=== PATIENT | female | born 1950 | race Caucasian/White ===

== ENCOUNTER 2019-01-03 14:15 | Emergency (ER) | payer MEDICARE ==
[~2019-01-03] VITALS: Ht 149.9 cm; Wt 112.5 kg
[~2019-01-03 14:15] MED LIST: ALBU2.5V8 IH; AZEL137S3 NS; CELE200C PO; CYCL10TA2 PO; DIME50TA10 PO; DOCU50CA11 PO; FLUO40CA9 PO; FLUT1DIS5 IH; FLUT9.9S NS; FOLI1TAB16 PO; GABA300C18 PO; LISI-130 PO; MONT10TA9 PO; ONDA8TAB9 PO; OXYC10TA46 PO; PANT40TA5 PO; POTA20TA84 PO; PRAV80TA2 PO; atarax
[2019-01-03] MEDS ORDERED: IPRATRPIUM/ALBUTEROL 0.5/2.5MG 3 ML NEBU. NEB ONE (15:00)
[2019-01-03 15:51] LABS: BASO # 0.1 x10^3/uL (0.0-0.2); BASO % 1 % (0-3); EOS # 0.2 x10^3/uL (0.0-0.7); EOS % 3 % (0-3); HEMATOCRIT 42.1 % (36.0-47.0); HEMOGLOBIN 14.1 g/dL (12.0-15.5); LYMPH # 2.7 x10^3/uL (1.0-4.8); LYMPH % 30 % (24-48); MEAN CORPUSCULAR HEMOGLOBIN 30 pg (25-35); MEAN CORPUSCULAR HGB CONC 33 g/dL (31-37); MEAN CORPUSCULAR VOLUME 90 fL (79-100); MONO # 0.6 x10^3/uL (0.0-1.1); MONO % 7 % (0-9); NEUT # 5.1 x10^3uL (1.8-7.7); NEUT % 59 % (31-73); PLATELET COUNT 236 x10^3/uL (140-400); RED CELL DISTRIBUTION WIDTH 13.6 % (11.5-14.5); WHITE BLOOD COUNT 8.8 x10^3/uL (4.0-11.0)
[2019-01-03 16:11] LABS: CALCIUM 9.2 mg/dL (8.5-10.1); CREATININE 1.4 mg/dL (0.6-1.0); GFR 37.4
[2019-01-03 16:16] LABS: ALBUMIN 2.9 g/dL (3.4-5.0); ALBUMIN/GLOBULIN RATIO 0.8 (1.0-1.7); TOTAL BILIRUBIN 0.5 mg/dL (0.2-1.0); TOTAL PROTEIN 6.6 g/dL (6.4-8.2)
[2019-01-03 17:00] VITALS: BP 160/68
[2019-01-03] MEDS ORDERED: oxyCODONE IR 5 MG TABLET PO ONE (17:15)
--- NOTE | 2019-01-03 17:29 | PHYS DOC ---
Past Medical History Past Medical History: Asthma, Depression, Hypertension, Other Additional Past Medical Histor: chronic back pain, chronic knee pain Past Surgical History: Other Additional Past Surgical Histo: back, knee Alcohol Use: None Drug Use: None Adult General Chief Complaint Chief Complaint: SHORTNESS OF BREATH HPI HPI 60-year-old female who is presenting with a chief complaint of rib pain she apparently was in a reclining chair in the ICU visiting her and it sort of moved too quickly and she got rocked off of it landing on her right chest also bumped her schuster and bumped cut on the side of her head no loss of consciousness this occurred 3 days ago the main problem right now is the pain in the right rib area is sharp worse with coughing worse with deep breathing in addition she has suffered from a recent upper respiratory infection she is getting over that no fever Review of Systems Review of Systems Constitutional: Denies fever or chills [] Eyes: Denies change in visual acuity, redness, or eye pain [] HENT: Denies nasal congestion or sore throat [] Respiratory: a [] : Denies dysuria or hematuria [] Musculoskeletal: Chronic pain Integument: Denies rash or skin lesions [] Neurologic: Denies headache, focal weakness or sensory changes [] Endocrine: Denies polyuria or polydipsia [] All other systems were reviewed and found to be within normal limits, except as documented in this note. Current Medications Current Medications Current Medications Medications (Trade) Dose Ordered Sig/Misty Start Time Stop Time Status Last Admin Dose Admin Albuterol/ Ipratropium (Duoneb) 3 ml 1X ONCE 01/03/19 15:00 01/03/19 15:01 DC 01/03/19 15:23 3 ML Oxycodone HCl (Roxicodone) 10 mg 1X ONCE 01/03/19 17:15 01/03/19 17:16 DC Allergies Allergies Allergies Coded Allergies Type Severity Reaction Last Updated Verified ibuprofen Allergy Severe Anaphylaxis -cuts off air supply per patient, TAKES ALLEVE 12/01/14 Yes Garlic. Allergy Intermediate 12/02/14 Yes Milk Containing Products Allergy Intermediate 12/02/14 Yes Penicillins Allergy Intermediate 11/29/14 No Pork/Porcine Containing Products Allergy Intermediate 12/01/14 No acetaminophen Allergy Intermediate 11/30/14 No aspirin Allergy Intermediate 11/29/14 No atorvastatin Allergy Intermediate 11/30/14 No cephalexin Allergy Intermediate 11/30/14 No chlorzoxazone Allergy Intermediate 11/30/14 No codeine Allergy Intermediate 11/29/14 No diclofenac Allergy Intermediate 11/30/14 No diphenhydramine Allergy Intermediate 11/30/14 No doxycycline Allergy Intermediate 11/30/14 No egg Allergy Intermediate 12/01/14 No erythromycin base Allergy Intermediate 11/30/14 No etodolac Allergy Intermediate 11/30/14 No ezetimibe Allergy Intermediate 11/30/14 No glucosamine Allergy Intermediate 11/30/14 No guaifenesin Allergy Intermediate 11/30/14 No hydrocodone Allergy Intermediate 11/30/14 No iodine Allergy Intermediate 11/30/14 No kiwi Allergy Intermediate 12/01/14 No methylprednisolone Allergy Intermediate 11/30/14 No orphenadrine Allergy Intermediate 11/30/14 No peanut Allergy Intermediate 12/01/14 No phenazopyridine Allergy Intermediate 11/30/14 No phenytoin Allergy Intermediate 11/30/14 No ranitidine Allergy Intermediate 11/30/14 No rosuvastatin Allergy Intermediate 11/30/14 No salicylic acid Allergy Intermediate 11/30/14 No shellfish derived Allergy Intermediate 12/01/14 No simvastatin Allergy Intermediate 11/30/14 No sulfite Allergy Intermediate 11/30/14 No tramadol Allergy Intermediate 11/30/14 No tree nut Allergy Intermediate 12/02/14 Yes aspartame Allergy Unknown 01/03/19 Yes cheese Allergy Unknown 01/03/19 Yes pork derived (porcine) Allergy Unknown 01/03/19 Yes walnut Allergy Unknown 01/03/19 Yes yellow dye Allergy Unknown 01/03/19 Yes morphine Adverse Reaction Intermediate vomiting 11/30/14 No Uncoded Allergies Type Severity Reaction Last Updated Verified LODINE Allergy Unknown HIVES 01/03/19 MSG Allergy Unknown 01/03/19 NORGETIC FORTE Allergy Unknown 01/03/19 TURTRAZINE Allergy Unknown 01/03/19 Physical Exam Physical Exam Constitutional: Well developed, well nourished, no acute distress, non-toxic appearance. [] HENT: Normocephalic, atraumatic, bilateral external ears normal, oropharynx moist, no oral exudates, nose normal. [] Eyes: PERRLA, EOMI, conjunctiva normal, no discharge. [] Neck: Normal range of motion, mild just behind the ear but no focal midline tenderness, supple, no stridor. [] Cardiovascular:Heart rate regular rhythm, no murmur [] Lungs & Thorax: Patient is tenderness to palpation of the right rib area there is witnessed ecchymosis approximately 2 cm posterior mid scapular line no crepitus respiratory sounds are normal Abdomen: Bowel sounds normal, soft, no tenderness, no masses, no pulsatile masses. [] Skin: Warm, dry, no erythema, no rash. [] Back: No tenderness, no CVA tenderness. [] Extremities: Mild at the anterior schuster tenderness, no cyanosis, no clubbing, ROM intact, 1+ edema Neurologic: Alert and oriented X 3, normal motor function, normal sensory function, no focal deficits noted. [] Psychologic: Affect normal, judgement normal, mood normal. [] Current Patient Data Vital Signs Vital Signs Date Time Temp Pulse Resp B/P (MAP) Pulse Ox O2 Delivery O2 Flow Rate FiO2 01/03/19 15:23 96 Room Air 01/03/19 14:40 98.3 68 20 197/78 (117) 98.3 Lab Values Laboratory Tests Test 01/03/19 15:40 White Blood Count 8.8 x10^3/uL (4.0-11.0) Red Blood Count 4.70 x10^6/uL (3.50-5.40) Hemoglobin 14.1 g/dL (12.0-15.5) Hematocrit 42.1 % (36.0-47.0) Mean Corpuscular Volume 90 fL (79-100) Mean Corpuscular Hemoglobin 30 pg (25-35) Mean Corpuscular Hemoglobin Concent 33 g/dL (31-37) Red Cell Distribution Width 13.6 % (11.5-14.5) Platelet Count 236 x10^3/uL (140-400) Neutrophils (%) (Auto) 59 % (31-73) Lymphocytes (%) (Auto) 30 % (24-48) Monocytes (%) (Auto) 7 % (0-9) Eosinophils (%) (Auto) 3 % (0-3) Basophils (%) (Auto) 1 % (0-3) Neutrophils # (Auto) 5.1 x10^3uL (1.8-7.7) Lymphocytes # (Auto) 2.7 x10^3/uL (1.0-4.8) Monocytes # (Auto) 0.6 x10^3/uL (0.0-1.1) Eosinophils # (Auto) 0.2 x10^3/uL (0.0-0.7) Basophils # (Auto) 0.1 x10^3/uL (0.0-0.2) Sodium Level 142 mmol/L (136-145) Potassium Level 4.0 mmol/L (3.5-5.1) Chloride Level 106 mmol/L (98-107) Carbon Dioxide Level 26 mmol/L (21-32) Anion Gap 10 (6-14) Blood Urea Nitrogen 25 mg/dL (7-20) H Creatinine 1.4 mg/dL (0.6-1.0) H Estimated GFR (Cockcroft-Gault) 37.4 BUN/Creatinine Ratio 18 (6-20) Glucose Level 105 mg/dL (70-99) H Calcium Level 9.2 mg/dL (8.5-10.1) Total Bilirubin 0.5 mg/dL (0.2-1.0) Aspartate Amino Transferase (AST) 37 U/L (15-37) Alanine Aminotransferase (ALT) 53 U/L (14-59) Alkaline Phosphatase 103 U/L (46-116) Troponin I Quantitative < 0.017 ng/mL (0.000-0.055) AY-Tfj-[id number]-Type Natriuretic Peptide 224 pg/mL (0-124) H Total Protein 6.6 g/dL (6.4-8.2) Albumin 2.9 g/dL (3.4-5.0) L Albumin/Globulin Ratio 0.8 (1.0-1.7) L Laboratory Tests 01/03/19 15:40 Laboratory Tests 01/03/19 15:40 EKG EKG []EKG shows a normal sinus rhythm rate of 56 no acute ischemic changes noted interpreted by me the time of encounter Radiology/Procedures Radiology/Procedures [] Impressions: I reviewed her chest x-ray shows no obvious fracture or pneumothorax Course & Med Decision Making Course & Med Decision Making Pertinent Labs and Imaging studies reviewed. (See chart for details) []History of hypertension as well as depression who is presenting after mechanical fall out of a reclining chair of some kind of the chest reproducible pain x-ray negative I suspect this is repeated contusion patient has pain medication to take at home was counseled on deep breathing exercises and return precautions discussed for any fever or persistent infectious symptoms she has come down with a cold but her lungs really sound pretty good overall no obvious signs of pneumonia on current chest x-ray final read is pending. Dragon Disclaimer Dragon Disclaimer This electronic medical record was generated, in whole or in part, using a voice recognition dictation system. Departure Departure Impression: Primary Impression: Rib contusion Disposition: HOME, SELF-CARE Condition: STABLE Patient Instructions: Rib Contusion HAWA ASHBY MD January 03, 2019 17:29
--- NOTE | 2019-01-04 09:46 | EKG ---
[facility] [address] [place] [address] Test Date: 2019-01-03 Test Time: 14:46:55 Pat Name: CHERY MITCHELL Department: Room: Gender: F Automotive Sales Manager: : 1950 Requested By: HAWA ASHBY Order Number: [id number] Reading MD: Measurements Intervals [place] Rate: 56 P: 50 PA: 172 QRS: -26 QRSD: 92 T: 17 QT: 454 QTc: 441 Interpretive Statements SINUS RHYTHM LEFTWARD AXIS CONSIDER LEFT VENTRICULAR HYPERTROPHY POSSIBLY ABNORMAL ECG RI6.01 Unconfirmed report Compared to ECG 11/29/2014 21:19:22 Myocardial infarct finding no longer present T-wave abnormality no longer present Possible ischemia no longer present
--- NOTE | 2019-01-04 09:48 | RAD ---
PORTABLE CHEST 1V Clinical indications: Shortness of breath. Right-sided rib pain from a fall. Comparison: November 29, 2014. Findings: No acute lung infiltrate or pleural effusion or pulmonary edema or lung mass or pneumothorax is seen. The heart size, pulmonary vasculature, mediastinum and both lew are unremarkable. No obvious rib deformity is seen. Impression: No acute radiographic abnormality is seen. Electronically signed by: Dominic Haskins MD (01/03/2019 3:20 PM) [id number]
== END 2019-01-03 17:49 | disposition home or self-care (01) ==
LOC: ER 14:15
DX: S20.211A Contusion of right front wall of thorax, initial encounter (principal); J06.9 Acute upper respiratory infection, unspecified; G89.29 Other chronic pain; I10 Essential (primary) hypertension; F32.9 Major depressive disorder, single episode, unspecified; J45.909 Unspecified asthma, uncomplicated; Z88.6 Allergy status to analgesic agent; Z91.041 Radiographic dye allergy status; Z91.012 Allergy to eggs; Z91.011 Allergy to milk products; Z91.018 Allergy to other foods; Z88.8 Allergy status to other drugs, medicaments and biological substances; W07.XXXA Fall from chair, initial encounter; Y93.89 Activity, other specified; Y92.89 Other specified places as the place of occurrence of the external cause; Y99.8 Other external cause status
CPT/HCPCS: 36415; 71045; 80053; 83880; 84484; 85025; 93005; 94640; 99285; J7620

== ENCOUNTER 2019-03-07 13:23 | Inpatient (IN) | payer MEDICARE ==
[~2019-03-07] VITALS: Ht 149.9 cm; Wt 112.0 kg
[~2019-03-07 13:23] MED LIST changes: +MONT10TA49 PO; -MONT10TA9 PO; -PANT40TA5 PO; +PANT40TA77 PO
--- NOTE | 2019-03-07 13:53 | PHYS DOC ---
Past Medical History Past Medical History: Asthma, COPD, Depression, Diabetes-Type II, Hypertension, Other Additional Past Medical Histor: chronic back pain, chronic knee pain Past Surgical History: Other Additional Past Surgical Histo: back, knee Smoking: Quit Greater Than 1 Year Alcohol Use: None Drug Use: None Adult General HPI HPI Patient is a 68 year-old female who presents to the emergency department via EMS for increasing shortness of breath, over the past few days. She states she was diagnosed with bronchitis several months ago, but began having increasing shortness of breath over the past week or so. She has had some generalized chest discomfort as well. She has had a cough productive of some brownish sputum. She is on oxygen chronically, 4 L via nasal cannula. She has not had any fevers or chills, nausea, vomiting, or abdominal pain. There are no alleviating, or exac erbating factors to her symptoms otherwise. Review of Systems Review of Systems Constitutional: Denies fever or chills [] Eyes: Denies change in visual acuity, redness, or eye pain [] HENT: Denies nasal congestion or sore throat [] Respiratory: Reports cough & shortness of breath [] Cardiovascular: No additional information not addressed in HPI [] GI: Denies abdominal pain, nausea, vomiting, bloody stools or diarrhea [] : Denies dysuria or hematuria [] Musculoskeletal: Denies back pain or joint pain [] Integument: Denies rash or skin lesions [] Neurologic: Denies headache, focal weakness or sensory changes [] Endocrine: Denies polyuria or polydipsia [] All other systems were reviewed and found to be within normal limits, except as documented in this note. Current Medications Current Medications Current Medications Medications (Trade) Dose Ordered Sig/Misty Start Time Stop Time Status Last Admin Dose Admin Albuterol/ Ipratropium (Duoneb) 3 ml 1X ONCE 03/07/19 14:00 03/07/19 14:01 DC 03/07/19 14:06 3 ML Allergies Allergies Allergies Coded Allergies Type Severity Reaction Last Updated Verified ibuprofen Allergy Severe Anaphylaxis -cuts off air supply per patient, TAKES ALLEVE 12/01/14 Yes Garlic. Allergy Intermediate 12/02/14 Yes Milk Containing Products Allergy Intermediate 12/02/14 Yes Penicillins Allergy Intermediate 11/29/14 No Pork/Porcine Containing Products Allergy Intermediate 12/01/14 No acetaminophen Allergy Intermediate 11/30/14 No aspirin Allergy Intermediate 11/29/14 No atorvastatin Allergy Intermediate 11/30/14 No cephalexin Allergy Intermediate 11/30/14 No chlorzoxazone Allergy Intermediate 11/30/14 No codeine Allergy Intermediate 11/29/14 No diclofenac Allergy Intermediate 11/30/14 No diphenhydramine Allergy Intermediate 11/30/14 No doxycycline Allergy Intermediate 11/30/14 No egg Allergy Intermediate 12/01/14 No erythromycin base Allergy Intermediate 11/30/14 No etodolac Allergy Intermediate 11/30/14 No ezetimibe Allergy Intermediate 11/30/14 No glucosamine Allergy Intermediate 11/30/14 No guaifenesin Allergy Intermediate 11/30/14 No hydrocodone Allergy Intermediate 11/30/14 No iodine Allergy Intermediate 11/30/14 No kiwi Allergy Intermediate 12/01/14 No methylprednisolone Allergy Intermediate 11/30/14 No orphenadrine Allergy Intermediate 11/30/14 No peanut Allergy Intermediate 12/01/14 No phenazopyridine Allergy Intermediate 11/30/14 No phenytoin Allergy Intermediate 11/30/14 No ranitidine Allergy Intermediate 11/30/14 No rosuvastatin Allergy Intermediate 11/30/14 No salicylic acid Allergy Intermediate 11/30/14 No shellfish derived Allergy Intermediate 12/01/14 No simvastatin Allergy Intermediate 11/30/14 No sulfite Allergy Intermediate 11/30/14 No tramadol Allergy Intermediate 11/30/14 No tree nut Allergy Intermediate 12/02/14 Yes aspartame Allergy Unknown 01/03/19 Yes cheese Allergy Unknown 01/03/19 Yes pork derived (porcine) Allergy Unknown 01/03/19 Yes walnut Allergy Unknown 01/03/19 Yes yellow dye Allergy Unknown 01/03/19 Yes morphine Adverse Reaction Intermediate vomiting 11/30/14 No Uncoded Allergies Type Severity Reaction Last Updated Verified LODINE Allergy Unknown HIVES 01/03/19 MSG Allergy Unknown 01/03/19 NORGETIC FORTE Allergy Unknown 01/03/19 TURTRAZINE Allergy Unknown 01/03/19 Physical Exam Physical Exam PHYSICAL EXAM: CONSTITUTIONAL: Well developed, well nourished HEAD: normocephalic, atraumatic EENT: PERRL, EOMI. Conjunctivae normal color, sclerae non-icteric; moist mucous membranes. NECK: Supple, non-tender; no meningismus. LUNGS: Patient exhibits tachypnea and moderate respiratory difficulty. Her oxygen saturation, however, on 4 L nasal cannula, is normal. There are diffuse s cattered wheezes in all lung conley, with some diminished breath sounds and crackles in the left lung base greater than right. HEART: Regular rate and rhythm, no murmur CHEST: No deformity; non-tender ABDOMEN: The abdomen is soft, and non-tender, no masses or bruits. EXTREM: Normal ROM; no deformity, no calf tenderness. Normal pulses palpable in all extremities. There is mild bilateral pedal edema. SKIN: No rash; no diaphoresis NEURO: Alert; normal speech and cognition; CN's grossly intact; strength grossly intact without focal deficit. BACK: No CVA TTP. Current Patient Data Vital Signs Vital Signs Date Time Temp Pulse Resp B/P (MAP) Pulse Ox O2 Delivery O2 Flow Rate FiO2 03/07/19 14:08 93 Nasal Cannula 4.0 03/07/19 13:30 98.9 62 26 204/94 (130) 98.9 Lab Values Laboratory Tests Test 03/07/19 14:05 03/07/19 14:30 O2 Saturation 93 % (92-99) Arterial Blood pH 7.48 (7.35-7.45) H Arterial Blood pCO2 at Patient Temp 34 mmHg (35-46) L Arterial Blood pO2 at Patient Temp 62 mmHg (65-108) L Arterial Blood HCO3 24 mmol/L (21-28) Arterial Blood Base Excess 1 mmol/L (-3-3) Oxyhemoglobin 92.0 % Methemoglobin 0.4 % (0.0-1.9) Carbon Monoxide, Quantitative 0.1 % (0.0-1.9) FiO2 4 lpm nc White Blood Count 12.8 x10^3/uL (4.0-11.0) H Red Blood Count 4.67 x10^6/uL (3.50-5.40) Hemoglobin 14.2 g/dL (12.0-15.5) Hematocrit 42.6 % (36.0-47.0) Mean Corpuscular Volume 91 fL (79-100) Mean Corpuscular Hemoglobin 30 pg (25-35) Mean Corpuscular Hemoglobin Concent 33 g/dL (31-37) Red Cell Distribution Width 14.0 % (11.5-14.5) Platelet Count 206 x10^3/uL (140-400) Neutrophils (%) (Auto) 81 % (31-73) H Lymphocytes (%) (Auto) 11 % (24-48) L Monocytes (%) (Auto) 6 % (0-9) Eosinophils (%) (Auto) 1 % (0-3) Basophils (%) (Auto) 0 % (0-3) Neutrophils # (Auto) 10.4 x10^3/uL (1.8-7.7) H Lymphocytes # (Auto) 1.4 x10^3/uL (1.0-4.8) Monocytes # (Auto) 0.7 x10^3/uL (0.0-1.1) Eosinophils # (Auto) 0.1 x10^3/uL (0.0-0.7) Basophils # (Auto) 0.0 x10^3/uL (0.0-0.2) Sodium Level 140 mmol/L (136-145) Potassium Level 4.0 mmol/L (3.5-5.1) Chloride Level 101 mmol/L (98-107) Carbon Dioxide Level 28 mmol/L (21-32) Anion Gap 11 (6-14) Blood Urea Nitrogen 12 mg/dL (7-20) Creatinine 1.0 mg/dL (0.6-1.0) Estimated GFR (Cockcroft-Gault) 55.1 BUN/Creatinine Ratio 12 (6-20) Glucose Level 130 mg/dL (70-99) H Lactic Acid Level 3.1 mmol/L (0.4-2.0) H Calcium Level 9.3 mg/dL (8.5-10.1) Magnesium Level 1.6 mg/dL (1.8-2.4) L Total Bilirubin 0.9 mg/dL (0.2-1.0) Aspartate Amino Transferase (AST) 28 U/L (15-37) Alanine Aminotransferase (ALT) 29 U/L (14-59) Alkaline Phosphatase 101 U/L (46-116) Troponin I Quantitative 0.017 ng/mL (0.000-0.055) ZK-[id number]-Type Natriuretic Peptide 895 pg/mL (0-124) H Total Protein 7.1 g/dL (6.4-8.2) Albumin 3.2 g/dL (3.4-5.0) L Albumin/Globulin Ratio 0.8 (1.0-1.7) L Lipase 35 U/L (73-393) L Laboratory Tests 03/07/19 14:30 Laboratory Tests 03/07/19 14:30 EKG EKG Normal sinus rhythm at a rate of 60 beats for minute, left axis deviation, normal intervals, nonspecific ST/T changes, there is significant motion artifact which does limit the quality of the EKG.[] Radiology/Procedures Radiology/Procedures [PROCEDURE: PORTABLE CHEST 1V EXAM: CHEST 1 VIEW History: Shortness of breath COMPARISON: 01/03/2019 TECHNIQUE: Single portable radiograph of the chest FINDINGS: Low lung volumes and technique accentuates heart size and pulmonary vascularity. Moderate cardiomegaly. Moderate prominent appearing bilateral interstitial lung markings. Mild bibasilar lung airspace opacities likely atelectasis or infiltrates. IMPRESSION: Moderate prominent appearing bilateral interstitial lung markings likely congestive changes. ] Course & Med Decision Making Course & Med Decision Making Pertinent Labs and Imaging studies reviewed. (See chart for details) []3:15 PM:The patient's condition remains stable. I spoke with the hospitalist, who accepted the patient to the hospital for further evaluation and treatment. Dragon Disclaimer Dragon Disclaimer This electronic medical record was generated, in whole or in part, using a voice recognition dictation system. Departure Departure Impression: Primary Impression: Dyspnea Additional Impression: COPD (chronic obstructive pulmonary disease) Disposition: ADMITTED INPATIENT Admitting Physician: WENDI Condition: STABLE Referrals: CHRISSIE BREWSTER DO (PCP) Problem Qualifiers MICHELLE REYES MD Mar 07, 2019 13:53
[2019-03-07] MEDS ORDERED: IPRATRPIUM/ALBUTEROL 0.5/2.5MG 3 ML NEBU. NEB ONE (14:00)
[2019-03-07 14:15] LABS: BASE EXCESS COOX 1 mmol/L (-3-3); HCO3 COOX 24 mmol/L (21-28); METHEMOGLOBIN 0.4 % (0.0-1.9); PCO2 COOX 34 mmHg (35-46); PO2 COOX 62 mmHg (65-108); SAT O2 COOX 93 % (92-99)
--- NOTE | 2019-03-07 14:33 | RAD ---
EXAM: CHEST 1 VIEW History: Shortness of breath COMPARISON: 01/03/2019 TECHNIQUE: Single portable radiograph of the chest FINDINGS: Low lung volumes and technique accentuates heart size and pulmonary vascularity. Moderate cardiomegaly. Moderate prominent appearing bilateral interstitial lung markings. Mild bibasilar lung airspace opacities likely atelectasis or infiltrates. IMPRESSION: Moderate prominent appearing bilateral interstitial lung markings likely congestive changes. Electronically signed by: Tiburcio Evangelista MD (03/07/2019 2:31 PM) [place] [id number]
--- NOTE | 2019-03-07 14:45 | NUR ---
Report was taken by Román ZENG from ER nurse on [facility]. Pt's daughter Roselia will be in later today of her list of medications and adverse effects on her 27ish allergies to medications. Pt received a breathing treatment in ER and once she came up on this floor.
[2019-03-07 14:50] LABS: BASO % 0 % (0-3); EOS # 0.1 x10^3/uL (0.0-0.7); EOS % 1 % (0-3); HEMATOCRIT 42.6 % (36.0-47.0); HEMOGLOBIN 14.2 g/dL (12.0-15.5); LYMPH # 1.4 x10^3/uL (1.0-4.8); LYMPH % 11 % (24-48); MEAN CORPUSCULAR HEMOGLOBIN 30 pg (25-35); MEAN CORPUSCULAR HGB CONC 33 g/dL (31-37); MEAN CORPUSCULAR VOLUME 91 fL (79-100); MONO # 0.7 x10^3/uL (0.0-1.1); MONO % 6 % (0-9); NEUT # 10.4 x10^3/uL (1.8-7.7); NEUT % 81 % (31-73); PLATELET COUNT 206 x10^3/uL (140-400); RED BLOOD COUNT 4.67 x10^6/uL (3.50-5.40); WHITE BLOOD COUNT 12.8 x10^3/uL (4.0-11.0)
--- NOTE | 2019-03-07 14:52 | EKG ---
[facility] [address] [place] [address] Test Date: 2019-03-07 Test Time: 13:40:22 Pat Name: CHERY MITCHELL Department: Room: Gender: F Clinical Lab Technologist: : 1950 Requested By: MICHELLE REYES Order Number: [id number] Reading MD: Measurements Intervals [place] Rate: 60 P: MN: QRS: -23 QRSD: 90 T: 52 QT: 434 QTc: 438 Interpretive Statements ATRIAL FIBRILLATION LEFTWARD AXIS QRS(T) CONTOUR ABNORMALITY CONSISTENT WITH ANTERIOR INFARCT PROBABLY OLD T ABNORMALITY IN HIGH LATERAL LEADS ABNORMAL ECG No previous ECG available for comparison
[2019-03-07 15:00] LABS: CALCIUM 9.3 mg/dL (8.5-10.1); GFR 55.1
[2019-03-07 15:06] LABS: ALBUMIN 3.2 g/dL (3.4-5.0); ALBUMIN/GLOBULIN RATIO 0.8 (1.0-1.7); MAGNESIUM 1.6 mg/dL (1.8-2.4); TOTAL BILIRUBIN 0.9 mg/dL (0.2-1.0); TOTAL PROTEIN 7.1 g/dL (6.4-8.2)
--- NOTE | 2019-03-07 15:38 | PDOC1 ---
History and Physical Date of Admission Date of Admission DATE: 03/07/19 TIME: 15:37 Identification/Chief Complaint Chief Complaint Shortness of breath Source Source: Patient History of Present Illness History of Present Illness Ms Reid is a 68yo F w/ PMHx Asthma, COPD, Depression, Diabetes-Type II, Hypertension, chronic back pain, chronic knee pain, ex-smoker who presents to the emergency department via EMS for increasing shortness of breath, over the past few days. She states she was diagnosed with bronchitis several months ago, but began having increasing shortness of breath over the past week or so. She has had some generalized chest discomfort as well She has had a cough productive of some brownish sputum. She is on oxygen chronically, 4 L via nasal cannula. She has also had fevers and chills which began this morning. She also notes some left arm pain, left neck pain and the worst headache of her life during my examination. She denies nausea, vomiting, or abdominal pain. There are no alleviating, or exacerbating factors to her symptoms otherwise. She has been bad about taking her medications over the last couple of weeks due to stress. She just recently lost her a couple of weeks ago, remembers me from taking care of him. Blood pressure was 212/113, lactate 3.1, Mg 1.6, and BNP greater than 8000 with congestion bilaterally on her CXR. Admitted for further care. Past Medical History Cardiovascular: HTN, Hyperlipidemia Pulmonary: Asthma, Other CENTRAL NERVOUS SYSTEM: Other GI: Diverticulosis, GERD, Other Heme/Onc: No pertinent hx Hepatobiliary: No pertinent hx Psych: Anxiety, Depression Musculoskeletal: Osteoarthritis Rheumatologic: No pertinent hx Infectious disease: No pertinent hx Renal/: Urinary Incontinence Endocrine: No pertinent hx Past Surgical History Past Surgical History: Cholecystectomy, Total knee replacement, Other Family History Family History: Coronary Artery Disease Social History Smoke: Quit ALCOHOL: none Drugs: None Current Problem List Problem List Problems Medical Problems: (1) COPD (chronic obstructive pulmonary disease) Status: Acute (2) Dyspnea Status: Acute Current Medications Current Medications Current Medications Albuterol/ Ipratropium (Duoneb) 3 ml 1X ONCE NEB Last administered on 03/07/19at 14:06; Start 03/07/19 at 14:00; Stop 03/07/19 at 14:01; Status DC Active Scripts Active Reported Celebrex (Celecoxib) 200 Mg Capsule 200 Mg PO BID PRN 30 Days Pantoprazole Sodium 40 Mg Tablet.dr 1 Tab PO DAILY Advair 500-50 Diskus (Fluticasone/Salmeterol) 1 Each Disk.w.dev 1 Puff IH BID Dimenhydrinate 50 Mg Tablet 50 Mg PO Colace Clear (Docusate Sodium) 50 Mg Capsule 50 Mg PO Zofran (Ondansetron Hcl) 8 Mg Tablet 1 Tab PO Q8HRS Gabapentin 300 Mg Capsule 1 Cap PO TID Prozac (Fluoxetine Hcl) 40 Mg Capsule 1 Cap PO DAILY Oxycontin (Oxycodone Hcl) 10 Mg Tab.er.12h 1 Tab PO BID Lisinopril 40 Mg Tablet 1 Tab PO DAILY Pravastatin Sodium 80 Mg Tablet 1 Tab PO DAILY Folic Acid 1 Mg Tablet 1 Tab PO DAILY Proair Hfa Inhaler (Albuterol Sulfate) 8.5 Gm Hfa.aer.ad 2 Puff IH PRN Q4-6HRS Cyclobenzaprine Hcl 10 Mg Tablet 1 Tab PO TID Montelukast Sodium Tablet (Montelukast Sodium) 10 Mg Tablet 1 Tab PO DAILY K-Tab ER (Potassium Chloride) 20 Meq Tablet.er 20 Meq PO DAILY Azelastine Hcl 137 Mcg/0.137 Ml [place].pump 2 [place] NS BID [atarax] Flonase Allergy Relief (Fluticasone Propionate) 9.9 Ml [place].susp 9.9 Ml NS Allergies Allergies: Coded Allergies: ibuprofen (Verified Allergy, Severe, Anaphylaxis -cuts off air supply per patient, TAKES ALLEVE, 12/01/14) Garlic. (Verified Allergy, Intermediate, 12/02/14) Milk Containing Products (Verified Allergy, Intermediate, 12/02/14) CHEESE Penicillins (Unverified Allergy, Intermediate, 11/29/14) Pork/Porcine Containing Products (Unverified Allergy, Intermediate, 12/01/14) acetaminophen (Unverified Allergy, Intermediate, 11/30/14) aspirin (Unverified Allergy, Intermediate, 11/29/14) atorvastatin (Unverified Allergy, Intermediate, 11/30/14) cephalexin (Unverified Allergy, Intermediate, 11/30/14) chlorzoxazone (Unverified Allergy, Intermediate, 11/30/14) codeine (Unverified Allergy, Intermediate, 4/15/15) diclofenac (Unverified Allergy, Intermediate, 11/30/14) diphenhydramine (Unverified Allergy, Intermediate, 11/30/14) doxycycline (Unverified Allergy, Intermediate, 11/30/14) egg (Unverified Allergy, Intermediate, 12/01/14) erythromycin base (Unverified Allergy, Intermediate, 11/30/14) etodolac (Unverified Allergy, Intermediate, 11/30/14) ezetimibe (Unverified Allergy, Intermediate, 11/30/14) glucosamine (Unverified Allergy, Intermediate, 11/30/14) guaifenesin (Unverified Allergy, Intermediate, 11/30/14) hydrocodone (Unverified Allergy, Intermediate, 11/30/14) iodine (Unverified Allergy, Intermediate, 11/30/14) kiwi (Unverified Allergy, Intermediate, 12/01/14) methylprednisolone (Unverified Allergy, Intermediate, 11/30/14) orphenadrine (Unverified Allergy, Intermediate, 11/30/14) peanut (Unverified Allergy, Intermediate, 12/01/14) phenazopyridine (Unverified Allergy, Intermediate, 11/30/14) phenytoin (Unverified Allergy, Intermediate, 11/30/14) ranitidine (Unverified Allergy, Intermediate, 11/30/14) rosuvastatin (Unverified Allergy, Intermediate, 11/30/14) salicylic acid (Unverified Allergy, Intermediate, 11/30/14) shellfish derived (Unverified Allergy, Intermediate, 12/01/14) simvastatin (Unverified Allergy, Intermediate, 11/30/14) sulfite (Unverified Allergy, Intermediate, 11/30/14) tramadol (Unverified Allergy, Intermediate, 11/30/14) tree nut (Verified Allergy, Intermediate, 12/02/14) [employer] aspartame (Verified Allergy, Unknown, 01/03/19) cheese (Verified Allergy, Unknown, 01/03/19) pork derived (porcine) (Verified Allergy, Unknown, 01/03/19) walnut (Verified Allergy, Unknown, 01/03/19) yellow dye (Verified Allergy, Unknown, 01/03/19) morphine (Unverified Adverse Reaction, Intermediate, vomiting , 11/30/14) Uncoded Allergies: LODINE (Allergy, Unknown, HIVES, 01/03/19) MSG (Allergy, Unknown, 01/03/19) NORGETIC FORTE (Allergy, Unknown, 01/03/19) TURTRAZINE (Allergy, Unknown, 01/03/19) ROS General: YES: Chills, Fatigue, Malaise; No: Night Sweats, Appetite, Other PSYCHOLOGICAL ROS: YES: Anxiety; No: Behavioral Disorder, Concentration difficultie, Decreased libido, Depression, Disorientation, Hallucinations, Hostility, Irritablity, Memory difficulties, Mood Swings, Obsessive thoughts, Physical abuse, Sexual abuse, Sleep disturbances, Suicidal ideation, Other Eyes: Yes Uses glasses; No Blurry vision, No Decreased vision, No Double vision, No Dry eyes, No Excessive tearing, No Eye Pain, No Itchy Eyes, No Loss of vision, No Photophobia, No [place]om[place], No Uses contacts, No Other HEENT: YES: Heacaches; No: Visual Changes, Hearing change, Nasal congestion, Nasal discharge, Oral lesions, Sinus pain, Sore Throat, Epistaxis, Sneezing, Snoring, Tinnitus, Vertigo, Vocal changes, Other ALLERGY AND IMMUNOLOGY: No: Hives, Insect Bite Sensitivity, Itchy/Watery Eyes, Nasal Congestion, Post Nasal Drip, Seasonal Allergies, Other Hematological and Lymphatic: No: Bleeding Problems, Blood Clots, Blood Transfusions, Brusing, Night Sweats, Pallor, Swollen Lymph Nodes, Other ENDOCRINE: No: Breast Changes, Galactorrhea, Hair Pattern Changes, Hot Flashes, Malaise/lethargy, Mood Swings, Palpitations, Polydipsia/polyuria, Skin Changes, Temperature Intolerance, Unexpected Weight Changes, Other Breast: No New/Changing Breast Lumps, No Nipple changes, No Nipple discharge, No Other Respiratory: YES: Cough, Shortness of breath, SOB with excertion, Sputum Changes, Tachypnea, Wheezing; No: Hemoptysis, Orthopnea, Pleuritic Pain, Stridor, Other Cardiovascular: yes Orthopnea, yes Paroxysmal Noc. Dyspnea, yes Edema; No Chest Pain, No Palpitations, No Lt Headedness, No Other Gastrointestinal: No Nausea, No Vomiting, No Abdominal Pain, No Diarrhea, No Constipation, No Melena, No Hematochezia, No Other Genitourinary: No Dysuria, No Frequency, No Incontinence, No Hematuria, No Retention, No Discharge, No Urgency, No Pain, No Flank Pain, No Other, No , No , No , No , No , No , No Musculoskeletal: No Gait Disturbance, No Joint Pain, No Joint Stiffness, No Joint Swelling, No Muscle Pain, No Muscular Weakness, No Pain In:, No Swelling In:, No Other Neurological: Yes Headaches; No Behavorial Changes, No Bowel/Bladder ControlChng, No Confusion, No Dizziness, No Gait Disturbance, No Impaired Coord/balance, No Memory Loss, No Numbness/Tingling, No Seizures, No Speech Problems, No Tremors, No Visual Changes, No Weakness, No Other Skin: No Dry Skin, No Eczema, No Hair Changes, No Lumps, No Mole Changes, No Mottling, No Nail Changes, No Pruritus, No Rash, No Skin Lesion Changes, No Other, No Acne Physical Exam General: Alert, Oriented X3, Cooperative, No acute distress HEENT: Atraumatic, PERRLA, EOMI, Mucous membr. moist/pink Lungs: Other (Bilateral crackles and wheezing) Heart: S1S2, RRR, no gallops, no murmurs Abdomen: Normal bowel sounds, Soft, No tenderness, No hepatosplenomegaly, No masses Extremities: No clubbing, No cyanosis, No edema, Normal pulses, No tenderness/swelling Skin: No rashes, No breakdown, No significant lesion Neuro: Normal speech, Strength at 5/5 X4 ext, Normal tone, Sensation intact, Cranial nerves 3-12 NL, Reflexes 2+ Psych/Mental Status: Mental status NL, Mood NL Vitals Vitals Vital Signs Date Time Temp Pulse Resp B/P (MAP) Pulse Ox O2 Delivery O2 Flow Rate FiO2 03/07/19 14:08 93 Nasal Cannula 4.0 03/07/19 13:30 98.9 62 26 204/94 (130) 98.9 Labs Labs Laboratory Tests Test 03/07/19 14:05 03/07/19 14:30 O2 Saturation 93 % (92-99) Arterial Blood pH 7.48 (7.35-7.45) Arterial Blood pCO2 at Patient Temp 34 mmHg (35-46) Arterial Blood pO2 at Patient Temp 62 mmHg (65-108) Arterial Blood HCO3 24 mmol/L (21-28) Arterial Blood Base Excess 1 mmol/L (-3-3) Oxyhemoglobin 92.0 % Methemoglobin 0.4 % (0.0-1.9) Carbon Monoxide, Quantitative 0.1 % (0.0-1.9) FiO2 4 lpm nc White Blood Count 12.8 x10^3/uL (4.0-11.0) Red Blood Count 4.67 x10^6/uL (3.50-5.40) Hemoglobin 14.2 g/dL (12.0-15.5) Hematocrit 42.6 % (36.0-47.0) Mean Corpuscular Volume 91 fL (79-100) Mean Corpuscular Hemoglobin 30 pg (25-35) Mean Corpuscular Hemoglobin Concent 33 g/dL (31-37) Red Cell Distribution Width 14.0 % (11.5-14.5) Platelet Count 206 x10^3/uL (140-400) Neutrophils (%) (Auto) 81 % (31-73) Lymphocytes (%) (Auto) 11 % (24-48) Monocytes (%) (Auto) 6 % (0-9) Eosinophils (%) (Auto) 1 % (0-3) Basophils (%) (Auto) 0 % (0-3) Neutrophils # (Auto) 10.4 x10^3/uL (1.8-7.7) Lymphocytes # (Auto) 1.4 x10^3/uL (1.0-4.8) Monocytes # (Auto) 0.7 x10^3/uL (0.0-1.1) Eosinophils # (Auto) 0.1 x10^3/uL (0.0-0.7) Basophils # (Auto) 0.0 x10^3/uL (0.0-0.2) Sodium Level 140 mmol/L (136-145) Potassium Level 4.0 mmol/L (3.5-5.1) Chloride Level 101 mmol/L (98-107) Carbon Dioxide Level 28 mmol/L (21-32) Anion Gap 11 (6-14) Blood Urea Nitrogen 12 mg/dL (7-20) Creatinine 1.0 mg/dL (0.6-1.0) Estimated GFR (Cockcroft-Gault) 55.1 BUN/Creatinine Ratio 12 (6-20) Glucose Level 130 mg/dL (70-99) Lactic Acid Level 3.1 mmol/L (0.4-2.0) Calcium Level 9.3 mg/dL (8.5-10.1) Magnesium Level 1.6 mg/dL (1.8-2.4) Total Bilirubin 0.9 mg/dL (0.2-1.0) Aspartate Amino Transf (AST/SGOT) 28 U/L (15-37) Alanine Aminotransferase (ALT/SGPT) 29 U/L (14-59) Alkaline Phosphatase 101 U/L (46-116) Troponin I Quantitative 0.017 ng/mL (0.000-0.055) ZQ-Zcs-I-Type Natriuretic Peptide 895 pg/mL (0-124) Total Protein 7.1 g/dL (6.4-8.2) Albumin 3.2 g/dL (3.4-5.0) Albumin/Globulin Ratio 0.8 (1.0-1.7) Lipase 35 U/L (73-393) Laboratory Tests Test 03/07/19 14:05 03/07/19 14:30 O2 Saturation 93 % (92-99) Arterial Blood pH 7.48 (7.35-7.45) Arterial Blood pCO2 at Patient Temp 34 mmHg (35-46) Arterial Blood pO2 at Patient Temp 62 mmHg (65-108) Arterial Blood HCO3 24 mmol/L (21-28) Arterial Blood Base Excess 1 mmol/L (-3-3) Oxyhemoglobin 92.0 % Methemoglobin 0.4 % (0.0-1.9) Carbon Monoxide, Quantitative 0.1 % (0.0-1.9) FiO2 4 lpm nc White Blood Count 12.8 x10^3/uL (4.0-11.0) Red Blood Count 4.67 x10^6/uL (3.50-5.40) Hemoglobin 14.2 g/dL (12.0-15.5) Hematocrit 42.6 % (36.0-47.0) Mean Corpuscular Volume 91 fL (79-100) Mean Corpuscular Hemoglobin 30 pg (25-35) Mean Corpuscular Hemoglobin Concent 33 g/dL (31-37) Red Cell Distribution Width 14.0 % (11.5-14.5) Platelet Count 206 x10^3/uL (140-400) Neutrophils (%) (Auto) 81 % (31-73) Lymphocytes (%) (Auto) 11 % (24-48) Monocytes (%) (Auto) 6 % (0-9) Eosinophils (%) (Auto) 1 % (0-3) Basophils (%) (Auto) 0 % (0-3) Neutrophils # (Auto) 10.4 x10^3/uL (1.8-7.7) Lymphocytes # (Auto) 1.4 x10^3/uL (1.0-4.8) Monocytes # (Auto) 0.7 x10^3/uL (0.0-1.1) Eosinophils # (Auto) 0.1 x10^3/uL (0.0-0.7) Basophils # (Auto) 0.0 x10^3/uL (0.0-0.2) Sodium Level 140 mmol/L (136-145) Potassium Level 4.0 mmol/L (3.5-5.1) Chloride Level 101 mmol/L (98-107) Carbon Dioxide Level 28 mmol/L (21-32) Anion Gap 11 (6-14) Blood Urea Nitrogen 12 mg/dL (7-20) Creatinine 1.0 mg/dL (0.6-1.0) Estimated GFR (Cockcroft-Gault) 55.1 BUN/Creatinine Ratio 12 (6-20) Glucose Level 130 mg/dL (70-99) Lactic Acid Level 3.1 mmol/L (0.4-2.0) Calcium Level 9.3 mg/dL (8.5-10.1) Magnesium Level 1.6 mg/dL (1.8-2.4) Total Bilirubin 0.9 mg/dL (0.2-1.0) Aspartate Amino Transf (AST/SGOT) 28 U/L (15-37) Alanine Aminotransferase (ALT/SGPT) 29 U/L (14-59) Alkaline Phosphatase 101 U/L (46-116) Troponin I Quantitative 0.017 ng/mL (0.000-0.055) RQ-Gzr-R-Type Natriuretic Peptide 895 pg/mL (0-124) Total Protein 7.1 g/dL (6.4-8.2) Albumin 3.2 g/dL (3.4-5.0) Albumin/Globulin Ratio 0.8 (1.0-1.7) Lipase 35 U/L (73-393) Images Images CXR - Moderate prominent appearing bilateral interstitial lung markings likely congestive changes. VTE Prophylaxis Ordered VTE Prophylaxis Devices: Yes VTE Pharmacological Prophylaxi: Yes Assessment/Plan Assessment/Plan A/P: Acute hypoxia - COPD exacerbation plus apparent CHF exacerbation, will diurese and start on steroids, antibiotics COPD - O2 dependent at baseline, in current exacerbation with fever/chills/eliseo rs at home and sputum changes will cont antibiotics, nebs Depression - worsening with the recent of her . Will cont her home prozac Diabetes-Type II - basal bolus plus regimen in house Hypertensive urgency - will get CT head for her headache. Will place on prns, restart home meds Chronic back pain and chronic knee pain - will cont home meds Pulmonary congestion - this looks like an acute CHF exacerbation and COPD exacerbation, will treat both Worst headache of life - CT head now. Compazine prn for headache Ex-smoker - counseled FEN - ADA diet PPX - lovenox FULL CODE Inpatient for hypoxic respiratory failure, likely 2 midnights. LEMUEL MURPHY MD Mar 07, 2019 15:38
[2019-03-07] MEDS ORDERED: ALBUTEROL SULFATE 2.5 MG/3 ML NEBU. INH PRN (17:00)
[2019-03-07 17:33] VITALS: BP 167/82
[2019-03-07] MEDS ORDERED: MAGNESIUM SULFATE 4GM 100 ML IV ONE (18:00)
[2019-03-07] MEDS ORDERED: EPINEPHrine 1 MG/ML VIAL SQ PRN (18:15)
[2019-03-07] MEDS ORDERED: diphenhydrAMINE 50 MG/ML VIAL IV PRN (18:15)
[2019-03-07 19:20] VITALS: BP 194/86
[2019-03-07] MEDS: IPRATRPIUM/ALBUTEROL 0.5/2.5MG 3 ML NEBU. NEB SCH (19:56)
[2019-03-07] MEDS: BUDESONIDE 0.5 MG/2 ML NEBU. NEB SCH (19:56)
--- NOTE | 2019-03-07 19:58 | NUR ---
Talked with Sintia about medications. He said we need to verify with her normal pharmacy as to her adverse effects vs. allergies to medications[facility]
[2019-03-07] MEDS: GABAPENTIN 300 MG CAPSULE. PO SCH (21:26)
[2019-03-07] MEDS: oxyCODONE/APAP 5/325 1 TAB TABLET PO PRN (21:27)
[2019-03-07] MEDS: ENOXAPARIN 40 MG/0.4 ML SYRINGE. SQ SCH (21:27)
[2019-03-07] MEDS: CYCLOBENZAPRINE 10 MG TABLET. PO SCH (21:27)
[2019-03-07] MEDS: DOXYCYCLINE HYCLATE 100 MG in IV DEXTROSE 5% 100ML 100 ML IV SCH (21:28)
[2019-03-07] MEDS: methylPREDNISolone SOD SUCC PF 40 MG/ML VIAL. IV SCH (21:28)
[2019-03-07] MEDS: AZELASTINE NASAL SPRAY 30ML BOTTLE. NS SCH (21:31)
[2019-03-07 21:45] VITALS: BP 154/74
[2019-03-08 03:25] VITALS: BP 152/71
[2019-03-08] MEDS: oxyCODONE/APAP 5/325 1 TAB TABLET PO PRN ×2 (04:19→11:11)
[2019-03-08] MEDS: methylPREDNISolone SOD SUCC PF 40 MG/ML VIAL. IV SCH ×3 (06:54→22:27)
[2019-03-08 07:00] VITALS: BP 150/72
[2019-03-08] MEDS: IPRATRPIUM/ALBUTEROL 0.5/2.5MG 3 ML NEBU. NEB SCH ×4 (07:14→19:17)
[2019-03-08] MEDS: BUDESONIDE 0.5 MG/2 ML NEBU. NEB SCH ×2 (07:14→19:17)
--- NOTE | 2019-03-08 08:28 | RAD ---
EXAM: CT Head without IV contrast CLINICAL HISTORY: COMPARISON: None. TECHNIQUE: Routine CT of the head without contrast. Soft tissues and bone windows were reviewed. PQRS compliance statement - One or more of the following individualized dose reduction techniques were utilized for this study: 1. Automated exposure control 2. Adjustment of the mA and/or kV according to patient size 3. Use of iterative reconstruction technique FINDINGS: There is no evidence of hemorrhage, mass or extra-axial fluid collection. Miller-white differentiation is maintained with no evidence of edema. There is no mass effect or shift of the intracranial structures. The ventricles, basilar cisterns and cortical sulci are normal in size and configuration for the patients stated age. The cerebellum and brainstem are unremarkable. The calvarium demonstrates no evidence of fracture or focal lesion. There is normal aeration of the visualized paranasal sinuses and mastoid air cells. The visualized portions of the orbits are normal. IMPRESSION: No evidence for acute intracranial process. Electronically signed by: Real Mitchell MD (03/08/2019 8:25 AM) [facility]
[2019-03-08] MEDS ORDERED: ONDANSETRON PF 4 MG/2 ML VIAL. IV PRN (08:30)
[2019-03-08] MEDS ORDERED: NICOTINE 21MG PATCH. TD PRN (08:30)
[2019-03-08 08:32] LABS: BASO % 0 % (0-3); EOS % 0 % (0-3); HEMATOCRIT 37.5 % (36.0-47.0); HEMOGLOBIN 12.9 g/dL (12.0-15.5); LYMPH % 11 % (24-48); MEAN CORPUSCULAR HEMOGLOBIN 31 pg (25-35); MEAN CORPUSCULAR HGB CONC 35 g/dL (31-37); MEAN CORPUSCULAR VOLUME 90 fL (79-100); MONO # 0.2 x10^3/uL (0.0-1.1); MONO % 2 % (0-9); NEUT # 7.8 x10^3/uL (1.8-7.7); NEUT % 87 % (31-73); PLATELET COUNT 179 x10^3/uL (140-400); RED BLOOD COUNT 4.15 x10^6/uL (3.50-5.40); RED CELL DISTRIBUTION WIDTH 14.3 % (11.5-14.5); WHITE BLOOD COUNT 9.1 x10^3/uL (4.0-11.0)
[2019-03-08 08:40] LABS: CALCIUM 8.4 mg/dL (8.5-10.1); CREATININE 0.9 mg/dL (0.6-1.0); GFR 62.3; POTASSIUM 3.8 mmol/L (3.5-5.1)
[2019-03-08] MEDS: AZELASTINE NASAL SPRAY 30ML BOTTLE. NS SCH ×2 (08:51→21:12)
[2019-03-08] MEDS: CYCLOBENZAPRINE 10 MG TABLET. PO SCH ×3 (08:52→21:12)
[2019-03-08] MEDS: PANTOPRAZOLE 40 MG TABLET.DR. PO SCH (08:52)
[2019-03-08] MEDS: POTASSIUM CHLORIDE 20 MEQ TABLET.ER. PO SCH (08:52)
[2019-03-08] MEDS: GABAPENTIN 300 MG CAPSULE. PO SCH ×3 (08:53→21:12)
[2019-03-08] MEDS: LISINOPRIL 20 MG TABLET PO SCH (08:53)
[2019-03-08] MEDS: MONTELUKAST SODIUM 10 MG TABLET. PO SCH (08:53)
[2019-03-08] MEDS: FOLIC ACID 1 MG TABLET. PO SCH (08:53)
[2019-03-08] MEDS: FLUoxetine HCL 20 MG CAPSULE PO SCH (08:53)
[2019-03-08] MEDS: DOXYCYCLINE HYCLATE 100 MG in IV DEXTROSE 5% 100ML 100 ML IV SCH ×2 (08:54→21:11)
[2019-03-08] MEDS: FUROSEMIDE 40 MG/4 ML VIAL. IVP SCH (08:54)
[2019-03-08] MEDS: BENZONATATE 100 MG CAPSULE. PO SCH ×3 (08:57→21:12)
[2019-03-08 09:32] LABS: % LYMPHS 9 % (24-48); % MONOS 2 % (0-10); % SEGS 89 % (35-66); PLT ESTIMATE ADEQUATE (ADEQUATE)
[2019-03-08 11:00] VITALS: BP 153/62
--- NOTE | 2019-03-08 11:10 | CONS ---
DATE OF CONSULTATION: 03/08/2019 PULMONARY CONSULTATION ATTENDING PHYSICIAN: Eric Patricio MD REASON FOR CONSULTATION: Dyspnea, cough. HISTORY OF PRESENT ILLNESS: The patient is a 68-year-old obese patient who has a BMI of 50.5. She has no significant history of tobacco use. She has history of asthma per history. The patient presented to the hospital with complaint of shortness of breath for the last several days. In addition, she has some ankle swelling as well. She says she has a cough which has been present for the last 5-6 months. She says she is also on lisinopril for a long time and the cough has been accentuated since she is on lisinopril. She denies any postnasal drainage. No fever, no chills, no chest pains. She has history of obstructive sleep apnea for which she is on CPAP at nighttime. She also uses oxygen at night, but she says that she does not use it during the day. Her chest x-ray was reviewed by me and it was consistent with bilateral interstitial markings favoring congestive heart failure. No nausea, no vomiting, no diarrhea, no headaches. No focal weakness. Her BNP was greater than 8000. I have been asked to see her for further evaluation. PAST MEDICAL HISTORY: Significant for history of hypertension, hyperlipidemia, morbid obesity, history of obstructive sleep apnea, history of chronic respiratory failure, history of asthma, osteoarthritis. PAST SURGICAL HISTORY: Cholecystectomy, total knee replacement. FAMILY HISTORY: Coronary artery disease. SOCIAL HISTORY: He does not smoke cigarettes. ALLERGIES: EXTENSIVE, THEY WERE ALL REVIEWED LISTED IN HER MRAD. MEDICATIONS: All reviewed as listed in her MRAD as well including IV Lasix. She is still on 40 mg of lisinopril. On DVT prophylaxis with Lovenox and doxycycline and IV steroids. REVIEW OF SYSTEMS: A 12-point system obtained. Pertinent positives discussed in history of present illness, otherwise noncontributory. All systems that were negative were reviewed as well. PHYSICAL EXAMINATION: VITAL SIGNS: Reviewed, pulse ox 96% on 4 liters. NECK: Supple. LUNGS: With diminished breath sounds with no significant rales or wheezing. CARDIOVASCULAR: Regular rate. ABDOMEN: Soft, obese. EXTREMITIES: With some ankle edema. LABORATORY DATA: Reviewed. White cell count is 12.8, now down to 9.1, hemoglobin 12.9 and platelets are 179. ABGs with a pH of 7.48, pCO2 of 34 and a pO2 of 62 on 4 liters. BUN 12, creatinine 0.9. IMPRESSION: 1. Dyspnea with acute hypoxic respiratory failure along with ankle edema, likely related to congestive heart failure. Could be acute diastolic or systolic. 2. Abnormal chest x-ray with bilateral interstitial infiltrates, likely congestive heart failure. We will need to see the response to diuretics. 3. Chronic cough, which has been present for the last 6 months and most likely lisinopril-induced cough. 4. Morbid obesity. 5. Underlying obstructive sleep apnea with good compliance to CPAP. 6. Chronic respiratory failure with home oxygen at nighttime and p.r.n. during the day. RECOMMENDATIONS: 1. Continue with present oxygen, keep saturation 92% and above. 2. Continue diuresis and see the response to treatment. 3. If she makes no clinical improvement, then I would do a noncontrast CT chest to assess for any interstitial lung disease. 4. Continue diuresis and monitor renal function. 5. Continue bronchodilators. 6. Continue steroids. 7. Continue oral antibiotics at present. 8. Consider discontinuing lisinopril and changing to a different antihypertensive medication. 9. Obtain echocardiogram. 10. Discussed with RN and we will follow along with you. THOMAS CORTES MD DR: YAMILET/nts JOB#: [id number] / [id number]
--- NOTE | 2019-03-08 11:42 | PDOC ---
PROGRESS NOTES Chief Complaint Chief Complaint Acute hypoxia - COPD exacerbation plus apparent CHF exacerbation, COPD - O2 dependent, 4 LNC Depression - Diabetes-Type II - Hypertensive urgency - Chronic back pain and chronic knee pain - Pulmonary congestion - Worst headache of life - History of Present Illness History of Present Illness SOA, headache Chest x-ray chronic lung changes I provide copy Blood pressure on the high side, heart rate is borderline bradycardia ABG pH 7.48, PCO2 34, O2 62 Plan: counseled on smoking, she claims she does not smoke anymore WBC 12.8 Continue breathing treatments, pulmo consulted HYdralazine prn PT/OT Needs to lose weight echo might need to change lisinopril to ARB sec to cough See orders Vitals Vitals Vital Signs Date Time Temp Pulse Resp B/P (MAP) Pulse Ox O2 Delivery O2 Flow Rate FiO2 03/08/19 11:26 96 Nasal Cannula 4.0 03/08/19 08:53 75 150/72 03/08/19 07:00 98.1 20 98.1 Physical Exam General: Alert, Oriented X3, Cooperative, No acute distress Abdomen: Normal bowel sounds, Soft, No tenderness, No hepatosplenomegaly, No masses Extremities: No clubbing, No cyanosis, No edema, Normal pulses, No tenderness/swelling Skin: No rashes, No breakdown, No significant lesion Labs LABS Laboratory Tests Test 03/07/19 14:05 03/07/19 14:30 03/07/19 18:40 03/07/19 20:27 O2 Saturation 93 % (92-99) Arterial Blood pH 7.48 (7.35-7.45) Arterial Blood pCO2 at Patient Temp 34 mmHg (35-46) Arterial Blood pO2 at Patient Temp 62 mmHg (65-108) Arterial Blood HCO3 24 mmol/L (21-28) Arterial Blood Base Excess 1 mmol/L (-3-3) Oxyhemoglobin 92.0 % Methemoglobin 0.4 % (0.0-1.9) Carbon Monoxide, Quantitative 0.1 % (0.0-1.9) FiO2 4 lpm nc White Blood Count 12.8 x10^3/uL (4.0-11.0) Red Blood Count 4.67 x10^6/uL (3.50-5.40) Hemoglobin 14.2 g/dL (12.0-15.5) Hematocrit 42.6 % (36.0-47.0) Mean Corpuscular Volume 91 fL (79-100) Mean Corpuscular Hemoglobin 30 pg (25-35) Mean Corpuscular Hemoglobin Concent 33 g/dL (31-37) Red Cell Distribution Width 14.0 % (11.5-14.5) Platelet Count 206 x10^3/uL (140-400) Neutrophils (%) (Auto) 81 % (31-73) Lymphocytes (%) (Auto) 11 % (24-48) Monocytes (%) (Auto) 6 % (0-9) Eosinophils (%) (Auto) 1 % (0-3) Basophils (%) (Auto) 0 % (0-3) Neutrophils # (Auto) 10.4 x10^3/uL (1.8-7.7) Lymphocytes # (Auto) 1.4 x10^3/uL (1.0-4.8) Monocytes # (Auto) 0.7 x10^3/uL (0.0-1.1) Eosinophils # (Auto) 0.1 x10^3/uL (0.0-0.7) Basophils # (Auto) 0.0 x10^3/uL (0.0-0.2) Sodium Level 140 mmol/L (136-145) Potassium Level 4.0 mmol/L (3.5-5.1) Chloride Level 101 mmol/L (98-107) Carbon Dioxide Level 28 mmol/L (21-32) Anion Gap 11 (6-14) Blood Urea Nitrogen 12 mg/dL (7-20) Creatinine 1.0 mg/dL (0.6-1.0) Estimated GFR (Cockcroft-Gault) 55.1 BUN/Creatinine Ratio 12 (6-20) Glucose Level 130 mg/dL (70-99) Lactic Acid Level 3.1 mmol/L (0.4-2.0) Calcium Level 9.3 mg/dL (8.5-10.1) Magnesium Level 1.6 mg/dL (1.8-2.4) Total Bilirubin 0.9 mg/dL (0.2-1.0) Aspartate Amino Transf (AST/SGOT) 28 U/L (15-37) Alanine Aminotransferase (ALT/SGPT) 29 U/L (14-59) Alkaline Phosphatase 101 U/L (46-116) Troponin I Quantitative 0.017 ng/mL (0.000-0.055) OA-Oud-U-Type Natriuretic Peptide 895 pg/mL (0-124) Total Protein 7.1 g/dL (6.4-8.2) Albumin 3.2 g/dL (3.4-5.0) Albumin/Globulin Ratio 0.8 (1.0-1.7) Lipase 35 U/L (73-393) Glucose (Fingerstick) 134 mg/dL (70-99) 142 mg/dL (70-99) Test 03/08/19 07:36 03/08/19 08:05 Glucose (Fingerstick) 146 mg/dL (70-99) White Blood Count 9.1 x10^3/uL (4.0-11.0) Red Blood Count 4.15 x10^6/uL (3.50-5.40) Hemoglobin 12.9 g/dL (12.0-15.5) Hematocrit 37.5 % (36.0-47.0) Mean Corpuscular Volume 90 fL (79-100) Mean Corpuscular Hemoglobin 31 pg (25-35) Mean Corpuscular Hemoglobin Concent 35 g/dL (31-37) Red Cell Distribution Width 14.3 % (11.5-14.5) Platelet Count 179 x10^3/uL (140-400) Neutrophils (%) (Auto) 87 % (31-73) Lymphocytes (%) (Auto) 11 % (24-48) Monocytes (%) (Auto) 2 % (0-9) Eosinophils (%) (Auto) 0 % (0-3) Basophils (%) (Auto) 0 % (0-3) Neutrophils # (Auto) 7.8 x10^3/uL (1.8-7.7) Lymphocytes # (Auto) 1.0 x10^3/uL (1.0-4.8) Monocytes # (Auto) 0.2 x10^3/uL (0.0-1.1) Eosinophils # (Auto) 0.0 x10^3/uL (0.0-0.7) Basophils # (Auto) 0.0 x10^3/uL (0.0-0.2) Segmented Neutrophils % 89 % (35-66) Lymphocytes % 9 % (24-48) Monocytes % 2 % (0-10) Platelet Estimate Adequate (ADEQUATE) Sodium Level 137 mmol/L (136-145) Potassium Level 3.8 mmol/L (3.5-5.1) Chloride Level 103 mmol/L (98-107) Carbon Dioxide Level 27 mmol/L (21-32) Anion Gap 7 (6-14) Blood Urea Nitrogen 12 mg/dL (7-20) Creatinine 0.9 mg/dL (0.6-1.0) Estimated GFR (Cockcroft-Gault) 62.3 Glucose Level 165 mg/dL (70-99) Lactic Acid Level 1.4 mmol/L (0.4-2.0) Calcium Level 8.4 mg/dL (8.5-10.1) Review of Systems Review of Systems SOA, weak, fatigued, tired, the rest of ROS 14 point she denies Assessment and Plan Assessmemt and Plan Problems Medical Problems: (1) CHF exacerbation Status: Acute (2) Chronic back pain Status: Chronic (3) Chronic knee pain Status: Chronic (4) COPD (chronic obstructive pulmonary disease) Status: Acute (5) COPD exacerbation Status: Acute (6) Depression Status: Chronic (7) Dyspnea Status: Acute (8) Headache Status: Acute (9) Hypertensive urgency Status: Acute (10) Pulmonary congestion Status: Acute Comment Review of Relevant I have reviewed the following items sarath (where applicable) has been applied. Labs Laboratory Tests Test 03/07/19 14:05 03/07/19 14:30 03/07/19 18:40 03/07/19 20:27 O2 Saturation 93 % (92-99) Arterial Blood pH 7.48 (7.35-7.45) Arterial Blood pCO2 at Patient Temp 34 mmHg (35-46) Arterial Blood pO2 at Patient Temp 62 mmHg (65-108) Arterial Blood HCO3 24 mmol/L (21-28) Arterial Blood Base Excess 1 mmol/L (-3-3) Oxyhemoglobin 92.0 % Methemoglobin 0.4 % (0.0-1.9) Carbon Monoxide, Quantitative 0.1 % (0.0-1.9) FiO2 4 lpm nc White Blood Count 12.8 x10^3/uL (4.0-11.0) Red Blood Count 4.67 x10^6/uL (3.50-5.40) Hemoglobin 14.2 g/dL (12.0-15.5) Hematocrit 42.6 % (36.0-47.0) Mean Corpuscular Volume 91 fL (79-100) Mean Corpuscular Hemoglobin 30 pg (25-35) Mean Corpuscular Hemoglobin Concent 33 g/dL (31-37) Red Cell Distribution Width 14.0 % (11.5-14.5) Platelet Count 206 x10^3/uL (140-400) Neutrophils (%) (Auto) 81 % (31-73) Lymphocytes (%) (Auto) 11 % (24-48) Monocytes (%) (Auto) 6 % (0-9) Eosinophils (%) (Auto) 1 % (0-3) Basophils (%) (Auto) 0 % (0-3) Neutrophils # (Auto) 10.4 x10^3/uL (1.8-7.7) Lymphocytes # (Auto) 1.4 x10^3/uL (1.0-4.8) Monocytes # (Auto) 0.7 x10^3/uL (0.0-1.1) Eosinophils # (Auto) 0.1 x10^3/uL (0.0-0.7) Basophils # (Auto) 0.0 x10^3/uL (0.0-0.2) Sodium Level 140 mmol/L (136-145) Potassium Level 4.0 mmol/L (3.5-5.1) Chloride Level 101 mmol/L (98-107) Carbon Dioxide Level 28 mmol/L (21-32) Anion Gap 11 (6-14) Blood Urea Nitrogen 12 mg/dL (7-20) Creatinine 1.0 mg/dL (0.6-1.0) Estimated GFR (Cockcroft-Gault) 55.1 BUN/Creatinine Ratio 12 (6-20) Glucose Level 130 mg/dL (70-99) Lactic Acid Level 3.1 mmol/L (0.4-2.0) Calcium Level 9.3 mg/dL (8.5-10.1) Magnesium Level 1.6 mg/dL (1.8-2.4) Total Bilirubin 0.9 mg/dL (0.2-1.0) Aspartate Amino Transf (AST/SGOT) 28 U/L (15-37) Alanine Aminotransferase (ALT/SGPT) 29 U/L (14-59) Alkaline Phosphatase 101 U/L (46-116) Troponin I Quantitative 0.017 ng/mL (0.000-0.055) WY-Cjv-Q-Type Natriuretic Peptide 895 pg/mL (0-124) Total Protein 7.1 g/dL (6.4-8.2) Albumin 3.2 g/dL (3.4-5.0) Albumin/Globulin Ratio 0.8 (1.0-1.7) Lipase 35 U/L (73-393) Glucose (Fingerstick) 134 mg/dL (70-99) 142 mg/dL (70-99) Test 03/08/19 07:36 03/08/19 08:05 Glucose (Fingerstick) 146 mg/dL (70-99) White Blood Count 9.1 x10^3/uL (4.0-11.0) Red Blood Count 4.15 x10^6/uL (3.50-5.40) Hemoglobin 12.9 g/dL (12.0-15.5) Hematocrit 37.5 % (36.0-47.0) Mean Corpuscular Volume 90 fL (79-100) Mean Corpuscular Hemoglobin 31 pg (25-35) Mean Corpuscular Hemoglobin Concent 35 g/dL (31-37) Red Cell Distribution Width 14.3 % (11.5-14.5) Platelet Count 179 x10^3/uL (140-400) Neutrophils (%) (Auto) 87 % (31-73) Lymphocytes (%) (Auto) 11 % (24-48) Monocytes (%) (Auto) 2 % (0-9) Eosinophils (%) (Auto) 0 % (0-3) Basophils (%) (Auto) 0 % (0-3) Neutrophils # (Auto) 7.8 x10^3/uL (1.8-7.7) Lymphocytes # (Auto) 1.0 x10^3/uL (1.0-4.8) Monocytes # (Auto) 0.2 x10^3/uL (0.0-1.1) Eosinophils # (Auto) 0.0 x10^3/uL (0.0-0.7) Basophils # (Auto) 0.0 x10^3/uL (0.0-0.2) Segmented Neutrophils % 89 % (35-66) Lymphocytes % 9 % (24-48) Monocytes % 2 % (0-10) Platelet Estimate Adequate (ADEQUATE) Sodium Level 137 mmol/L (136-145) Potassium Level 3.8 mmol/L (3.5-5.1) Chloride Level 103 mmol/L (98-107) Carbon Dioxide Level 27 mmol/L (21-32) Anion Gap 7 (6-14) Blood Urea Nitrogen 12 mg/dL (7-20) Creatinine 0.9 mg/dL (0.6-1.0) Estimated GFR (Cockcroft-Gault) 62.3 Glucose Level 165 mg/dL (70-99) Lactic Acid Level 1.4 mmol/L (0.4-2.0) Calcium Level 8.4 mg/dL (8.5-10.1) Laboratory Tests Test 03/07/19 14:05 03/07/19 14:30 03/07/19 18:40 03/07/19 20:27 O2 Saturation 93 % (92-99) Arterial Blood pH 7.48 (7.35-7.45) Arterial Blood pCO2 at Patient Temp 34 mmHg (35-46) Arterial Blood pO2 at Patient Temp 62 mmHg (65-108) Arterial Blood HCO3 24 mmol/L (21-28) Arterial Blood Base Excess 1 mmol/L (-3-3) Oxyhemoglobin 92.0 % Methemoglobin 0.4 % (0.0-1.9) Carbon Monoxide, Quantitative 0.1 % (0.0-1.9) FiO2 4 lpm nc White Blood Count 12.8 x10^3/uL (4.0-11.0) Red Blood Count 4.67 x10^6/uL (3.50-5.40) Hemoglobin 14.2 g/dL (12.0-15.5) Hematocrit 42.6 % (36.0-47.0) Mean Corpuscular Volume 91 fL (79-100) Mean Corpuscular Hemoglobin 30 pg (25-35) Mean Corpuscular Hemoglobin Concent 33 g/dL (31-37) Red Cell Distribution Width 14.0 % (11.5-14.5) Platelet Count 206 x10^3/uL (140-400) Neutrophils (%) (Auto) 81 % (31-73) Lymphocytes (%) (Auto) 11 % (24-48) Monocytes (%) (Auto) 6 % (0-9) Eosinophils (%) (Auto) 1 % (0-3) Basophils (%) (Auto) 0 % (0-3) Neutrophils # (Auto) 10.4 x10^3/uL (1.8-7.7) Lymphocytes # (Auto) 1.4 x10^3/uL (1.0-4.8) Monocytes # (Auto) 0.7 x10^3/uL (0.0-1.1) Eosinophils # (Auto) 0.1 x10^3/uL (0.0-0.7) Basophils # (Auto) 0.0 x10^3/uL (0.0-0.2) Sodium Level 140 mmol/L (136-145) Potassium Level 4.0 mmol/L (3.5-5.1) Chloride Level 101 mmol/L (98-107) Carbon Dioxide Level 28 mmol/L (21-32) Anion Gap 11 (6-14) Blood Urea Nitrogen 12 mg/dL (7-20) Creatinine 1.0 mg/dL (0.6-1.0) Estimated GFR (Cockcroft-Gault) 55.1 BUN/Creatinine Ratio 12 (6-20) Glucose Level 130 mg/dL (70-99) Lactic Acid Level 3.1 mmol/L (0.4-2.0) Calcium Level 9.3 mg/dL (8.5-10.1) Magnesium Level 1.6 mg/dL (1.8-2.4) Total Bilirubin 0.9 mg/dL (0.2-1.0) Aspartate Amino Transf (AST/SGOT) 28 U/L (15-37) Alanine Aminotransferase (ALT/SGPT) 29 U/L (14-59) Alkaline Phosphatase 101 U/L (46-116) Troponin I Quantitative 0.017 ng/mL (0.000-0.055) NZ-Pko-U-Type Natriuretic Peptide 895 pg/mL (0-124) Total Protein 7.1 g/dL (6.4-8.2) Albumin 3.2 g/dL (3.4-5.0) Albumin/Globulin Ratio 0.8 (1.0-1.7) Lipase 35 U/L (73-393) Glucose (Fingerstick) 134 mg/dL (70-99) 142 mg/dL (70-99) Test 03/08/19 07:36 03/08/19 08:05 Glucose (Fingerstick) 146 mg/dL (70-99) White Blood Count 9.1 x10^3/uL (4.0-11.0) Red Blood Count 4.15 x10^6/uL (3.50-5.40) Hemoglobin 12.9 g/dL (12.0-15.5) Hematocrit 37.5 % (36.0-47.0) Mean Corpuscular Volume 90 fL (79-100) Mean Corpuscular Hemoglobin 31 pg (25-35) Mean Corpuscular Hemoglobin Concent 35 g/dL (31-37) Red Cell Distribution Width 14.3 % (11.5-14.5) Platelet Count 179 x10^3/uL (140-400) Neutrophils (%) (Auto) 87 % (31-73) Lymphocytes (%) (Auto) 11 % (24-48) Monocytes (%) (Auto) 2 % (0-9) Eosinophils (%) (Auto) 0 % (0-3) Basophils (%) (Auto) 0 % (0-3) Neutrophils # (Auto) 7.8 x10^3/uL (1.8-7.7) Lymphocytes # (Auto) 1.0 x10^3/uL (1.0-4.8) Monocytes # (Auto) 0.2 x10^3/uL (0.0-1.1) Eosinophils # (Auto) 0.0 x10^3/uL (0.0-0.7) Basophils # (Auto) 0.0 x10^3/uL (0.0-0.2) Segmented Neutrophils % 89 % (35-66) Lymphocytes % 9 % (24-48) Monocytes % 2 % (0-10) Platelet Estimate Adequate (ADEQUATE) Sodium Level 137 mmol/L (136-145) Potassium Level 3.8 mmol/L (3.5-5.1) Chloride Level 103 mmol/L (98-107) Carbon Dioxide Level 27 mmol/L (21-32) Anion Gap 7 (6-14) Blood Urea Nitrogen 12 mg/dL (7-20) Creatinine 0.9 mg/dL (0.6-1.0) Estimated GFR (Cockcroft-Gault) 62.3 Glucose Level 165 mg/dL (70-99) Lactic Acid Level 1.4 mmol/L (0.4-2.0) Calcium Level 8.4 mg/dL (8.5-10.1) Medications Current Medications Albuterol/ Ipratropium (Duoneb) 3 ml 1X ONCE NEB Last administered on 03/07/19 14:06; Start 03/07/19 at 14:00; Stop 03/07/19 at 14:01; Status DC Albuterol Sulfate (Ventolin Neb Soln) 2.5 mg PRN Q2HRS PRN INH shortness of breath Last administered on 03/07/19 17:17; Start 03/07/19 at 17:00 Azelastine HCl (Astelin) 2 spray BID NS Last administered on 03/08/19 08:51; Start 03/07/19 at 21:00 Cyclobenzaprine HCl (Flexeril) 10 mg TID PO Last administered on 03/08/19 08:52; Start 03/07/19 at 21:00 Folic Acid (Folic Acid) 1 mg DAILY PO Last administered on 03/08/19 08:53; Start 03/08/19 at 09:00 Gabapentin (Neurontin) 300 mg TID PO Last administered on 03/08/19 08:53; Start 03/07/19 at 21:00 Lisinopril (Prinivil) 40 mg DAILY PO Last administered on 03/08/19 08:53; Start 03/08/19 at 09:00 Montelukast Sodium (Singulair) 10 mg DAILY PO Last administered on 03/08/19 08:53; Start 03/08/19 at 09:00 Pantoprazole Sodium (Protonix) 40 mg DAILYAC PO Last administered on 03/08/19 08:52; Start 03/08/19 at 07:30 Potassium Chloride (Klor-Con) 20 meq [id number] PO Last administered on 03/08/19 08:52; Start 03/08/19 at 08:00 Albuterol/ Ipratropium (Duoneb) 3 ml RTQID NEB Last administered on 03/08/19 11:26; Start 03/07/19 at 20:00 Doxycycline Hyclate 100 mg/ Dextrose 100 ml @ 50 mls/hr Q12HR IV Last administered on 03/08/19 08:54; Start 03/07/19 at 21:00 Budesonide (Pulmicort) 0.5 mg RTBID NEB Last administered on 03/08/19 07:14; Start 03/07/19 at 20:00 Labetalol HCl (Normodyne Iv Push) 10 mg PRN Q2HR PRN IVP HYPERTENSION; Start 03/07/19 at 17:00 Methylprednisolone Sodium Succinate (SOLU-Medrol 40MG VIAL) 40 mg Q8HRS IV Last administered on 03/08/19 06:54; Start 03/07/19 at 20:00 Enoxaparin Sodium (Lovenox 40mg Syringe) 40 mg Q24H SQ Last administered on 21:27; Start 03/07/19 at 21:00 Magnesium Sulfate/ Dextrose 100 ml @ 25 mls/hr 1X ONCE IV Last administered on 03/07/19 17:59; Start 03/07/19 at 18:00; Stop 03/07/19 at 21:59; Status DC Epinephrine HCl (Adrenalin) 0.3 mg PRN Q5MIN PRN SQ ALLERGIC REACTION; Start 03/07/19 at 18:15 Diphenhydramine HCl (Benadryl) 25 mg PRN Q6HRS PRN IV ITCHING, ALLERGIC REACTION; Start 03/07/19 at 18:15 Oxycodone/ Acetaminophen (Percocet 5/325) 1 tab PRN Q6HRS PRN PO PAIN Last administered on 03/08/19 11:11; Start 03/07/19 at 20:00 Fluoxetine HCl (PROzac) 40 mg DAILY PO Last administered on 03/08/19 08:53; Start 03/08/19 at 09:00 Furosemide (Lasix) 40 mg DAILY IVP Last administered on 03/08/19 08:54; Start 03/08/19 at 09:00 Nicotine (Nicoderm Cq 21mg) 1 patch PRN DAILY PRN TD SMOKING CESSATION; Start 03/08/19 at 08:30 Ondansetron HCl (Zofran) 4 mg PRN Q6HRS PRN IV NAUSEA/VOMITING; Start 03/08/19 at 08:30 Benzonatate (Tessalon Perle) 100 mg [id number] PO Last administered on 03/08/19at 08:57; Start 03/08/19 at 09:00 Active Scripts Active Reported Celebrex (Celecoxib) 200 Mg Capsule 200 Mg PO BID PRN 30 Days Pantoprazole Sodium 40 Mg Tablet.dr 1 Tab PO DAILY Advair 500-50 Diskus (Fluticasone/Salmeterol) 1 Each Disk.w.dev 1 Puff IH BID Dimenhydrinate 50 Mg Tablet 50 Mg PO Colace Clear (Docusate Sodium) 50 Mg Capsule 50 Mg PO Zofran (Ondansetron Hcl) 8 Mg Tablet 1 Tab PO Q8HRS Gabapentin 300 Mg Capsule 1 Cap PO TID Prozac (Fluoxetine Hcl) 40 Mg Capsule 1 Cap PO DAILY Oxycontin (Oxycodone Hcl) 10 Mg Tab.er.12h 1 Tab PO BID Lisinopril 40 Mg Tablet 1 Tab PO DAILY Pravastatin Sodium 80 Mg Tablet 1 Tab PO DAILY Folic Acid 1 Mg Tablet 1 Tab PO DAILY Proair Hfa Inhaler (Albuterol Sulfate) 8.5 Gm Hfa.aer.ad 2 Puff IH PRN Q4-6HRS Cyclobenzaprine Hcl 10 Mg Tablet 1 Tab PO TID Montelukast Sodium Tablet (Montelukast Sodium) 10 Mg Tablet 1 Tab PO DAILY K-Tab ER (Potassium Chloride) 20 Meq Tablet.er 20 Meq PO DAILY Azelastine Hcl 137 Mcg/0.137 Ml [place].pump 2 [place] NS BID [atarax] Flonase Allergy Relief (Fluticasone Propionate) 9.9 Ml [place].susp 9.9 Ml NS Vitals/I & O Vital Sign - Last 24 Hours 03/07/19 03/07/19 03/07/19 03/07/19 13:30 14:08 14:38 15:13 Temp 98.9 98.9 Pulse 62 60 66 Resp 26 B/P (MAP) 204/94 (130) 228/92 (137) 212/113 (146) Pulse Ox 94 93 96 96 O2 Delivery Nasal Cannula Nasal Cannula Nasal Cannula Nasal Cannula O2 Flow Rate 4.0 4.0 4.0 4.0 03/07/19 03/07/19 03/07/19 03/07/19 16:05 16:50 17:18 17:33 Temp 98.6 98.6 Pulse 59 74 Resp 18 B/P (MAP) 201/88 (125) 167/82 (110) Pulse Ox 95 96 O2 Delivery Nasal Cannula Nasal Cannula Nasal Cannula Nasal Cannula O2 Flow Rate 4.0 4.0 4.0 90.0 03/07/19 03/07/19 03/07/19 03/07/19 19:20 19:56 20:00 21:27 Temp 98.8 98.8 Pulse 58 Resp 22 B/P (MAP) 194/86 (122) Pulse Ox 95 95 O2 Delivery Nasal Cannula Nasal Cannula Nasal Cannula Nasal Cannula O2 Flow Rate 4.0 4.0 4.0 4.0 03/07/19 03/08/19 03/08/19 03/08/19 21:45 03:25 04:19 05:19 Temp 98.1 98.7 98.1 98.7 Pulse 57 Resp 24 22 B/P (MAP) 154/74 (100) 152/71 (98) Pulse Ox 96 94 O2 Delivery Nasal Cannula Nasal Cannula Nasal Cannula Nasal Cannula O2 Flow Rate 4.0 4.0 4.0 4.0 03/08/19 03/08/19 03/08/19 03/08/19 07:00 07:14 08:00 08:53 Temp 98.1 98.1 Pulse 75 75 Resp 20 B/P (MAP) 150/72 (98) 150/72 Pulse Ox 94 96 O2 Delivery Nasal Cannula Nasal Cannula Nasal Cannula O2 Flow Rate 4.0 4.0 03/08/19 03/08/19 11:11 11:26 Pulse Ox 96 O2 Delivery Nasal Cannula Nasal Cannula O2 Flow Rate 4.0 4.0 Intake and Output 03/07/19 03/07/19 03/08/19 14:59 22:59 06:59 Intake Total 100 ml 300 ml Output Total 150 ml 1150 ml Balance -50 ml -850 ml CHIP DELUCA MD Mar 08, 2019 11:42
[2019-03-08] MEDS ORDERED: EMPA10TA PO (12:05)
[2019-03-08 15:00] VITALS: BP 148/61
--- NOTE | 2019-03-08 17:56 | EKG ---
[facility] [address] [place] [address] Test Date: 2019-03-08 Test Time: 17:46:58 Pat Name: CHERY MITCHELL Department: Room: 656 1 Gender: F [employer] Down Hel[employer]: PHIL : 1950 Requested By: CHIP DELUCA Order Number: [id number] Reading MD: Measurements Intervals [place] Rate: 61 P: 42 AK: 178 QRS: -23 QRSD: 94 T: 26 QT: 444 QTc: 448 Interpretive Statements SINUS RHYTHM LEFTWARD AXIS QRS(T) CONTOUR ABNORMALITY CONSISTENT WITH SEPTAL INFARCT AGE UNDETERMINED ABNORMAL ECG RI6.01 Compared to ECG 01/03/2019 14:46:55 Left-axis deviation now present Myocardial infarct finding now present Left ventricular hypertrophy no longer present
[2019-03-08 19:10] VITALS: BP 144/58
[2019-03-08] MEDS: LACTOBACILLUS RHAMNOSUS GG 1 CAPSULE. PO SCH (21:12)
[2019-03-08] MEDS: ENOXAPARIN 40 MG/0.4 ML SYRINGE. SQ SCH (21:13)
[2019-03-08 23:10] VITALS: BP 135/65
[2019-03-09 03:10] VITALS: BP 161/71
[2019-03-09] MEDS: methylPREDNISolone SOD SUCC PF 40 MG/ML VIAL. IV SCH ×3 (06:33→21:32)
[2019-03-09] MEDS: oxyCODONE/APAP 5/325 1 TAB TABLET PO PRN ×2 (06:39→12:39)
[2019-03-09] MEDS: IPRATRPIUM/ALBUTEROL 0.5/2.5MG 3 ML NEBU. NEB SCH ×4 (07:02→19:24)
[2019-03-09] MEDS: BUDESONIDE 0.5 MG/2 ML NEBU. NEB SCH ×2 (07:02→19:24)
[2019-03-09 07:25] VITALS: BP 147/56
--- NOTE | 2019-03-09 08:42 | NUR ---
Patient left the floor at approx 0830 for Echo.
[2019-03-09] MEDS: LISINOPRIL 20 MG TABLET PO SCH (09:00)
--- NOTE | 2019-03-09 10:20 | PDOC ---
PROGRESS NOTES Chief Complaint Chief Complaint impression Acute hypoxia with resp failure- COPD exacerbation plus apparent CHF exacerbation, COPD - O2 dependent, 4 LNC The left ventricular systolic function is normal and the ejection fraction is within normal range. The Ejection Fraction is 50-55%. Wall motion not well visualized. Doppler and Color Flow revealed trace tricuspid regurgitation with an estimated PAP of 54 mmHg. c/w pulm hypertension Depression - Diabetes-Type II - Hypertensive urgency - Chronic back pain and chronic knee pain - Pulmonary congestion - improving pulmonary edema. Stable cardiomegaly. 03/09 Worst headache of life -No evidence for acute intracranial process.BY CT HEAD likely lisinopril-induced cough. d/c lisinopril, begin cozaar 26 min pt exam, chart review, > 50% of time spent with exam, chart review, pt care coordination History of Present Illness History of Present Illness SOA, headache Chest x-ray chronic lung changes I provide copy Blood pressure on the high side, heart rate is borderline bradycardia ABG pH 7.48, PCO2 34, O2 62 Plan: counseled on smoking, she claims she does not smoke anymore WBC 12.8 Continue breathing treatments, pulmo consulted HYdralazine prn PT/OT Needs to lose weight echo might need to change lisinopril to ARB sec to cough See orders Vitals Vitals Vital Signs Date Time Temp Pulse Resp B/P (MAP) Pulse Ox O2 Delivery O2 Flow Rate FiO2 03/09/19 07:25 98.2 67 22 147/56 (86) 94 Nasal Cannula 4.0 98.2 Physical Exam General: Alert, Oriented X3, Cooperative, No acute distress Heart: Regular rate Lungs: Other (dimished BS) Abdomen: Normal bowel sounds, Soft, No tenderness, No hepatosplenomegaly, No masses Extremities: No clubbing, No cyanosis, No edema, Normal pulses, No tenderness/swelling Skin: No rashes, No breakdown, No significant lesion Labs LABS FINDINGS: There is no evidence of hemorrhage, mass or extra-axial fluid collection. Miller-white differentiation is maintained with no evidence of edema. There is no mass effect or shift of the intracranial structures. The ventricles, basilar cisterns and cortical sulci are normal in size and configuration for the patients stated age. The cerebellum and brainstem are unremarkable. The calvarium demonstrates no evidence of fracture or focal lesion. There is normal aeration of the visualized paranasal sinuses and mastoid air cells. The visualized portions of the orbits are normal. IMPRESSION: No evidence for acute intracranial process. Electronically signed by: Real Mitchell MD (03/08/2019 8:25 AM) [facility] Pulmonary Valve PV Peak Velocity 112.4cm/s PV Peak Grad. 5mmHg Tricuspid Valve TR P. Velocity 267cm/s RAP ESTIMATE 15mmHg TR Peak Gr. 39mmHg RVSP 54mmHg Pulmonary Vein S1 Velocity 81.4cm/s D2 Velocity 74.7cm/s PVa duration 111msec LEFT VENTRICLE The left ventricle is normal size. There is moderate concentric left ventricular hypertrophy. The left ventricular systolic function is normal and the ejection fraction is within normal range. The Ejection Fraction is 50-55%. Wall motion not well visualized. Transmitral Doppler flow pattern is Grade II-pseudonormal filling dynamics. RIGHT VENTRICLE The right ventricle is normal size. There is normal right ventricular wall thickness. The right ventricular systolic function is normal. ATRIA The left atrium is mildly dilated. The right atrium size is normal. The interatrial septum is intact with no evidence for an atrial septal defect or patent foramen ovale as noted on 2-D or Doppler imaging. AORTIC VALVE The aortic valve is not well visualized. Doppler and Color Flow revealed trace to mild aortic regurgitation. There is no significant aortic valvular stenosis. MITRAL VALVE The mitral valve is normal in structure and function. There is no evidence of mitral valve prolapse. There is no mitral valve stenosis. Doppler and Color-flow revealed mild mitral regurgitation. TRICUSPID VALVE The tricuspid valve is not well visualized. Doppler and Color Flow revealed trace tricuspid regurgitation with an estimated PAP of 54 mmHg. There is no tricuspid valve stenosis. PULMONIC VALVE The pulmonic valve is not well visualized. Doppler and Color Flow revealed no pulmonic valvular regurgitation. There is no pulmonic valvular stenosis. GREAT VESSELS The aortic root is normal in size. The IVC is dilated and collapses <50% with inspiration. PERICARDIAL EFFUSION There is no evidence of significant pericardial effusion. Critical Notification Critical Value: No <Conclusion> The left ventricular systolic function is normal and the ejection fraction is within normal range. The Ejection Fraction is 50-55%. Wall motion not well visualized. Doppler and Color Flow revealed trace tricuspid regurgitation with an estimated PAP of 54 mmHg. The IVC is dilated and collapses <50% with inspiration. Signed by : Roma Tiwari, Electronically Approved : 03/09/2019 11:23:26 DICTATED and SIGNED BY: ROMA TIWARI MD DATE: 03/09/19 1123 PATIENT: CHERY MITCHELL ACCOUNT: [id number] : 1950 LOCATION: [facility] AGE: 68 SEX: F EXAM STATUS: ADM IN ORD. PHYSICIAN: THOMAS CORTES MD REASON: CHF PROCEDURE: PORTABLE CHEST 1V EXAM: AP View of the chest DATE: 03/09/2019 8:00 AM INDICATION: CHF, dyspnea COMPARISON: 03/05/2019, 01/03/2019 FINDINGS: Mild cardiomegaly. Aorta is mildly tortuous Mediastinal and hilar contours are stable. Improved aeration of the lungs bilaterally. No pleural effusion or pneumothorax. IMPRESSION: Improved aeration with less conspicuous interstitial opacities suggesting improving pulmonary edema. Stable cardiomegaly. Laboratory Tests Test 03/08/19 11:57 03/08/19 17:50 03/08/19 20:35 03/09/19 00:30 Glucose (Fingerstick) 225 mg/dL (70-99) 209 mg/dL (70-99) Troponin I Quantitative < 0.017 ng/mL (0.000-0.055) < 0.017 ng/mL (0.000-0.055) Test 03/09/19 06:08 03/09/19 07:36 Troponin I Quantitative < 0.017 ng/mL (0.000-0.055) Glucose (Fingerstick) 145 mg/dL (70-99) Assessment and Plan Assessmemt and Plan Problems Medical Problems: (1) CHF exacerbation Status: Acute (2) Chronic back pain Status: Chronic (3) Chronic knee pain Status: Chronic (4) COPD (chronic obstructive pulmonary disease) Status: Acute (5) COPD exacerbation Status: Acute (6) Depression Status: Chronic (7) Dyspnea Status: Acute (8) Headache Status: Acute (9) Hypertensive urgency Status: Acute (10) Pulmonary congestion Status: Acute Comment Review of Relevant I have reviewed the following items sarath (where applicable) has been applied. Labs Laboratory Tests Test 03/07/19 14:05 03/07/19 14:30 03/07/19 18:40 03/07/19 20:27 O2 Saturation 93 % (92-99) Arterial Blood pH 7.48 (7.35-7.45) Arterial Blood pCO2 at Patient Temp 34 mmHg (35-46) Arterial Blood pO2 at Patient Temp 62 mmHg (65-108) Arterial Blood HCO3 24 mmol/L (21-28) Arterial Blood Base Excess 1 mmol/L (-3-3) Oxyhemoglobin 92.0 % Methemoglobin 0.4 % (0.0-1.9) Carbon Monoxide, Quantitative 0.1 % (0.0-1.9) FiO2 4 lpm nc White Blood Count 12.8 x10^3/uL (4.0-11.0) Red Blood Count 4.67 x10^6/uL (3.50-5.40) Hemoglobin 14.2 g/dL (12.0-15.5) Hematocrit 42.6 % (36.0-47.0) Mean Corpuscular Volume 91 fL (79-100) Mean Corpuscular Hemoglobin 30 pg (25-35) Mean Corpuscular Hemoglobin Concent 33 g/dL (31-37) Red Cell Distribution Width 14.0 % (11.5-14.5) Platelet Count 206 x10^3/uL (140-400) Neutrophils (%) (Auto) 81 % (31-73) Lymphocytes (%) (Auto) 11 % (24-48) Monocytes (%) (Auto) 6 % (0-9) Eosinophils (%) (Auto) 1 % (0-3) Basophils (%) (Auto) 0 % (0-3) Neutrophils # (Auto) 10.4 x10^3/uL (1.8-7.7) Lymphocytes # (Auto) 1.4 x10^3/uL (1.0-4.8) Monocytes # (Auto) 0.7 x10^3/uL (0.0-1.1) Eosinophils # (Auto) 0.1 x10^3/uL (0.0-0.7) Basophils # (Auto) 0.0 x10^3/uL (0.0-0.2) Sodium Level 140 mmol/L (136-145) Potassium Level 4.0 mmol/L (3.5-5.1) Chloride Level 101 mmol/L (98-107) Carbon Dioxide Level 28 mmol/L (21-32) Anion Gap 11 (6-14) Blood Urea Nitrogen 12 mg/dL (7-20) Creatinine 1.0 mg/dL (0.6-1.0) Estimated GFR (Cockcroft-Gault) 55.1 BUN/Creatinine Ratio 12 (6-20) Glucose Level 130 mg/dL (70-99) Lactic Acid Level 3.1 mmol/L (0.4-2.0) Calcium Level 9.3 mg/dL (8.5-10.1) Magnesium Level 1.6 mg/dL (1.8-2.4) Total Bilirubin 0.9 mg/dL (0.2-1.0) Aspartate Amino Transf (AST/SGOT) 28 U/L (15-37) Alanine Aminotransferase (ALT/SGPT) 29 U/L (14-59) Alkaline Phosphatase 101 U/L (46-116) Troponin I Quantitative 0.017 ng/mL (0.000-0.055) BF-Dri-S-Type Natriuretic Peptide 895 pg/mL (0-124) Total Protein 7.1 g/dL (6.4-8.2) Albumin 3.2 g/dL (3.4-5.0) Albumin/Globulin Ratio 0.8 (1.0-1.7) Lipase 35 U/L (73-393) Glucose (Fingerstick) 134 mg/dL (70-99) 142 mg/dL (70-99) Test 03/08/19 07:36 03/08/19 08:05 03/08/19 11:57 03/08/19 17:50 Glucose (Fingerstick) 146 mg/dL (70-99) 225 mg/dL (70-99) White Blood Count 9.1 x10^3/uL (4.0-11.0) Red Blood Count 4.15 x10^6/uL (3.50-5.40) Hemoglobin 12.9 g/dL (12.0-15.5) Hematocrit 37.5 % (36.0-47.0) Mean Corpuscular Volume 90 fL (79-100) Mean Corpuscular Hemoglobin 31 pg (25-35) Mean Corpuscular Hemoglobin Concent 35 g/dL (31-37) Red Cell Distribution Width 14.3 % (11.5-14.5) Platelet Count 179 x10^3/uL (140-400) Neutrophils (%) (Auto) 87 % (31-73) Lymphocytes (%) (Auto) 11 % (24-48) Monocytes (%) (Auto) 2 % (0-9) Eosinophils (%) (Auto) 0 % (0-3) Basophils (%) (Auto) 0 % (0-3) Neutrophils # (Auto) 7.8 x10^3/uL (1.8-7.7) Lymphocytes # (Auto) 1.0 x10^3/uL (1.0-4.8) Monocytes # (Auto) 0.2 x10^3/uL (0.0-1.1) Eosinophils # (Auto) 0.0 x10^3/uL (0.0-0.7) Basophils # (Auto) 0.0 x10^3/uL (0.0-0.2) Segmented Neutrophils % 89 % (35-66) Lymphocytes % 9 % (24-48) Monocytes % 2 % (0-10) Platelet Estimate Adequate (ADEQUATE) Sodium Level 137 mmol/L (136-145) Potassium Level 3.8 mmol/L (3.5-5.1) Chloride Level 103 mmol/L (98-107) Carbon Dioxide Level 27 mmol/L (21-32) Anion Gap 7 (6-14) Blood Urea Nitrogen 12 mg/dL (7-20) Creatinine 0.9 mg/dL (0.6-1.0) Estimated GFR (Cockcroft-Gault) 62.3 Glucose Level 165 mg/dL (70-99) Lactic Acid Level 1.4 mmol/L (0.4-2.0) Calcium Level 8.4 mg/dL (8.5-10.1) Troponin I Quantitative < 0.017 ng/mL (0.000-0.055) Test 03/08/19 20:35 03/09/19 00:30 03/09/19 06:08 03/09/19 07:36 Glucose (Fingerstick) 209 mg/dL (70-99) 145 mg/dL (70-99) Troponin I Quantitative < 0.017 ng/mL (0.000-0.055) < 0.017 ng/mL (0.000-0.055) Laboratory Tests Test 03/08/19 11:57 03/08/19 17:50 03/08/19 20:35 03/09/19 00:30 Glucose (Fingerstick) 225 mg/dL (70-99) 209 mg/dL (70-99) Troponin I Quantitative < 0.017 ng/mL (0.000-0.055) < 0.017 ng/mL (0.000-0.055) Test 03/09/19 06:08 03/09/19 07:36 Troponin I Quantitative < 0.017 ng/mL (0.000-0.055) Glucose (Fingerstick) 145 mg/dL (70-99) Microbiology 03/07/19 Blood Culture - Preliminary, Resulted NO GROWTH AFTER 1 DAY Medications Current Medications Albuterol/ Ipratropium (Duoneb) 3 ml 1X ONCE NEB Last administered on 03/07/19 14:06; Start 03/07/19 at 14:00; Stop 03/07/19 at 14:01; Status DC Albuterol Sulfate (Ventolin Neb Soln) 2.5 mg PRN Q2HRS PRN INH shortness of breath Last administered on 03/07/19at 17:17; Start 03/07/19 at 17:00 Azelastine HCl (Astelin) 2 spray BID NS Last administered on 03/08/19 21:12; Start 03/07/19 at 21:00 Cyclobenzaprine HCl (Flexeril) 10 mg TID PO Last administered on 03/08/19 21:12; Start 03/07/19 at 21:00 Folic Acid (Folic Acid) 1 mg DAILY PO Last administered on 03/08/19 08:53; Start 03/08/19 at 09:00 Gabapentin (Neurontin) 300 mg TID PO Last administered on 03/08/19 21:12; Start 03/07/19 at 21:00 Lisinopril (Prinivil) 40 mg DAILY PO Last administered on 03/08/19 08:53; Start 03/08/19 at 09:00 Montelukast Sodium (Singulair) 10 mg DAILY PO Last administered on 03/08/19at 08:53; Start 03/08/19 at 09:00 Pantoprazole Sodium (Protonix) 40 mg DAILYAC PO Last administered on 03/08/19 08:52; Start 03/08/19 at 07:30 Potassium Chloride (Klor-Con) 20 meq [id number] PO Last administered on 03/08/19 08:52; Start 03/08/19 at 08:00 Albuterol/ Ipratropium (Duoneb) 3 ml RTQID NEB Last administered on 03/09/19 07:02; Start 03/07/19 at 20:00 Doxycycline Hyclate 100 mg/ Dextrose 100 ml @ 50 mls/hr Q12HR IV Last administered on 03/08/19 21:11; Start 03/07/19 at 21:00 Budesonide (Pulmicort) 0.5 mg RTBID NEB Last administered on 03/09/19 07:02; Start 03/07/19 at 20:00 Labetalol HCl (Normodyne Iv Push) 10 mg PRN Q2HR PRN IVP HYPERTENSION; Start 03/07/19 at 17:00 Methylprednisolone Sodium Succinate (SOLU-Medrol 40MG VIAL) 40 mg Q8HRS IV Last administered on 03/09/19 06:33; Start 03/07/19 at 20:00 Enoxaparin Sodium (Lovenox 40mg Syringe) 40 mg Q24H SQ Last administered on 03/08/19 21:13; Start 03/07/19 at 21:00 Magnesium Sulfate/ Dextrose 100 ml @ 25 mls/hr 1X ONCE IV Last administered on 03/07/19 17:59; Start 03/07/19 at 18:00; Stop 03/07/19 at 21:59; Status DC Epinephrine HCl (Adrenalin) 0.3 mg PRN Q5MIN PRN SQ ALLERGIC REACTION, SEVERE; Start 03/07/19 at 18:15 Diphenhydramine HCl (Benadryl) 25 mg PRN Q6HRS PRN IV ITCHING, ALLERGIC REACTION; Start 03/07/19 at 18:15 Oxycodone/ Acetaminophen (Percocet 5/325) 1 tab PRN Q6HRS PRN PO PAIN Last administered on 03/09/19 06:39; Start 03/07/19 at 20:00 Fluoxetine HCl (PROzac) 40 mg DAILY PO Last administered on 03/08/19 08:53; Start 03/08/19 at 09:00 Furosemide (Lasix) 40 mg DAILY IVP Last administered on 03/08/19at 08:54; Start 03/08/19 at 09:00 Nicotine (Nicoderm Cq 21mg) 1 patch PRN DAILY PRN TD SMOKING CESSATION; Start 03/08/19 at 08:30 Ondansetron HCl (Zofran) 4 mg PRN Q6HRS PRN IV NAUSEA/VOMITING; Start 03/08/19 at 08:30 Benzonatate (Tessalon Perle) 100 mg [id number] PO Last administered on 03/08/19 21:12; Start 03/08/19 at 09:00 Non-Formulary Medication (Empagliflozin (Jardiance)) 10 mg DAILY PO Last administered on 03/08/19at 14:06; Start 03/08/19 at 14:00 Lactobacillus Rhamnosus (Culturelle) 1 cap BID PO Last administered on 03/08/19at 21:12; Start 03/08/19 at 21:00 Active Scripts Active Reported Jardiance (Empagliflozin) 10 Mg Tablet 10 Mg PO DAILY Celebrex (Celecoxib) 200 Mg Capsule 200 Mg PO BID PRN 30 Days Pantoprazole Sodium (Pantoprazole Sodium) 40 Mg Tablet.dr 1 Tab PO DAILY Advair 500-50 Diskus (Fluticasone/Salmeterol) 1 Each Disk.w.dev 1 Puff IH BID Dimenhydrinate 50 Mg Tablet 50 Mg PO Colace Clear (Docusate Sodium) 50 Mg Capsule 50 Mg PO Zofran (Ondansetron Hcl) 8 Mg Tablet 1 Tab PO Q8HRS Gabapentin (Gabapentin) 300 Mg Capsule 1 Cap PO TID Prozac (Fluoxetine Hcl) 40 Mg Capsule 1 Cap PO DAILY Oxycontin (Oxycodone HCl) 10 Mg Tab.er.12h 1 Tab PO BID Lisinopril 40 Mg Tablet 1 Tab PO DAILY Pravastatin Sodium 80 Mg Tablet 1 Tab PO DAILY Folic Acid 1 Mg Tablet 1 Tab PO DAILY Proair Hfa Inhaler (Albuterol Sulfate) 8.5 Gm Hfa.aer.ad 2 Puff IH PRN Q4-6HRS Cyclobenzaprine Hcl 10 Mg Tablet 1 Tab PO TID Montelukast Sodium Tablet (Montelukast Sodium) 10 Mg Tablet 1 Tab PO DAILY K-Tab ER (Potassium Chloride) 20 Meq Tablet.er 20 Meq PO DAILY Azelastine Hcl 137 Mcg/0.137 Ml Charlotte.pump 2 Charlotte NS BID [atarax] Flonase Allergy Relief (Fluticasone Propionate) 9.9 Ml Charlotte.susp 9.9 Ml NS Vitals/I & O Vital Sign - Last 24 Hours 03/08/19 03/08/19 03/08/19 03/08/19 11:00 11:11 11:26 15:00 Temp 97.8 98.2 97.8 98.2 Pulse 58 51 Resp 20 20 B/P (MAP) 153/62 (92) 148/61 (90) Pulse Ox 96 96 96 O2 Delivery Nasal Cannula Nasal Cannula Nasal Cannula Nasal Cannula O2 Flow Rate 4.0 4.0 03/08/19 03/08/19 03/08/19 03/08/19 15:44 19:10 19:20 19:21 Temp 98.7 98.7 Pulse 61 Resp 22 B/P (MAP) 144/58 (86) Pulse Ox 96 97 95 95 O2 Delivery Nasal Cannula Nasal Cannula Nasal Cannula Nasal Cannula O2 Flow Rate 4.0 4.0 4.0 4.0 03/08/19 03/08/19 03/09/19 03/09/19 20:00 23:10 03:10 06:39 Temp 98.6 98.8 98.6 98.8 Pulse 58 66 Resp 20 20 B/P (MAP) 135/65 (88) 161/71 (101) Pulse Ox 98 96 O2 Delivery Nasal Cannula Nasal Cannula Nasal Cannula Nasal Cannula O2 Flow Rate 4.0 4.0 4.0 4.0 03/09/19 03/09/19 07:06 07:25 Temp 98.2 98.2 Pulse 67 Resp 22 B/P (MAP) 147/56 (86) Pulse Ox 95 94 O2 Delivery Nasal Cannula Nasal Cannula O2 Flow Rate 4.0 4.0 Intake and Output 03/08/19 03/08/19 03/09/19 14:59 22:59 06:59 Intake Total 100 ml Output Total 600 ml 300 ml Balance -600 ml -300 ml 100 ml BRENDA MILLER MD Mar 09, 2019 10:19
--- NOTE | 2019-03-09 10:28 | PDOC2 ---
CARDIAC CONSULT DATE OF CONSULT Date of Consult DATE: 03/09/19 TIME: 10:10 REASON FOR CONSULT Reason for Consult: Chest pain REFERRING PHYSICIAN Referring Physician: Dr. Stuart SOURCE Source: Chart review, Patient HISTORY OF PRESENT ILLNESS HISTORY OF PRESENT ILLNESS This is a 68 yo female who presented secondary to shortness of breath. Patient reports she has been more short of breath for the last 2 weeks. Worse over the weekend. Has had bilateral LE edema for the last month or so. Over the last week, has had some pain in her left chest. Report that pain actually begins behind her left ear and into her neck. Radiated down to her left shoulder and left chest, around her breast, and then down her left side and into her inner thigh. Describes as tightness. Worsened with certain movements such as raising her left shoulder. No associated dizziness, diaphoresis, palpitations, or nausea/vomiting. No h/o CAD or CHF. PAST MEDICAL HISTORY Cardiovascular: HTN, Hyperlipidemia Pulmonary: Asthma, Other (JAUN) GI: Diverticulosis, GERD Psych: Anxiety, Depression Musculoskeletal: Osteoarthritis Endocrine: Diabetes, Osteoporosis PAST SURGICAL HISTORY Past Surgical History: Cholecystectomy, Total knee replacement (bilateral ), Hysterectomy, Other (left ankle) FAMILY HISTORY Family History: Heart Disease (father) SOCIAL HISTORY Smoke: No ALCOHOL: none Drugs: None Lives: with Family CURRENT MEDICATIONS CURRENT MEDICATIONS Current Medications Medications (Trade) Dose Ordered Sig/Misty Route PRN Reason Start Time Stop Time Status Last Admin Dose Admin Non-Formulary Medication (Empagliflozin (Jardiance)) 10 mg DAILY PO 03/08/19 14:00 03/08/19 14:06 Lactobacillus Rhamnosus (Culturelle) 1 cap BID PO 03/08/19 21:00 03/08/19 21:12 ALLERGIES ALLERGIES: Coded Allergies: aspartame (Verified Allergy, Severe, THROAT SWELLS, 03/07/19) atorvastatin (Unverified Allergy, Severe, ANAPHYLAXIS, 03/07/19) diclofenac (Unverified Allergy, Severe, HIVES, THROAT SWELLS, 03/07/19) ibuprofen (Verified Allergy, Severe, Anaphylaxis -cuts off air supply per patient, TAKES ALLEVE, 12/01/14) phenytoin (Unverified Allergy, Severe, HIVES, THROAT SWELLS, 03/07/19) Garlic. (Verified Allergy, Intermediate, 12/02/14) Milk Containing Products (Verified Allergy, Intermediate, 12/02/14) CHEESE Penicillins (Unverified Allergy, Intermediate, 11/29/14) acetaminophen (Unverified Allergy, Intermediate, Hives, 03/07/19) aspirin (Unverified Allergy, Intermediate, 11/29/14) cephalexin (Unverified Allergy, Intermediate, HIVES, SWELLING, 03/07/19) cheese (Verified Allergy, Intermediate, 03/08/19) chlorzoxazone (Unverified Allergy, Intermediate, 11/30/14) codeine (Unverified Allergy, Intermediate, 11/29/14) diphenhydramine (Unverified Allergy, Intermediate, Hives, 03/07/19) doxycycline (Unverified Allergy, Intermediate, Hives, 03/07/19) egg (Unverified Allergy, Intermediate, 12/01/14) erythromycin base (Unverified Allergy, Intermediate, Hives, 03/07/19) etodolac (Unverified Allergy, Intermediate, Hives, 03/07/19) ezetimibe (Unverified Allergy, Intermediate, Hives, 03/07/19) glucosamine (Unverified Allergy, Intermediate, 11/30/14) guaifenesin (Unverified Allergy, Intermediate, 11/30/14) hydrocodone (Unverified Allergy, Intermediate, Hives, 03/07/19) iodine (Unverified Allergy, Intermediate, Hives, 03/07/19) kiwi (Unverified Allergy, Intermediate, 12/01/14) methylprednisolone (Unverified Allergy, Intermediate, Hives, 03/07/19) orphenadrine (Unverified Allergy, Intermediate, Hives, 03/07/19) peanut (Unverified Allergy, Intermediate, 12/01/14) phenazopyridine (Unverified Allergy, Intermediate, Hives, 03/07/19) pork derived (porcine) (Verified Allergy, Intermediate, 03/08/19) ranitidine (Unverified Allergy, Intermediate, Hives, 03/07/19) rosuvastatin (Unverified Allergy, Intermediate, 11/30/14) salicylic acid (Unverified Allergy, Intermediate, 11/30/14) shellfish derived (Unverified Allergy, Intermediate, 12/01/14) simvastatin (Unverified Allergy, Intermediate, Hives, 03/07/19) sulfite (Unverified Allergy, Intermediate, 11/30/14) tramadol (Unverified Allergy, Intermediate, Hives, 03/07/19) tree nut (Verified Allergy, Intermediate, 12/02/14) [employer] walnut (Verified Allergy, Intermediate, 03/08/19) yellow dye (Verified Allergy, Intermediate, 03/08/19) morphine (Unverified Adverse Reaction, Intermediate, vomiting , 11/30/14) ROS Review of System 14 point ROS conducted with pertinent positives noted above in HPI. PHYSICAL EXAM General: Alert, Oriented X3, Cooperative, No acute distress HEENT: Atraumatic, Mucous membr. moist/pink Lungs: Clear to auscultation, Normal air movement Heart: Regular rate, Normal S1, Normal S2, No murmurs Abdomen: Normal bowel sounds, Soft, No tenderness, Other (obese) Extremities: Normal pulses, Other (1+ bilateral LE edema ) Skin: No breakdown, No significant lesion Neuro: Normal speech, Sensation intact Psych/Mental Status: Mental status NL, Mood NL MUSCULOSKELETAL: Osteoarthritic changes both hands VITALS/I&O VITALS/I&O: Vital Signs Date Time Temp Pulse Resp B/P (MAP) Pulse Ox O2 Delivery O2 Flow Rate FiO2 03/09/19 07:25 98.2 67 22 147/56 (86) 94 Nasal Cannula 4.0 98.2 I & O 03/08/19 03/08/19 03/09/19 14:59 22:59 06:59 Intake Total 100 ml Output Total 600 ml 300 ml Balance -600 ml -300 ml 100 ml LABS Lab: Laboratory Tests Test 03/08/19 11:57 03/08/19 17:50 03/08/19 20:35 03/09/19 00:30 Glucose (Fingerstick) 225 mg/dL (70-99) H 209 mg/dL (70-99) H Troponin I Quantitative < 0.017 ng/mL (0.000-0.055) < 0.017 ng/mL (0.000-0.055) Test 03/09/19 06:08 03/09/19 07:36 Troponin I Quantitative < 0.017 ng/mL (0.000-0.055) Glucose (Fingerstick) 145 mg/dL (70-99) H STRESS TEST STRESS TEST Conclusion 1. Regadenoson cardioisotope stress test did not show any evidence of ischemia or infarct. 2. Normal left ventricular systolic function with ejection fraction calculated at 57%. 3. Low risk for cardiovascular events. DATE: 12/01/14 1117 ASSESSMENT/PLAN ASSESSMENT/PLAN 1. Acute hypoxic respiratory failure 2. Acute on chronic diastolic CHF 3. Chest pain, atypical. AMI ruled out. 4. Hypertension; mostly controlled 5. Asthma, JAUN with CPAP 6. Diabetes, II 7. Hyperlipidemia Recommendations Ongoing diuresis Echo to assess LV systolic function Lipids, TSH AM labs Multiple medications allergies including ASA, statins Consider outpatient ischemic evaluation, given risk factors, unless echo significantly abnormal. Supportive care RAMON CHAVARRIA APRN Mar 09, 2019 10:28
--- NOTE | 2019-03-09 11:02 | NUR ---
Patient returned to the floor at approx 1000.
--- NOTE | 2019-03-09 11:17 | PDOC ---
PULMONARY PROGRESS NOTES Subjective feels much better no soa Vitals Vital Signs Date Time Temp Pulse Resp B/P (MAP) Pulse Ox O2 Delivery O2 Flow Rate FiO2 03/09/19 11:00 95 Nasal Cannula 4.0 03/09/19 07:25 98.2 67 22 147/56 (86) 98.2 ROS: No Chest Pain, No Abdominal Pain General: Alert, No acute distress Lungs: Clear Cardiovascular: S1 Abdomen: Soft Neuro Exam: Alert Extremities: No Edema Skin: Warm Labs Laboratory Tests Test 03/07/19 14:05 03/07/19 14:30 03/07/19 18:40 03/07/19 20:27 O2 Saturation 93 % (92-99) Arterial Blood pH 7.48 (7.35-7.45) Arterial Blood pCO2 at Patient Temp 34 mmHg (35-46) Arterial Blood pO2 at Patient Temp 62 mmHg (65-108) Arterial Blood HCO3 24 mmol/L (21-28) Arterial Blood Base Excess 1 mmol/L (-3-3) Oxyhemoglobin 92.0 % Methemoglobin 0.4 % (0.0-1.9) Carbon Monoxide, Quantitative 0.1 % (0.0-1.9) FiO2 4 lpm nc White Blood Count 12.8 x10^3/uL (4.0-11.0) Red Blood Count 4.67 x10^6/uL (3.50-5.40) Hemoglobin 14.2 g/dL (12.0-15.5) Hematocrit 42.6 % (36.0-47.0) Mean Corpuscular Volume 91 fL (79-100) Mean Corpuscular Hemoglobin 30 pg (25-35) Mean Corpuscular Hemoglobin Concent 33 g/dL (31-37) Red Cell Distribution Width 14.0 % (11.5-14.5) Platelet Count 206 x10^3/uL (140-400) Neutrophils (%) (Auto) 81 % (31-73) Lymphocytes (%) (Auto) 11 % (24-48) Monocytes (%) (Auto) 6 % (0-9) Eosinophils (%) (Auto) 1 % (0-3) Basophils (%) (Auto) 0 % (0-3) Neutrophils # (Auto) 10.4 x10^3/uL (1.8-7.7) Lymphocytes # (Auto) 1.4 x10^3/uL (1.0-4.8) Monocytes # (Auto) 0.7 x10^3/uL (0.0-1.1) Eosinophils # (Auto) 0.1 x10^3/uL (0.0-0.7) Basophils # (Auto) 0.0 x10^3/uL (0.0-0.2) Sodium Level 140 mmol/L (136-145) Potassium Level 4.0 mmol/L (3.5-5.1) Chloride Level 101 mmol/L (98-107) Carbon Dioxide Level 28 mmol/L (21-32) Anion Gap 11 (6-14) Blood Urea Nitrogen 12 mg/dL (7-20) Creatinine 1.0 mg/dL (0.6-1.0) Estimated GFR (Cockcroft-Gault) 55.1 BUN/Creatinine Ratio 12 (6-20) Glucose Level 130 mg/dL (70-99) Lactic Acid Level 3.1 mmol/L (0.4-2.0) Calcium Level 9.3 mg/dL (8.5-10.1) Magnesium Level 1.6 mg/dL (1.8-2.4) Total Bilirubin 0.9 mg/dL (0.2-1.0) Aspartate Amino Transf (AST/SGOT) 28 U/L (15-37) Alanine Aminotransferase (ALT/SGPT) 29 U/L (14-59) Alkaline Phosphatase 101 U/L (46-116) Troponin I Quantitative 0.017 ng/mL (0.000-0.055) ZM-Ybr-J-Type Natriuretic Peptide 895 pg/mL (0-124) Total Protein 7.1 g/dL (6.4-8.2) Albumin 3.2 g/dL (3.4-5.0) Albumin/Globulin Ratio 0.8 (1.0-1.7) Lipase 35 U/L (73-393) Glucose (Fingerstick) 134 mg/dL (70-99) 142 mg/dL (70-99) Test 03/08/19 07:36 03/08/19 08:05 03/08/19 11:57 03/08/19 17:50 Glucose (Fingerstick) 146 mg/dL (70-99) 225 mg/dL (70-99) White Blood Count 9.1 x10^3/uL (4.0-11.0) Red Blood Count 4.15 x10^6/uL (3.50-5.40) Hemoglobin 12.9 g/dL (12.0-15.5) Hematocrit 37.5 % (36.0-47.0) Mean Corpuscular Volume 90 fL (79-100) Mean Corpuscular Hemoglobin 31 pg (25-35) Mean Corpuscular Hemoglobin Concent 35 g/dL (31-37) Red Cell Distribution Width 14.3 % (11.5-14.5) Platelet Count 179 x10^3/uL (140-400) Neutrophils (%) (Auto) 87 % (31-73) Lymphocytes (%) (Auto) 11 % (24-48) Monocytes (%) (Auto) 2 % (0-9) Eosinophils (%) (Auto) 0 % (0-3) Basophils (%) (Auto) 0 % (0-3) Neutrophils # (Auto) 7.8 x10^3/uL (1.8-7.7) Lymphocytes # (Auto) 1.0 x10^3/uL (1.0-4.8) Monocytes # (Auto) 0.2 x10^3/uL (0.0-1.1) Eosinophils # (Auto) 0.0 x10^3/uL (0.0-0.7) Basophils # (Auto) 0.0 x10^3/uL (0.0-0.2) Segmented Neutrophils % 89 % (35-66) Lymphocytes % 9 % (24-48) Monocytes % 2 % (0-10) Platelet Estimate Adequate (ADEQUATE) Sodium Level 137 mmol/L (136-145) Potassium Level 3.8 mmol/L (3.5-5.1) Chloride Level 103 mmol/L (98-107) Carbon Dioxide Level 27 mmol/L (21-32) Anion Gap 7 (6-14) Blood Urea Nitrogen 12 mg/dL (7-20) Creatinine 0.9 mg/dL (0.6-1.0) Estimated GFR (Cockcroft-Gault) 62.3 Glucose Level 165 mg/dL (70-99) Lactic Acid Level 1.4 mmol/L (0.4-2.0) Calcium Level 8.4 mg/dL (8.5-10.1) Troponin I Quantitative < 0.017 ng/mL (0.000-0.055) Test 03/08/19 20:35 03/09/19 00:30 03/09/19 06:08 03/09/19 07:36 Glucose (Fingerstick) 209 mg/dL (70-99) 145 mg/dL (70-99) Troponin I Quantitative < 0.017 ng/mL (0.000-0.055) < 0.017 ng/mL (0.000-0.055) Magnesium Level 2.3 mg/dL (1.8-2.4) Laboratory Tests Test 03/08/19 11:57 03/08/19 17:50 03/08/19 20:35 03/09/19 00:30 Glucose (Fingerstick) 225 mg/dL (70-99) 209 mg/dL (70-99) Troponin I Quantitative < 0.017 ng/mL (0.000-0.055) < 0.017 ng/mL (0.000-0.055) Test 03/09/19 06:08 03/09/19 07:36 Magnesium Level 2.3 mg/dL (1.8-2.4) Troponin I Quantitative < 0.017 ng/mL (0.000-0.055) Glucose (Fingerstick) 145 mg/dL (70-99) Medications Active Scripts Medications Dose Route/Sig Max Daily Dose Days Date Category Jardiance (Empagliflozin) 10 Mg Tablet 10 Mg PO DAILY 03/08/19 Reported Celebrex (Celecoxib) 200 Mg Capsule 200 Mg PO BID PRN 30 12/02/14 Reported Pantoprazole Sodium (Pantoprazole Sodium) 40 Mg Tablet.dr 1 Tab PO DAILY 11/29/14 Reported Advair 500-50 Diskus (Fluticasone/Salmeterol) 1 Each Disk.w.dev 1 Puff IH BID 11/29/14 Reported Dimenhydrinate 50 Mg Tablet 50 Mg PO 11/29/14 Reported Colace Clear (Docusate Sodium) 50 Mg Capsule 50 Mg PO 11/29/14 Reported Zofran (Ondansetron Hcl) 8 Mg Tablet 1 Tab PO Q8HRS 11/29/14 Reported Gabapentin (Gabapentin) 300 Mg Capsule 1 Cap PO TID 11/29/14 Reported Prozac (Fluoxetine Hcl) 40 Mg Capsule 1 Cap PO DAILY 11/29/14 Reported Oxycontin (Oxycodone HCl) 10 Mg Tab.er.12h 1 Tab PO BID 11/29/14 Reported Lisinopril 40 Mg Tablet 1 Tab PO DAILY 11/29/14 Reported Pravastatin Sodium 80 Mg Tablet 1 Tab PO DAILY 11/29/14 Reported Folic Acid 1 Mg Tablet 1 Tab PO DAILY 11/29/14 Reported Proair Hfa Inhaler (Albuterol Sulfate) 8.5 Gm Hfa.aer.ad 2 Puff IH PRN Q4-6HRS 11/29/14 Reported Cyclobenzaprine Hcl 10 Mg Tablet 1 Tab PO TID 11/29/14 Reported Montelukast Sodium Tablet (Montelukast Sodium) 10 Mg Tablet 1 Tab PO DAILY 11/29/14 Reported K-Tab ER (Potassium Chloride) 20 Meq Tablet.er 20 Meq PO DAILY 11/29/14 Reported Azelastine Hcl 137 Mcg/0.137 Ml [place].pump 2 [place] NS BID 11/29/14 Reported [atarax] 11/29/14 Reported Flonase Allergy Relief (Fluticasone Propionate) 9.9 Ml [place].susp 9.9 Ml NS 11/29/14 Reported Impression . 1. Dyspnea with acute hypoxic respiratory failure along with ankle edema, likely related to congestive heart failure. Could be acute diastolic or systolic. 2. Abnormal chest x-ray with bilateral interstitial infiltrates, likely congestive heart failure. Good response to diuretics. 3. Chronic cough, which has been present for the last 6 months and most likely lisinopril-induced cough. 4. Morbid obesity. 5. Underlying obstructive sleep apnea with good compliance to CPAP. 6. Chronic respiratory failure with home oxygen at nighttime and p.r.n. during the day. Plan . 1. Continue with present oxygen, keep saturation 92% and above. 2. Continue diuresis and see the response to treatment. 3. she has made clinical improvement. 4. Continue diuresis and monitor renal function. 5. Continue bronchodilators. 6. Continue steroids. 7. Continue oral antibiotics at present. 8. discontinue lisinopril and changing to cozar. d/w KARRI 9. Obtain echocardiogram. 10. Discussed with RN and we will follow along with you. THOMAS CORTES MD Mar 09, 2019 11:17
--- NOTE | 2019-03-09 11:24 | CARD ---
MR#: [id number] Date of Study: 03/09/2019 Ordering Physician: THOMAS CORTES, Referring Physician: LEMUEL MURPHY, Tech: Natividad Junior APPROVED REPORT EXAM: Two-dimensional and M-mode echocardiogram with Doppler and color Doppler. Other Information Quality : FairHR: 58bpm INDICATION Dyspnea Congestive Heart Failure RISK FACTORS Hypertension Hyperlipidemia Diabetes 2D DIMENSIONS RVDd3.6 (2.9-3.5cm)Left Atrium(2D)4.3 (1.6-4.0cm) IVSd1.5 (0.7-1.1cm)Aortic Root(2D)2.8 (2.0-3.7cm) LVDd5.5 (3.9-5.9cm)LVOT Diameter2.0 (1.8-2.4cm) PWd1.3 (0.7-1.1cm)LVDs2.3 (2.5-4.0cm) FS (%) 54.9 %SV100.9 ml LVEF(%)85.4 (>50%) Aortic Valve AoV Peak Bala.166.5cm/sAoV VTI38.1cm AO Peak GR.11.1mmHgLVOT Peak Bala.101.2cm/s LVOT VTI 25.29cmAO Mean GR.6mmHg PENNY (VMAX)1.50ka2JVA (VTI)2.06cm2 AI P 1/2 Ptmw323er Mitral Valve MV E Yxnlbdlw664.7cm/sMV E Peak Gr.103mmHg MV DECEL [id number] A Figebnuy43.5cm/s MV E Mean Gr.3mmHgMV BBZ38ux E/A Ratio1.6MVA (PHT)3.71cm2 TDI E/Lateral E'15.2E/Medial E'19.9 Pulmonary Valve PV Peak Ymqzlsbf954.4cm/sPV Peak Grad.5mmHg Tricuspid Valve TR P. Fmczxcpu485tr/sRAP HOLFRNDW20skZd TR Peak Gr.04rgDwMAEN78hsNw Pulmonary Vein S1 Oktnizug82.4cm/sD2 Ntzaxnzw21.7cm/s PVa [id number] LEFT VENTRICLE The left ventricle is normal size. There is moderate concentric left ventricular hypertrophy. The lef t ventricular systolic function is normal and the ejection fraction is within normal range. The Eject ion Fraction is 50-55%. Wall motion not well visualized. Transmitral Doppler flow pattern is Grade II -pseudonormal filling dynamics. RIGHT VENTRICLE The right ventricle is normal size. There is normal right ventricular wall thickness. The right ventr icular systolic function is normal. ATRIA The left atrium is mildly dilated. The right atrium size is normal. The interatrial septum is intact with no evidence for an atrial septal defect or patent foramen ovale as noted on 2-D or Doppler imagi ng. AORTIC VALVE The aortic valve is not well visualized. Doppler and Color Flow revealed trace to mild aortic regurgi tation. There is no significant aortic valvular stenosis. MITRAL VALVE The mitral valve is normal in structure and function. There is no evidence of mitral valve prolapse. There is no mitral valve stenosis. Doppler and Color-flow revealed mild mitral regurgitation. TRICUSPID VALVE The tricuspid valve is not well visualized. Doppler and Color Flow revealed trace tricuspid regurgita tion with an estimated PAP of 54 mmHg. There is no tricuspid valve stenosis. PULMONIC VALVE The pulmonic valve is not well visualized. Doppler and Color Flow revealed no pulmonic valvular regur gitation. There is no pulmonic valvular stenosis. GREAT VESSELS The aortic root is normal in size. The IVC is dilated and collapses <50% with inspiration. PERICARDIAL EFFUSION There is no evidence of significant pericardial effusion. Critical Notification Critical Value: No <Conclusion> The left ventricular systolic function is normal and the ejection fraction is within normal range. Th e Ejection Fraction is 50-55%. Wall motion not well visualized. Doppler and Color Flow revealed trace tricuspid regurgitation with an estimated PAP of 54 mmHg. The IVC is dilated and collapses <50% with inspiration. Signed by : Travis Tiwari, Electronically Approved : 03/09/2019 11:23:26
[2019-03-09 11:25] VITALS: BP 148/64
[2019-03-09] MEDS: AZELASTINE NASAL SPRAY 30ML BOTTLE. NS SCH ×2 (11:34→21:29)
[2019-03-09] MEDS: DOXYCYCLINE HYCLATE 100 MG in IV DEXTROSE 5% 100ML 100 ML IV SCH (11:35)
[2019-03-09] MEDS: FUROSEMIDE 40 MG/4 ML VIAL. IVP SCH (11:36)
[2019-03-09] MEDS: GABAPENTIN 300 MG CAPSULE. PO SCH ×3 (11:36→21:30)
[2019-03-09] MEDS: FLUoxetine HCL 20 MG CAPSULE PO SCH (11:37)
[2019-03-09] MEDS: BENZONATATE 100 MG CAPSULE. PO SCH ×3 (11:37→21:31)
[2019-03-09] MEDS: PANTOPRAZOLE 40 MG TABLET.DR. PO SCH (11:37)
[2019-03-09] MEDS: MONTELUKAST SODIUM 10 MG TABLET. PO SCH (11:37)
[2019-03-09] MEDS: LACTOBACILLUS RHAMNOSUS GG 1 CAPSULE. PO SCH ×2 (11:37→21:29)
[2019-03-09] MEDS: FOLIC ACID 1 MG TABLET. PO SCH (11:38)
[2019-03-09] MEDS: CYCLOBENZAPRINE 10 MG TABLET. PO SCH ×3 (11:38→21:31)
[2019-03-09] MEDS: POTASSIUM CHLORIDE 20 MEQ TABLET.ER. PO SCH (11:40)
--- NOTE | 2019-03-09 12:27 | RAD ---
EXAM: AP View of the chest DATE: 03/09/2019 8:00 AM INDICATION: CHF, dyspnea COMPARISON: 03/05/2019, 01/03/2019 FINDINGS: Mild cardiomegaly. Aorta is mildly tortuous Mediastinal and hilar contours are stable. Improved aeration of the lungs bilaterally. No pleural effusion or pneumothorax. IMPRESSION: Improved aeration with less conspicuous interstitial opacities suggesting improving pulmonary edema. Stable cardiomegaly. Electronically signed by: Real Mitchell MD (03/09/2019 12:24 PM) [facility]
--- NOTE | 2019-03-09 14:57 | NUR ---
SS following for discharge planning. SS reviewed pt chart. Pt is from home with family and is currently requiring oxygen. PT/OT recommended nursing home unit. SS met with pt to discuss nursing home unit and discharge planning. Pt agreeable to nursing home unit and requested referral be phone and faxed to [facility], ; fax [phone]. SS phoned and faxed referral to [facility]. SS will await acceptance decision and insurance determination and will proceed accordingly with discharge planning.
[2019-03-09 15:20] VITALS: BP 156/52
[2019-03-09] MEDS ORDERED: POTASSIUM CHLORIDE 20 MEQ TABLET.ER. PO ONE (16:00)
[2019-03-09] MEDS ORDERED: FUROSEMIDE 40 MG/4 ML VIAL. IVP ONE (16:00)
[2019-03-09 19:15] VITALS: BP 161/63
[2019-03-09] MEDS: DOXYCYCLINE HYCLATE 100 MG TABLET PO SCH (21:31)
[2019-03-09] MEDS: ENOXAPARIN 40 MG/0.4 ML SYRINGE. SQ SCH (21:31)
[2019-03-09 23:38] VITALS: BP 164/64
[2019-03-10] VITALS (7 sets, daily range): BP systolic 139–198; BP diastolic 48–87
[2019-03-10 03:56] LABS: BASO % 0 % (0-3); EOS % 0 % (0-3); HEMATOCRIT 38.6 % (36.0-47.0); HEMOGLOBIN 12.9 g/dL (12.0-15.5); LYMPH # 0.9 x10^3/uL (1.0-4.8); LYMPH % 8 % (24-48); MEAN CORPUSCULAR HEMOGLOBIN 31 pg (25-35); MEAN CORPUSCULAR HGB CONC 33 g/dL (31-37); MEAN CORPUSCULAR VOLUME 91 fL (79-100); MONO # 0.4 x10^3/uL (0.0-1.1); MONO % 3 % (0-9); NEUT # 9.9 x10^3/uL (1.8-7.7); NEUT % 88 % (31-73); PLATELET COUNT 216 x10^3/uL (140-400); RED BLOOD COUNT 4.22 x10^6/uL (3.50-5.40); RED CELL DISTRIBUTION WIDTH 14.3 % (11.5-14.5); WHITE BLOOD COUNT 11.2 x10^3/uL (4.0-11.0)
[2019-03-10 04:44] LABS: ALBUMIN 2.7 g/dL (3.4-5.0); ALBUMIN/GLOBULIN RATIO 0.6 (1.0-1.7); CALCIUM 9.1 mg/dL (8.5-10.1); CHOLESTEROL/HDL RATIO 4.4; CREATININE 1.1 mg/dL (0.6-1.0); GFR 49.4; POTASSIUM 4.3 mmol/L (3.5-5.1); TOTAL BILIRUBIN 0.4 mg/dL (0.2-1.0); TOTAL PROTEIN 7.3 g/dL (6.4-8.2)
[2019-03-10] MEDS: methylPREDNISolone SOD SUCC PF 40 MG/ML VIAL. IV SCH (05:55)
[2019-03-10] MEDS: PANTOPRAZOLE 40 MG TABLET.DR. PO SCH (05:55)
[2019-03-10] MEDS: LABETALOL 20 MG/4 ML DISP.SYRIN. IVP PRN ×2 (06:02→11:24)
[2019-03-10] MEDS: BUDESONIDE 0.5 MG/2 ML NEBU. NEB SCH ×2 (08:01→19:38)
[2019-03-10] MEDS: IPRATRPIUM/ALBUTEROL 0.5/2.5MG 3 ML NEBU. NEB SCH ×4 (08:01→19:38)
--- NOTE | 2019-03-10 08:03 | PDOC ---
PROGRESS NOTES Chief Complaint Chief Complaint impression Acute hypoxia with resp failure- COPD exacerbation plus apparent CHF exacerbation, COPD - O2 dependent, 4 LNC The left ventricular systolic function is normal and the ejection fraction is within normal range. The Ejection Fraction is 50-55%. Wall motion not well visualized. Doppler and Color Flow revealed trace tricuspid regurgitation with an estimated PAP of 54 mmHg. c/w pulm hypertension Depression - Diabetes-Type II - Hypertensive urgency - Chronic back pain and chronic knee pain - Pulmonary congestion - improving pulmonary edema. Stable cardiomegaly. 03/09 Worst headache of life -No evidence for acute intracranial process.BY CT HEAD likely lisinopril-induced cough. d/c lisinopril, begin cozaar planning snf bed 26 min pt exam, chart review, > 50% of time spent with exam, chart review, pt care coordination History of Present Illness History of Present Illness SOA, headache Chest x-ray chronic lung changes I provide copy Blood pressure on the high side, heart rate is borderline bradycardia ABG pH 7.48, PCO2 34, O2 62 Plan: counseled on smoking, she claims she does not smoke anymore WBC 12.8 Continue breathing treatments, pulmo consulted HYdralazine prn PT/OT Needs to lose weight echo might need to change lisinopril to ARB sec to cough See orders Vitals Vitals Vital Signs Date Time Temp Pulse Resp B/P (MAP) Pulse Ox O2 Delivery O2 Flow Rate FiO2 03/10/19 06:42 97.7 51 20 153/67 (95) 94 Nasal Cannula 4.0 97.7 Physical Exam General: Alert, Oriented X3, Cooperative, No acute distress Heart: Regular rate, Normal S1 Lungs: Other (dimished BS) Abdomen: Normal bowel sounds, Soft, No tenderness, Other (obese) Extremities: Normal pulses, Other (1+ bilateral LE edema ) Skin: No breakdown, No significant lesion Labs LABS Laboratory Tests Test 03/09/19 11:19 03/09/19 20:00 03/10/19 03:00 03/10/19 07:41 Glucose (Fingerstick) 157 mg/dL (70-99) 178 mg/dL (70-99) 151 mg/dL (70-99) White Blood Count 11.2 x10^3/uL (4.0-11.0) Red Blood Count 4.22 x10^6/uL (3.50-5.40) Hemoglobin 12.9 g/dL (12.0-15.5) Hematocrit 38.6 % (36.0-47.0) Mean Corpuscular Volume 91 fL (79-100) Mean Corpuscular Hemoglobin 31 pg (25-35) Mean Corpuscular Hemoglobin Concent 33 g/dL (31-37) Red Cell Distribution Width 14.3 % (11.5-14.5) Platelet Count 216 x10^3/uL (140-400) Neutrophils (%) (Auto) 88 % (31-73) Lymphocytes (%) (Auto) 8 % (24-48) Monocytes (%) (Auto) 3 % (0-9) Eosinophils (%) (Auto) 0 % (0-3) Basophils (%) (Auto) 0 % (0-3) Neutrophils # (Auto) 9.9 x10^3/uL (1.8-7.7) Lymphocytes # (Auto) 0.9 x10^3/uL (1.0-4.8) Monocytes # (Auto) 0.4 x10^3/uL (0.0-1.1) Eosinophils # (Auto) 0.0 x10^3/uL (0.0-0.7) Basophils # (Auto) 0.0 x10^3/uL (0.0-0.2) Sodium Level 140 mmol/L (136-145) Potassium Level 4.3 mmol/L (3.5-5.1) Chloride Level 101 mmol/L (98-107) Carbon Dioxide Level 31 mmol/L (21-32) Anion Gap 8 (6-14) Blood Urea Nitrogen 26 mg/dL (7-20) Creatinine 1.1 mg/dL (0.6-1.0) Estimated GFR (Cockcroft-Gault) 49.4 BUN/Creatinine Ratio 24 (6-20) Glucose Level 163 mg/dL (70-99) Calcium Level 9.1 mg/dL (8.5-10.1) Total Bilirubin 0.4 mg/dL (0.2-1.0) Aspartate Amino Transf (AST/SGOT) 17 U/L (15-37) Alanine Aminotransferase (ALT/SGPT) 24 U/L (14-59) Alkaline Phosphatase 83 U/L (46-116) Total Protein 7.3 g/dL (6.4-8.2) Albumin 2.7 g/dL (3.4-5.0) Albumin/Globulin Ratio 0.6 (1.0-1.7) Triglycerides Level 176 mg/dL (0-150) Cholesterol Level 213 mg/dL (0-200) LDL Cholesterol, Calculated 130 mg/dL (0-100) VLDL Cholesterol, Calculated 35 mg/dL (0-40) Non-HDL Cholesterol Calculated 165 mg/dL (0-129) HDL Cholesterol 48 mg/dL (40-60) Cholesterol/HDL Ratio 4.4 Assessment and Plan Assessmemt and Plan Problems Medical Problems: (1) CHF exacerbation Status: Acute (2) Chronic back pain Status: Chronic (3) Chronic knee pain Status: Chronic (4) COPD (chronic obstructive pulmonary disease) Status: Acute (5) COPD exacerbation Status: Acute (6) Depression Status: Chronic (7) Dyspnea Status: Acute (8) Headache Status: Acute (9) Hypertensive urgency Status: Acute (10) Pulmonary congestion Status: Acute Comment Review of Relevant I have reviewed the following items sarath (where applicable) has been applied. Labs Laboratory Tests Test 03/08/19 08:05 03/08/19 11:57 03/08/19 17:50 03/08/19 20:35 White Blood Count 9.1 x10^3/uL (4.0-11.0) Red Blood Count 4.15 x10^6/uL (3.50-5.40) Hemoglobin 12.9 g/dL (12.0-15.5) Hematocrit 37.5 % (36.0-47.0) Mean Corpuscular Volume 90 fL (79-100) Mean Corpuscular Hemoglobin 31 pg (25-35) Mean Corpuscular Hemoglobin Concent 35 g/dL (31-37) Red Cell Distribution Width 14.3 % (11.5-14.5) Platelet Count 179 x10^3/uL (140-400) Neutrophils (%) (Auto) 87 % (31-73) Lymphocytes (%) (Auto) 11 % (24-48) Monocytes (%) (Auto) 2 % (0-9) Eosinophils (%) (Auto) 0 % (0-3) Basophils (%) (Auto) 0 % (0-3) Neutrophils # (Auto) 7.8 x10^3/uL (1.8-7.7) Lymphocytes # (Auto) 1.0 x10^3/uL (1.0-4.8) Monocytes # (Auto) 0.2 x10^3/uL (0.0-1.1) Eosinophils # (Auto) 0.0 x10^3/uL (0.0-0.7) Basophils # (Auto) 0.0 x10^3/uL (0.0-0.2) Segmented Neutrophils % 89 % (35-66) Lymphocytes % 9 % (24-48) Monocytes % 2 % (0-10) Platelet Estimate Adequate (ADEQUATE) Sodium Level 137 mmol/L (136-145) Potassium Level 3.8 mmol/L (3.5-5.1) Chloride Level 103 mmol/L (98-107) Carbon Dioxide Level 27 mmol/L (21-32) Anion Gap 7 (6-14) Blood Urea Nitrogen 12 mg/dL (7-20) Creatinine 0.9 mg/dL (0.6-1.0) Estimated GFR (Cockcroft-Gault) 62.3 Glucose Level 165 mg/dL (70-99) Lactic Acid Level 1.4 mmol/L (0.4-2.0) Calcium Level 8.4 mg/dL (8.5-10.1) Glucose (Fingerstick) 225 mg/dL (70-99) 209 mg/dL (70-99) Troponin I Quantitative < 0.017 ng/mL (0.000-0.055) Test 03/09/19 00:30 03/09/19 06:08 03/09/19 07:36 03/09/19 11:19 Troponin I Quantitative < 0.017 ng/mL (0.000-0.055) < 0.017 ng/mL (0.000-0.055) Magnesium Level 2.3 mg/dL (1.8-2.4) Thyroid Stimulating Hormone (TSH) 0.402 uIU/mL (0.358-3.74) Glucose (Fingerstick) 145 mg/dL (70-99) 157 mg/dL (70-99) Test 03/09/19 20:00 03/10/19 03:00 03/10/19 07:41 Glucose (Fingerstick) 178 mg/dL (70-99) 151 mg/dL (70-99) White Blood Count 11.2 x10^3/uL (4.0-11.0) Red Blood Count 4.22 x10^6/uL (3.50-5.40) Hemoglobin 12.9 g/dL (12.0-15.5) Hematocrit 38.6 % (36.0-47.0) Mean Corpuscular Volume 91 fL (79-100) Mean Corpuscular Hemoglobin 31 pg (25-35) Mean Corpuscular Hemoglobin Concent 33 g/dL (31-37) Red Cell Distribution Width 14.3 % (11.5-14.5) Platelet Count 216 x10^3/uL (140-400) Neutrophils (%) (Auto) 88 % (31-73) Lymphocytes (%) (Auto) 8 % (24-48) Monocytes (%) (Auto) 3 % (0-9) Eosinophils (%) (Auto) 0 % (0-3) Basophils (%) (Auto) 0 % (0-3) Neutrophils # (Auto) 9.9 x10^3/uL (1.8-7.7) Lymphocytes # (Auto) 0.9 x10^3/uL (1.0-4.8) Monocytes # (Auto) 0.4 x10^3/uL (0.0-1.1) Eosinophils # (Auto) 0.0 x10^3/uL (0.0-0.7) Basophils # (Auto) 0.0 x10^3/uL (0.0-0.2) Sodium Level 140 mmol/L (136-145) Potassium Level 4.3 mmol/L (3.5-5.1) Chloride Level 101 mmol/L (98-107) Carbon Dioxide Level 31 mmol/L (21-32) Anion Gap 8 (6-14) Blood Urea Nitrogen 26 mg/dL (7-20) Creatinine 1.1 mg/dL (0.6-1.0) Estimated GFR (Cockcroft-Gault) 49.4 BUN/Creatinine Ratio 24 (6-20) Glucose Level 163 mg/dL (70-99) Calcium Level 9.1 mg/dL (8.5-10.1) Total Bilirubin 0.4 mg/dL (0.2-1.0) Aspartate Amino Transf (AST/SGOT) 17 U/L (15-37) Alanine Aminotransferase (ALT/SGPT) 24 U/L (14-59) Alkaline Phosphatase 83 U/L (46-116) Total Protein 7.3 g/dL (6.4-8.2) Albumin 2.7 g/dL (3.4-5.0) Albumin/Globulin Ratio 0.6 (1.0-1.7) Triglycerides Level 176 mg/dL (0-150) Cholesterol Level 213 mg/dL (0-200) LDL Cholesterol, Calculated 130 mg/dL (0-100) VLDL Cholesterol, Calculated 35 mg/dL (0-40) Non-HDL Cholesterol Calculated 165 mg/dL (0-129) HDL Cholesterol 48 mg/dL (40-60) Cholesterol/HDL Ratio 4.4 Laboratory Tests Test 03/09/19 11:19 03/09/19 20:00 03/10/19 03:00 03/10/19 07:41 Glucose (Fingerstick) 157 mg/dL (70-99) 178 mg/dL (70-99) 151 mg/dL (70-99) White Blood Count 11.2 x10^3/uL (4.0-11.0) Red Blood Count 4.22 x10^6/uL (3.50-5.40) Hemoglobin 12.9 g/dL (12.0-15.5) Hematocrit 38.6 % (36.0-47.0) Mean Corpuscular Volume 91 fL (79-100) Mean Corpuscular Hemoglobin 31 pg (25-35) Mean Corpuscular Hemoglobin Concent 33 g/dL (31-37) Red Cell Distribution Width 14.3 % (11.5-14.5) Platelet Count 216 x10^3/uL (140-400) Neutrophils (%) (Auto) 88 % (31-73) Lymphocytes (%) (Auto) 8 % (24-48) Monocytes (%) (Auto) 3 % (0-9) Eosinophils (%) (Auto) 0 % (0-3) Basophils (%) (Auto) 0 % (0-3) Neutrophils # (Auto) 9.9 x10^3/uL (1.8-7.7) Lymphocytes # (Auto) 0.9 x10^3/uL (1.0-4.8) Monocytes # (Auto) 0.4 x10^3/uL (0.0-1.1) Eosinophils # (Auto) 0.0 x10^3/uL (0.0-0.7) Basophils # (Auto) 0.0 x10^3/uL (0.0-0.2) Sodium Level 140 mmol/L (136-145) Potassium Level 4.3 mmol/L (3.5-5.1) Chloride Level 101 mmol/L (98-107) Carbon Dioxide Level 31 mmol/L (21-32) Anion Gap 8 (6-14) Blood Urea Nitrogen 26 mg/dL (7-20) Creatinine 1.1 mg/dL (0.6-1.0) Estimated GFR (Cockcroft-Gault) 49.4 BUN/Creatinine Ratio 24 (6-20) Glucose Level 163 mg/dL (70-99) Calcium Level 9.1 mg/dL (8.5-10.1) Total Bilirubin 0.4 mg/dL (0.2-1.0) Aspartate Amino Transf (AST/SGOT) 17 U/L (15-37) Alanine Aminotransferase (ALT/SGPT) 24 U/L (14-59) Alkaline Phosphatase 83 U/L (46-116) Total Protein 7.3 g/dL (6.4-8.2) Albumin 2.7 g/dL (3.4-5.0) Albumin/Globulin Ratio 0.6 (1.0-1.7) Triglycerides Level 176 mg/dL (0-150) Cholesterol Level 213 mg/dL (0-200) LDL Cholesterol, Calculated 130 mg/dL (0-100) VLDL Cholesterol, Calculated 35 mg/dL (0-40) Non-HDL Cholesterol Calculated 165 mg/dL (0-129) HDL Cholesterol 48 mg/dL (40-60) Cholesterol/HDL Ratio 4.4 Microbiology 03/07/19 Blood Culture - Preliminary, Resulted NO GROWTH AFTER 2 DAYS Medications Current Medications Albuterol/ Ipratropium (Duoneb) 3 ml 1X ONCE NEB Last administered on 03/07/19at 14:06; Start 03/07/19 at 14:00; Stop 03/07/19 at 14:01; Status DC Albuterol Sulfate (Ventolin Neb Soln) 2.5 mg PRN Q2HRS PRN INH shortness of breath Last administered on 03/07/19 17:17; Start 03/07/19 at 17:00 Azelastine HCl (Astelin) 2 spray BID NS Last administered on 03/09/19 21:29; Start 03/07/19 at 21:00 Cyclobenzaprine HCl (Flexeril) 10 mg TID PO Last administered on 03/09/19 21:31; Start 03/07/19 at 21:00 Folic Acid (Folic Acid) 1 mg DAILY PO Last administered on 03/09/19 11:38; Start 03/08/19 at 09:00 Gabapentin (Neurontin) 300 mg TID PO Last administered on 03/09/19 21:30; Start 03/07/19 at 21:00 Lisinopril (Prinivil) 40 mg DAILY PO Last administered on 03/08/19 08:53; Start 03/08/19 at 09:00; Stop 03/09/19 at 11:17; Status DC Montelukast Sodium (Singulair) 10 mg DAILY PO Last administered on 03/09/19 11:37; Start 03/08/19 at 09:00 Pantoprazole Sodium (Protonix) 40 mg DAILYAC PO Last administered on 03/10/19 05:55; Start 03/08/19 at 07:30 Potassium Chloride (Klor-Con) 20 meq [id number] PO Last administered on 03/09/19 11:40; Start 03/08/19 at 08:00 Albuterol/ Ipratropium (Duoneb) 3 ml RTQID NEB Last administered on 03/10/19 08:01; Start 03/07/19 at 20:00 Doxycycline Hyclate 100 mg/ Dextrose 100 ml @ 50 mls/hr Q12HR IV Last administered on 03/09/19 11:35; Start 03/07/19 at 21:00; Stop 03/09/19 at 15:45; Status DC Budesonide (Pulmicort) 0.5 mg RTBID NEB Last administered on 03/10/19 08:01; Start 03/07/19 at 20:00 Labetalol HCl (Normodyne Iv Push) 10 mg PRN Q2HR PRN IVP HYPERTENSION Last administered on 03/10/19 06:02; Start 03/07/19 at 17:00 Methylprednisolone Sodium Succinate (SOLU-Medrol 40MG VIAL) 40 mg Q8HRS IV Last administered on 03/10/19 05:55; Start 03/07/19 at 20:00 Enoxaparin Sodium (Lovenox 40mg Syringe) 40 mg Q24H SQ Last administered on 03/08/19 21:13; Start 03/07/19 at 21:00; Stop 03/09/19 at 15:49; Status DC Magnesium Sulfate/ Dextrose 100 ml @ 25 mls/hr 1X ONCE IV Last administered on 03/07/19 17:59; Start 03/07/19 at 18:00; Stop 03/07/19 at 21:59; Status DC Epinephrine HCl (Adrenalin) 0.3 mg PRN Q5MIN PRN SQ ALLERGIC REACTION, SEVERE; Start 03/07/19 at 18:15 Diphenhydramine HCl (Benadryl) 25 mg PRN Q6HRS PRN IV ITCHING, ALLERGIC REACTION; Start 03/07/19 at 18:15 Oxycodone/ Acetaminophen (Percocet 5/325) 1 tab PRN Q6HRS PRN PO PAIN Last administered on 03/09/19 12:39; Start 03/07/19 at 20:00 Fluoxetine HCl (PROzac) 40 mg DAILY PO Last administered on 03/09/19 11:37; Start 03/08/19 at 09:00 Furosemide (Lasix) 40 mg DAILY IVP Last administered on 03/09/19 11:36; Start 03/08/19 at 09:00 Nicotine (Nicoderm Cq 21mg) 1 patch PRN DAILY PRN TD SMOKING CESSATION; Start 03/08/19 at 08:30 Ondansetron HCl (Zofran) 4 mg PRN Q6HRS PRN IV NAUSEA/VOMITING; Start 03/08/19 at 08:30 Benzonatate (Tessalon Perle) 100 mg [id number] PO Last administered on 03/09/19 21:31; Start 03/08/19 at 09:00 Non-Formulary Medication (Empagliflozin (Jardiance)) 10 mg DAILY PO Last administered on 03/09/19 11:34; Start 03/08/19 at 14:00 Lactobacillus Rhamnosus (Culturelle) 1 cap BID PO Last administered on 03/09/19at 21:29; Start 03/08/19 at 21:00 Losartan Potassium (Cozaar) 50 mg DAILY PO ; Start 03/10/19 at 09:00 Doxycycline Hyclate (Vibra-Tab) 100 mg BID PO Last administered on 03/09/19at 21:31; Start 03/09/19 at 21:00 Enoxaparin Sodium (Lovenox 40mg Syringe) 40 mg Q12H SQ Last administered on 03/09/19at 21:31; Start 03/09/19 at 21:00 Furosemide (Lasix) 40 mg 1X ONCE IVP Last administered on 03/09/19at 16:32; Start 03/09/19 at 16:00; Stop 03/09/19 at 16:01; Status DC Potassium Chloride (Klor-Con) 20 meq 1X ONCE PO Last administered on 03/09/19at 16:39; Start 03/09/19 at 16:00; Stop 03/09/19 at 16:01; Status DC Active Scripts Active Reported Jardiance (Empagliflozin) 10 Mg Tablet 10 Mg PO DAILY Celebrex (Celecoxib) 200 Mg Capsule 200 Mg PO BID PRN 30 Days Pantoprazole Sodium (Pantoprazole Sodium) 40 Mg Tablet.dr 1 Tab PO DAILY Advair 500-50 Diskus (Fluticasone/Salmeterol) 1 Each Disk.w.dev 1 Puff IH BID Dimenhydrinate 50 Mg Tablet 50 Mg PO Colace Clear (Docusate Sodium) 50 Mg Capsule 50 Mg PO Zofran (Ondansetron Hcl) 8 Mg Tablet 1 Tab PO Q8HRS Gabapentin (Gabapentin) 300 Mg Capsule 1 Cap PO TID Prozac (Fluoxetine Hcl) 40 Mg Capsule 1 Cap PO DAILY Oxycontin (Oxycodone HCl) 10 Mg Tab.er.12h 1 Tab PO BID Lisinopril 40 Mg Tablet 1 Tab PO DAILY Pravastatin Sodium 80 Mg Tablet 1 Tab PO DAILY Folic Acid 1 Mg Tablet 1 Tab PO DAILY Proair Hfa Inhaler (Albuterol Sulfate) 8.5 Gm Hfa.aer.ad 2 Puff IH PRN Q4-6HRS Cyclobenzaprine Hcl 10 Mg Tablet 1 Tab PO TID Montelukast Sodium Tablet (Montelukast Sodium) 10 Mg Tablet 1 Tab PO DAILY K-Tab ER (Potassium Chloride) 20 Meq Tablet.er 20 Meq PO DAILY Azelastine Hcl 137 Mcg/0.137 Ml Moriarty.pump 2 Moriarty NS BID [atarax] Flonase Allergy Relief (Fluticasone Propionate) 9.9 Ml Moriarty.susp 9.9 Ml NS Vitals/I & O Vital Sign - Last 24 Hours 03/09/19 03/09/19 03/09/19 03/09/19 11:00 11:25 12:39 13:39 Temp 98.2 98.2 Pulse 59 Resp 22 B/P (MAP) 148/64 (92) Pulse Ox 95 94 94 94 O2 Delivery Nasal Cannula Nasal Cannula Nasal Cannula Nasal Cannula O2 Flow Rate 4.0 4.0 4.0 4.0 03/09/19 03/09/19 03/09/19 03/09/19 15:13 15:20 19:15 19:25 Temp 98.3 98.1 98.3 98.1 Pulse 59 59 Resp 22 18 B/P (MAP) 156/52 (86) 161/63 (95) Pulse Ox 95 94 92 95 O2 Delivery Nasal Cannula Nasal Cannula Nasal Cannula Nasal Cannula O2 Flow Rate 4.0 4.0 4.0 4.0 03/09/19 03/09/19 03/09/19 03/10/19 19:25 20:00 23:38 03:43 Temp 98.9 97.4 98.9 97.4 Pulse 53 55 Resp 18 20 B/P (MAP) 164/64 (97) 189/87 (121) Pulse Ox 95 96 96 O2 Delivery Nasal Cannula Nasal Cannula Nasal Cannula Nasal Cannula O2 Flow Rate 4.0 4.0 4.0 4.0 03/10/19 03/10/19 06:02 06:42 Temp 97.7 97.7 Pulse 54 51 Resp 20 B/P (MAP) 181/74 153/67 (95) Pulse Ox 94 O2 Delivery Nasal Cannula O2 Flow Rate 4.0 l Intake and Output 03/09/19 03/09/19 03/10/19 14:59 22:59 06:59 Intake Total 300 ml 550 ml 380 ml Balance 300 ml 550 ml 380 ml BRENDA MILLER MD Mar 10, 2019 08:03
[2019-03-10] MEDS: FOLIC ACID 1 MG TABLET. PO SCH (08:16)
[2019-03-10] MEDS: AZELASTINE NASAL SPRAY 30ML BOTTLE. NS SCH ×2 (08:16→20:05)
[2019-03-10] MEDS: LACTOBACILLUS RHAMNOSUS GG 1 CAPSULE. PO SCH ×2 (08:18→20:05)
[2019-03-10] MEDS: FUROSEMIDE 40 MG/4 ML VIAL. IVP SCH (08:19)
[2019-03-10] MEDS: ENOXAPARIN 40 MG/0.4 ML SYRINGE. SQ SCH ×2 (08:20→20:05)
[2019-03-10] MEDS: BENZONATATE 100 MG CAPSULE. PO SCH ×3 (08:20→20:05)
[2019-03-10] MEDS: FLUoxetine HCL 20 MG CAPSULE PO SCH (08:20)
[2019-03-10] MEDS: CYCLOBENZAPRINE 10 MG TABLET. PO SCH ×3 (08:20→20:05)
[2019-03-10] MEDS: GABAPENTIN 300 MG CAPSULE. PO SCH ×3 (08:20→20:05)
[2019-03-10] MEDS: POTASSIUM CHLORIDE 20 MEQ TABLET.ER. PO SCH (08:21)
[2019-03-10] MEDS: MONTELUKAST SODIUM 10 MG TABLET. PO SCH (08:22)
[2019-03-10] MEDS ORDERED: LOSARTAN POTASSIUM 50 MG TABLET. PO SCH (09:00)
--- NOTE | 2019-03-10 10:08 | PDOC ---
PULMONARY PROGRESS NOTES Subjective feels much better no soa Vitals Vital Signs Date Time Temp Pulse Resp B/P (MAP) Pulse Ox O2 Delivery O2 Flow Rate FiO2 03/10/19 08:18 51 153/67 03/10/19 08:04 98 Nasal Cannula 4.0 03/10/19 06:42 97.7 20 97.7 ROS: No Chest Pain, No Abdominal Pain General: Alert, No acute distress Lungs: Other (dimished BS) Cardiovascular: S1 Abdomen: Soft Neuro Exam: Alert Extremities: No Edema Skin: Warm Labs Laboratory Tests Test 03/08/19 11:57 03/08/19 17:50 03/08/19 20:35 03/09/19 00:30 Glucose (Fingerstick) 225 mg/dL (70-99) 209 mg/dL (70-99) Troponin I Quantitative < 0.017 ng/mL (0.000-0.055) < 0.017 ng/mL (0.000-0.055) Test 03/09/19 06:08 03/09/19 07:36 03/09/19 11:19 03/09/19 20:00 Magnesium Level 2.3 mg/dL (1.8-2.4) Troponin I Quantitative < 0.017 ng/mL (0.000-0.055) Thyroid Stimulating Hormone (TSH) 0.402 uIU/mL (0.358-3.74) Glucose (Fingerstick) 145 mg/dL (70-99) 157 mg/dL (70-99) 178 mg/dL (70-99) Test 03/10/19 03:00 03/10/19 07:41 White Blood Count 11.2 x10^3/uL (4.0-11.0) Red Blood Count 4.22 x10^6/uL (3.50-5.40) Hemoglobin 12.9 g/dL (12.0-15.5) Hematocrit 38.6 % (36.0-47.0) Mean Corpuscular Volume 91 fL (79-100) Mean Corpuscular Hemoglobin 31 pg (25-35) Mean Corpuscular Hemoglobin Concent 33 g/dL (31-37) Red Cell Distribution Width 14.3 % (11.5-14.5) Platelet Count 216 x10^3/uL (140-400) Neutrophils (%) (Auto) 88 % (31-73) Lymphocytes (%) (Auto) 8 % (24-48) Monocytes (%) (Auto) 3 % (0-9) Eosinophils (%) (Auto) 0 % (0-3) Basophils (%) (Auto) 0 % (0-3) Neutrophils # (Auto) 9.9 x10^3/uL (1.8-7.7) Lymphocytes # (Auto) 0.9 x10^3/uL (1.0-4.8) Monocytes # (Auto) 0.4 x10^3/uL (0.0-1.1) Eosinophils # (Auto) 0.0 x10^3/uL (0.0-0.7) Basophils # (Auto) 0.0 x10^3/uL (0.0-0.2) Sodium Level 140 mmol/L (136-145) Potassium Level 4.3 mmol/L (3.5-5.1) Chloride Level 101 mmol/L (98-107) Carbon Dioxide Level 31 mmol/L (21-32) Anion Gap 8 (6-14) Blood Urea Nitrogen 26 mg/dL (7-20) Creatinine 1.1 mg/dL (0.6-1.0) Estimated GFR (Cockcroft-Gault) 49.4 BUN/Creatinine Ratio 24 (6-20) Glucose Level 163 mg/dL (70-99) Calcium Level 9.1 mg/dL (8.5-10.1) Total Bilirubin 0.4 mg/dL (0.2-1.0) Aspartate Amino Transf (AST/SGOT) 17 U/L (15-37) Alanine Aminotransferase (ALT/SGPT) 24 U/L (14-59) Alkaline Phosphatase 83 U/L (46-116) Total Protein 7.3 g/dL (6.4-8.2) Albumin 2.7 g/dL (3.4-5.0) Albumin/Globulin Ratio 0.6 (1.0-1.7) Triglycerides Level 176 mg/dL (0-150) Cholesterol Level 213 mg/dL (0-200) LDL Cholesterol, Calculated 130 mg/dL (0-100) VLDL Cholesterol, Calculated 35 mg/dL (0-40) Non-HDL Cholesterol Calculated 165 mg/dL (0-129) HDL Cholesterol 48 mg/dL (40-60) Cholesterol/HDL Ratio 4.4 Glucose (Fingerstick) 151 mg/dL (70-99) Laboratory Tests Test 03/09/19 11:19 03/09/19 20:00 03/10/19 03:00 03/10/19 07:41 Glucose (Fingerstick) 157 mg/dL (70-99) 178 mg/dL (70-99) 151 mg/dL (70-99) White Blood Count 11.2 x10^3/uL (4.0-11.0) Red Blood Count 4.22 x10^6/uL (3.50-5.40) Hemoglobin 12.9 g/dL (12.0-15.5) Hematocrit 38.6 % (36.0-47.0) Mean Corpuscular Volume 91 fL (79-100) Mean Corpuscular Hemoglobin 31 pg (25-35) Mean Corpuscular Hemoglobin Concent 33 g/dL (31-37) Red Cell Distribution Width 14.3 % (11.5-14.5) Platelet Count 216 x10^3/uL (140-400) Neutrophils (%) (Auto) 88 % (31-73) Lymphocytes (%) (Auto) 8 % (24-48) Monocytes (%) (Auto) 3 % (0-9) Eosinophils (%) (Auto) 0 % (0-3) Basophils (%) (Auto) 0 % (0-3) Neutrophils # (Auto) 9.9 x10^3/uL (1.8-7.7) Lymphocytes # (Auto) 0.9 x10^3/uL (1.0-4.8) Monocytes # (Auto) 0.4 x10^3/uL (0.0-1.1) Eosinophils # (Auto) 0.0 x10^3/uL (0.0-0.7) Basophils # (Auto) 0.0 x10^3/uL (0.0-0.2) Sodium Level 140 mmol/L (136-145) Potassium Level 4.3 mmol/L (3.5-5.1) Chloride Level 101 mmol/L (98-107) Carbon Dioxide Level 31 mmol/L (21-32) Anion Gap 8 (6-14) Blood Urea Nitrogen 26 mg/dL (7-20) Creatinine 1.1 mg/dL (0.6-1.0) Estimated GFR (Cockcroft-Gault) 49.4 BUN/Creatinine Ratio 24 (6-20) Glucose Level 163 mg/dL (70-99) Calcium Level 9.1 mg/dL (8.5-10.1) Total Bilirubin 0.4 mg/dL (0.2-1.0) Aspartate Amino Transf (AST/SGOT) 17 U/L (15-37) Alanine Aminotransferase (ALT/SGPT) 24 U/L (14-59) Alkaline Phosphatase 83 U/L (46-116) Total Protein 7.3 g/dL (6.4-8.2) Albumin 2.7 g/dL (3.4-5.0) Albumin/Globulin Ratio 0.6 (1.0-1.7) Triglycerides Level 176 mg/dL (0-150) Cholesterol Level 213 mg/dL (0-200) LDL Cholesterol, Calculated 130 mg/dL (0-100) VLDL Cholesterol, Calculated 35 mg/dL (0-40) Non-HDL Cholesterol Calculated 165 mg/dL (0-129) HDL Cholesterol 48 mg/dL (40-60) Cholesterol/HDL Ratio 4.4 Medications Active Scripts Medications Dose Route/Sig Max Daily Dose Days Date Category Jardiance (Empagliflozin) 10 Mg Tablet 10 Mg PO DAILY 03/08/19 Reported Celebrex (Celecoxib) 200 Mg Capsule 200 Mg PO BID PRN 30 12/02/14 Reported Pantoprazole Sodium (Pantoprazole Sodium) 40 Mg Tablet.dr 1 Tab PO DAILY 11/29/14 Reported Advair 500-50 Diskus (Fluticasone/Salmeterol) 1 Each Disk.w.dev 1 Puff IH BID 11/29/14 Reported Dimenhydrinate 50 Mg Tablet 50 Mg PO 11/29/14 Reported Colace Clear (Docusate Sodium) 50 Mg Capsule 50 Mg PO 11/29/14 Reported Zofran (Ondansetron Hcl) 8 Mg Tablet 1 Tab PO Q8HRS 11/29/14 Reported Gabapentin (Gabapentin) 300 Mg Capsule 1 Cap PO TID 11/29/14 Reported Prozac (Fluoxetine Hcl) 40 Mg Capsule 1 Cap PO DAILY 11/29/14 Reported Oxycontin (Oxycodone HCl) 10 Mg Tab.er.12h 1 Tab PO BID 11/29/14 Reported Lisinopril 40 Mg Tablet 1 Tab PO DAILY 11/29/14 Reported Pravastatin Sodium 80 Mg Tablet 1 Tab PO DAILY 11/29/14 Reported Folic Acid 1 Mg Tablet 1 Tab PO DAILY 11/29/14 Reported Proair Hfa Inhaler (Albuterol Sulfate) 8.5 Gm Hfa.aer.ad 2 Puff IH PRN Q4-6HRS 11/29/14 Reported Cyclobenzaprine Hcl 10 Mg Tablet 1 Tab PO TID 11/29/14 Reported Montelukast Sodium Tablet (Montelukast Sodium) 10 Mg Tablet 1 Tab PO DAILY 11/29/14 Reported K-Tab ER (Potassium Chloride) 20 Meq Tablet.er 20 Meq PO DAILY 11/29/14 Reported Azelastine Hcl 137 Mcg/0.137 Ml [place].pump 2 [place] NS BID 11/29/14 Reported [atarax] 11/29/14 Reported Flonase Allergy Relief (Fluticasone Propionate) 9.9 Ml [place].susp 9.9 Ml NS 11/29/14 Reported Impression . 1. Dyspnea with acute hypoxic respiratory failure along with ankle edema, likely related to congestive heart failure. Likely acute diastolic HF, EF normal 2. Abnormal chest x-ray with bilateral interstitial infiltrates, likely congestive heart failure. Good response to diuretics. 3. Chronic cough, which has been present for the last 6 months and most likely lisinopril-induced cough. 4. Morbid obesity. 5. Underlying obstructive sleep apnea with good compliance to CPAP. 6. Chronic respiratory failure with home oxygen at nighttime and p.r.n. during the day. Plan . 1. Continue with present oxygen, keep saturation 92% and above. 2. Continue diuresis and see the response to treatment. 3. she has made clinical improvement. 4. monitor renal function. 5. Continue bronchodilators. 6. taper steroids 7. can dc oral antibiotics 8. discontinued lisinopril and changed to cozar. 9. echocardiogram.reviewed 10. Discussed with RN/ Pt says she may have cath per cardiology THOMAS CORTES MD Mar 10, 2019 10:08
[2019-03-10] MEDS: DOXYCYCLINE HYCLATE 100 MG TABLET PO SCH ×2 (10:11→20:05)
[2019-03-10] MEDS: oxyCODONE/APAP 5/325 1 TAB TABLET PO PRN ×3 (10:11→20:06)
[2019-03-10] MEDS ORDERED: LOSARTAN POTASSIUM 50 MG TABLET. PO ONE (15:15)
--- NOTE | 2019-03-10 15:16 | PDOC ---
CARDIO Progress Notes Date and Time Date of Service 03/10/2019 Time of Evaluation 1330 Subjective Subjective: No Chest Pain, No shortness of breath, No Palpitations Vitals Vitals Vital Signs Date Time Temp Pulse Resp B/P (MAP) Pulse Ox O2 Delivery O2 Flow Rate FiO2 03/10/19 13:33 48 168/48 (88) 03/10/19 11:19 100 Nasal Cannula 4.0 03/10/19 11:05 97.7 20 97.7 Weight Weight [ ] Input and Output Intake and Output Intake and Output 03/10/19 07:00 Intake Total 1230 ml Balance 1230 ml Intake Oral 1230 ml # Voids 8 Laboratory Labs Laboratory Tests Test 03/09/19 20:00 03/10/19 03:00 03/10/19 07:41 03/10/19 11:13 Glucose (Fingerstick) 178 mg/dL (70-99) 151 mg/dL (70-99) 161 mg/dL (70-99) White Blood Count 11.2 x10^3/uL (4.0-11.0) Red Blood Count 4.22 x10^6/uL (3.50-5.40) Hemoglobin 12.9 g/dL (12.0-15.5) Hematocrit 38.6 % (36.0-47.0) Mean Corpuscular Volume 91 fL (79-100) Mean Corpuscular Hemoglobin 31 pg (25-35) Mean Corpuscular Hemoglobin Concent 33 g/dL (31-37) Red Cell Distribution Width 14.3 % (11.5-14.5) Platelet Count 216 x10^3/uL (140-400) Neutrophils (%) (Auto) 88 % (31-73) Lymphocytes (%) (Auto) 8 % (24-48) Monocytes (%) (Auto) 3 % (0-9) Eosinophils (%) (Auto) 0 % (0-3) Basophils (%) (Auto) 0 % (0-3) Neutrophils # (Auto) 9.9 x10^3/uL (1.8-7.7) Lymphocytes # (Auto) 0.9 x10^3/uL (1.0-4.8) Monocytes # (Auto) 0.4 x10^3/uL (0.0-1.1) Eosinophils # (Auto) 0.0 x10^3/uL (0.0-0.7) Basophils # (Auto) 0.0 x10^3/uL (0.0-0.2) Sodium Level 140 mmol/L (136-145) Potassium Level 4.3 mmol/L (3.5-5.1) Chloride Level 101 mmol/L (98-107) Carbon Dioxide Level 31 mmol/L (21-32) Anion Gap 8 (6-14) Blood Urea Nitrogen 26 mg/dL (7-20) Creatinine 1.1 mg/dL (0.6-1.0) Estimated GFR (Cockcroft-Gault) 49.4 BUN/Creatinine Ratio 24 (6-20) Glucose Level 163 mg/dL (70-99) Calcium Level 9.1 mg/dL (8.5-10.1) Total Bilirubin 0.4 mg/dL (0.2-1.0) Aspartate Amino Transf (AST/SGOT) 17 U/L (15-37) Alanine Aminotransferase (ALT/SGPT) 24 U/L (14-59) Alkaline Phosphatase 83 U/L (46-116) Total Protein 7.3 g/dL (6.4-8.2) Albumin 2.7 g/dL (3.4-5.0) Albumin/Globulin Ratio 0.6 (1.0-1.7) Triglycerides Level 176 mg/dL (0-150) Cholesterol Level 213 mg/dL (0-200) LDL Cholesterol, Calculated 130 mg/dL (0-100) VLDL Cholesterol, Calculated 35 mg/dL (0-40) Non-HDL Cholesterol Calculated 165 mg/dL (0-129) HDL Cholesterol 48 mg/dL (40-60) Cholesterol/HDL Ratio 4.4 Microbiology Micro Microbiology 03/07/19 Blood Culture - Preliminary, Resulted NO GROWTH AFTER 3 DAYS Physical Exam HEENT: Neck Supple W Full Motion Chest: Symmetric LUNGS: Clear to Auscultation Heart: S1S2, RRR (SR) Abdomen: Soft N/T Extremities: No Calf Tenderness, Other (trace LE edema) Neurology: alert, oriented, follow commands Assessment Assessment 1. Acute hypoxic respiratory failure 2. Acute on chronic diastolic CHF: compensated 3. Atypical CP: possibly from bronchospasm 4. Hypertension; labile 5. Asthma, JAUN with CPAP 6. Diabetes, II 7. Hyperlipidemia 8. Possible ACEi induced cough Recommendations 1. Change to lasix PO tomorrow. Increase losartan. 2. If BP remains labile then will start norvasc. No AV olive blocking agents with damian episodes. 3. Allergy to lipitor (anaphylaxis). Allergy to NSAIDs (anaphylaxis) Possibly a good candidate for [id number] 4. Follow up in 4 weeks. Consider outpt stress test given her CV risk factors. CARL FERRER MEDICAL FILE CLERK Mar 10, 2019 15:16
[2019-03-11 03:24] VITALS: BP 153/48
[2019-03-11 07:00] VITALS: BP 155/51
[2019-03-11] MEDS: IPRATRPIUM/ALBUTEROL 0.5/2.5MG 3 ML NEBU. NEB SCH ×3 (07:52→15:18)
[2019-03-11] MEDS: BUDESONIDE 0.5 MG/2 ML NEBU. NEB SCH (07:52)
[2019-03-11] MEDS ORDERED: LOSA-73 PO (08:15)
[2019-03-11] MEDS ORDERED: FURO40TA4 PO (08:15)
[2019-03-11] MEDS ORDERED: PRED-220 PO (08:15)
[2019-03-11] MEDS ORDERED: DOXY100T PO (08:15)
[2019-03-11] MEDS ORDERED: OXYC1TAB15 PO (08:15)
[2019-03-11] MEDS ORDERED: IPRA3AMP29 NEB (08:15)
[2019-03-11] MEDS ORDERED: Nicotine 21MG TD (08:15)
[2019-03-11] MEDS ORDERED: BENZ-8 PO (08:15)
--- NOTE | 2019-03-11 08:16 | SNU/HH DC ---
DISCHARGE ORDERS DISCHARGE INFORMATION: DISCHARGE DATE: Mar 11, 2019 FINAL DIAGNOSIS Problems Medical Problems: (1) Acute on chronic diastolic CHF (congestive heart failure) Status: Acute (2) Acute respiratory failure with hypoxia Status: Acute (3) Asthma Status: Chronic (4) CHF exacerbation Status: Acute (5) Chronic back pain Status: Chronic (6) Chronic knee pain Status: Chronic (7) COPD (chronic obstructive pulmonary disease) Status: Acute (8) COPD exacerbation Status: Acute (9) Depression Status: Chronic (10) DM type 2 (diabetes mellitus, type 2) Status: Chronic (11) Dyspnea Status: Acute (12) Headache Status: Acute (13) HTN (hypertension) Status: Chronic (14) Hyperlipidemia Status: Chronic (15) Hypertensive urgency Status: Acute (16) Pulmonary congestion Status: Acute CONDITION ON DISCHARGE: Stable CODE STATUS: Code Status: Full FPC: SNF STAY <30 DAYS: Yes HOSPICE: HOSPICE: No HOSPICE EVAL & TREAT: No LTAC: ADMIT TO LTAC: No POST DISCHARGE ORDERS: ACTIVITY ORDERS: No restrictions, Activity as tolerated WEIGHT BEARING STATUS: As tolerated DIET AFTER DISCHARGE: Cardiac CHECKS AFTER DISCHARGE: CHECKS AFTER DISCHARGE: Check blood press - daily TREATMENT/EQUIPMENT ORDERS: ADAPTIVE EQUIPMENT NEEDED: None RESPIRATORY EQUIPMENT NEEDED: Oxygen Physical Therapy For: Evalulation/Treatment Occupational Therapy For: Evaluation/Treatment DISCHARGE MEDICATIONS: Home Meds Active Scripts [Nicotine 21MG] 1 PATCH PATCH No Conflict Check, 1 PATCH TD PRN DAILY PRN for SMOKING CESSATION, #14 Prov:CHIP DELUCA MD 03/11/19 Prednisone (PREDNISONE ) 10 Mg Tablet, 20 MG PO DAILY for cough, #3 TAB Prov:CHIP DELUCA MD 03/11/19 Benzonatate (BENZONATATE) 100 Mg Capsule, 100 MG PO [id number] for cough, #21 CAP Prov:CHIP DELUCA MD 03/11/19 Furosemide (FUROSEMIDE) 40 Mg Tablet, 40 MG PO DAILY for diastolic heart failure, #30 TAB Prov:CHIP DELUCA MD 03/11/19 Oxycodone/Apap 5-325 (PERCOCET 5-325 MG TABLET ) 1 Each Tablet, 1 TAB PO PRN Q6HRS PRN for PAIN, #30 TAB Prov:CHIP DELUCA MD 7/26/19 Losartan Potassium (COZAAR ) 50 Mg Tablet, 100 MG PO DAILY for htn, #60 TAB Prov:CHIP DELUCA MD 03/11/19 Doxycycline Hyclate (DOXYCYCLINE HYCLATE) 100 Mg Tablet, 100 MG PO BID for bronchitis for 7 Days, #14 TAB Prov:CHIP DELUCA MD 03/11/19 Ipratropium/Albuterol Sulfate (DUONEB 0.5-3(2.5) MG/3 ML) 3 Ml Ampul.neb, 3 ML NEB RTQID for soa, #60 EACH Prov:CHIP DELUCA MD 03/11/19 Reported Medications Empagliflozin (Jardiance) 10 Mg Tablet, 10 MG PO DAILY for HIGH BLOOD GLUCOSE, TAB 03/08/19 Celecoxib (CELEBREX) 200 Mg Capsule, 200 MG PO BID PRN for PAIN for 30 Days, CAP 0 Refills 12/02/14 Pantoprazole Sodium (PANTOPRAZOLE SODIUM ) 40 Mg Tablet.dr, 1 TAB PO DAILY, #30 TAB 3 Refills 11/29/14 Fluticasone/Salmeterol (ADVAIR 500-50 DISKUS) 1 Each Disk.w.dev, 1 PUFF IH BID, #1 INHALER 5 Refills 11/29/14 Dimenhydrinate (DIMENHYDRINATE) 50 Mg Tablet, 50 MG PO 11/29/14 Docusate Sodium (Colace Clear) 50 Mg Capsule, 50 MG PO 11/29/14 Ondansetron Hcl (ZOFRAN) 8 Mg Tablet, 1 TAB PO Q8HRS, #30 TAB 1 Refill 11/29/14 Gabapentin (GABAPENTIN ) 300 Mg Capsule, 1 CAP PO TID, #90 CAP 5 Refills 11/29/14 Fluoxetine Hcl (PROZAC) 40 Mg Capsule, 1 CAP PO DAILY, #30 CAP 3 Refills 11/29/14 Oxycodone Hcl (OXYCONTIN ) 10 Mg Tab.er.12h, 1 TAB PO BID, #60 TAB 11/29/14 Pravastatin Sodium (PRAVASTATIN SODIUM) 80 Mg Tablet, 1 TAB PO DAILY, #30 TAB 5 Refills 11/29/14 Folic Acid (FOLIC ACID) 1 Mg Tablet, 1 TAB PO DAILY, #90 TAB 1 Refill 11/29/14 Albuterol Sulfate (PROAIR HFA INHALER) 8.5 Gm Hfa.aer.ad, 2 PUFF IH PRN Q4-6HRS, #1 INHALER 11/29/14 Cyclobenzaprine Hcl (CYCLOBENZAPRINE HCL) 10 Mg Tablet, 1 TAB PO TID, #90 TAB 11/29/14 Montelukast Sodium (MONTELUKAST SODIUM TABLET ) 10 Mg Tablet, 1 TAB PO DAILY, #30 TAB 5 Refills 11/29/14 Potassium Chloride (K-Tab ER) 20 Meq Tablet.er, 20 MEQ PO DAILY, TAB.SR 11/29/14 Azelastine Hcl (AZELASTINE HCL) 137 Mcg/0.137 Ml [place].pump, 2 SPRAY NS BID, #90 ML 3 Refills 11/29/14 Fluticasone Propionate (Flonase Allergy Relief) 9.9 Ml [place].susp, 9.9 ML NS 11/29/14 Discontinued Reported Medications Lisinopril (LISINOPRIL) 40 Mg Tablet, 1 TAB PO DAILY, #30 TAB 5 Refills 11/29/14 [atarax] No Conflict Check 11/29/14 CHIP DELUCA MD Mar 11, 2019 08:16
[2019-03-11] MEDS ORDERED: FUROSEMIDE 40 MG TABLET. PO SCH (09:00)
[2019-03-11] MEDS ORDERED: LOSARTAN POTASSIUM 50 MG TABLET. PO SCH (09:00)
[2019-03-11] MEDS ORDERED: predniSONE 10 MG TABLET PO SCH (09:00)
[2019-03-11] MEDS: AZELASTINE NASAL SPRAY 30ML BOTTLE. NS SCH (09:02)
[2019-03-11] MEDS: POTASSIUM CHLORIDE 20 MEQ TABLET.ER. PO SCH (09:03)
[2019-03-11] MEDS: ENOXAPARIN 40 MG/0.4 ML SYRINGE. SQ SCH (09:03)
[2019-03-11] MEDS: GABAPENTIN 300 MG CAPSULE. PO SCH ×2 (09:04→15:03)
[2019-03-11] MEDS: DOXYCYCLINE HYCLATE 100 MG TABLET PO SCH (09:05)
[2019-03-11] MEDS: BENZONATATE 100 MG CAPSULE. PO SCH ×2 (09:05→15:03)
[2019-03-11] MEDS: MONTELUKAST SODIUM 10 MG TABLET. PO SCH (09:05)
[2019-03-11] MEDS: LACTOBACILLUS RHAMNOSUS GG 1 CAPSULE. PO SCH (09:05)
[2019-03-11] MEDS: PANTOPRAZOLE 40 MG TABLET.DR. PO SCH (09:05)
[2019-03-11] MEDS: FLUoxetine HCL 20 MG CAPSULE PO SCH (09:05)
[2019-03-11] MEDS: CYCLOBENZAPRINE 10 MG TABLET. PO SCH ×2 (09:05→15:03)
[2019-03-11] MEDS: FOLIC ACID 1 MG TABLET. PO SCH (09:05)
--- NOTE | 2019-03-11 09:33 | NUR ---
SS following up with discharge planning. Discharge orders received. SS phoned and faxed discharge orders and updated clinical to [facility], ; fax [phone]. [place] reported that they are still pending insurance authorization at this time. SS will await insurance authorization and will proceed accordingly with discharge.
--- NOTE | 2019-03-11 10:02 | PDOC ---
PULMONARY PROGRESS NOTES Subjective feels much better no soa Vitals Vital Signs Date Time Temp Pulse Resp B/P (MAP) Pulse Ox O2 Delivery O2 Flow Rate FiO2 03/11/19 09:04 41 155/51 03/11/19 08:00 Nasal Cannula 4.0 03/11/19 07:56 98 03/11/19 07:00 97.6 20 97.6 ROS: No Chest Pain, No Abdominal Pain General: Alert, No acute distress Lungs: Other (dimished BS) Cardiovascular: S1 Abdomen: Soft Neuro Exam: Alert Extremities: No Edema Skin: Warm Labs Laboratory Tests Test 03/09/19 11:19 03/09/19 20:00 03/10/19 03:00 03/10/19 07:41 Glucose (Fingerstick) 157 mg/dL (70-99) 178 mg/dL (70-99) 151 mg/dL (70-99) White Blood Count 11.2 x10^3/uL (4.0-11.0) Red Blood Count 4.22 x10^6/uL (3.50-5.40) Hemoglobin 12.9 g/dL (12.0-15.5) Hematocrit 38.6 % (36.0-47.0) Mean Corpuscular Volume 91 fL (79-100) Mean Corpuscular Hemoglobin 31 pg (25-35) Mean Corpuscular Hemoglobin Concent 33 g/dL (31-37) Red Cell Distribution Width 14.3 % (11.5-14.5) Platelet Count 216 x10^3/uL (140-400) Neutrophils (%) (Auto) 88 % (31-73) Lymphocytes (%) (Auto) 8 % (24-48) Monocytes (%) (Auto) 3 % (0-9) Eosinophils (%) (Auto) 0 % (0-3) Basophils (%) (Auto) 0 % (0-3) Neutrophils # (Auto) 9.9 x10^3/uL (1.8-7.7) Lymphocytes # (Auto) 0.9 x10^3/uL (1.0-4.8) Monocytes # (Auto) 0.4 x10^3/uL (0.0-1.1) Eosinophils # (Auto) 0.0 x10^3/uL (0.0-0.7) Basophils # (Auto) 0.0 x10^3/uL (0.0-0.2) Sodium Level 140 mmol/L (136-145) Potassium Level 4.3 mmol/L (3.5-5.1) Chloride Level 101 mmol/L (98-107) Carbon Dioxide Level 31 mmol/L (21-32) Anion Gap 8 (6-14) Blood Urea Nitrogen 26 mg/dL (7-20) Creatinine 1.1 mg/dL (0.6-1.0) Estimated GFR (Cockcroft-Gault) 49.4 BUN/Creatinine Ratio 24 (6-20) Glucose Level 163 mg/dL (70-99) Calcium Level 9.1 mg/dL (8.5-10.1) Total Bilirubin 0.4 mg/dL (0.2-1.0) Aspartate Amino Transf (AST/SGOT) 17 U/L (15-37) Alanine Aminotransferase (ALT/SGPT) 24 U/L (14-59) Alkaline Phosphatase 83 U/L (46-116) Total Protein 7.3 g/dL (6.4-8.2) Albumin 2.7 g/dL (3.4-5.0) Albumin/Globulin Ratio 0.6 (1.0-1.7) Triglycerides Level 176 mg/dL (0-150) Cholesterol Level 213 mg/dL (0-200) LDL Cholesterol, Calculated 130 mg/dL (0-100) VLDL Cholesterol, Calculated 35 mg/dL (0-40) Non-HDL Cholesterol Calculated 165 mg/dL (0-129) HDL Cholesterol 48 mg/dL (40-60) Cholesterol/HDL Ratio 4.4 Test 03/10/19 11:13 03/10/19 16:49 03/10/19 21:02 03/11/19 07:28 Glucose (Fingerstick) 161 mg/dL (70-99) 126 mg/dL (70-99) 137 mg/dL (70-99) 92 mg/dL (70-99) Laboratory Tests Test 03/10/19 11:13 03/10/19 16:49 03/10/19 21:02 03/11/19 07:28 Glucose (Fingerstick) 161 mg/dL (70-99) 126 mg/dL (70-99) 137 mg/dL (70-99) 92 mg/dL (70-99) Medications Active Scripts Medications Dose Route/Sig Max Daily Dose Days Date Category Jardiance (Empagliflozin) 10 Mg Tablet 10 Mg PO DAILY 03/08/19 Reported Celebrex (Celecoxib) 200 Mg Capsule 200 Mg PO BID PRN 30 12/02/14 Reported Pantoprazole Sodium (Pantoprazole Sodium) 40 Mg Tablet.dr 1 Tab PO DAILY 11/29/14 Reported Advair 500-50 Diskus (Fluticasone/Salmeterol) 1 Each Disk.w.dev 1 Puff IH BID 11/29/14 Reported Dimenhydrinate 50 Mg Tablet 50 Mg PO 11/29/14 Reported Colace Clear (Docusate Sodium) 50 Mg Capsule 50 Mg PO 11/29/14 Reported Zofran (Ondansetron Hcl) 8 Mg Tablet 1 Tab PO Q8HRS 11/29/14 Reported Gabapentin (Gabapentin) 300 Mg Capsule 1 Cap PO TID 11/29/14 Reported Prozac (Fluoxetine Hcl) 40 Mg Capsule 1 Cap PO DAILY 11/29/14 Reported Oxycontin (Oxycodone HCl) 10 Mg Tab.er.12h 1 Tab PO BID 11/29/14 Reported Lisinopril 40 Mg Tablet 1 Tab PO DAILY 11/29/14 Reported Pravastatin Sodium 80 Mg Tablet 1 Tab PO DAILY 11/29/14 Reported Folic Acid 1 Mg Tablet 1 Tab PO DAILY 11/29/14 Reported Proair Hfa Inhaler (Albuterol Sulfate) 8.5 Gm Hfa.aer.ad 2 Puff IH PRN Q4-6HRS 11/29/14 Reported Cyclobenzaprine Hcl 10 Mg Tablet 1 Tab PO TID 11/29/14 Reported Montelukast Sodium Tablet (Montelukast Sodium) 10 Mg Tablet 1 Tab PO DAILY 11/29/14 Reported K-Tab ER (Potassium Chloride) 20 Meq Tablet.er 20 Meq PO DAILY 11/29/14 Reported Azelastine Hcl 137 Mcg/0.137 Ml [place].pump 2 [place] NS BID 11/29/14 Reported [atarax] 11/29/14 Reported Flonase Allergy Relief (Fluticasone Propionate) 9.9 Ml [place].susp 9.9 Ml NS 11/29/14 Reported Impression . 1. Dyspnea with acute hypoxic respiratory failure along with ankle edema, likely related to congestive heart failure. Likely acute diastolic HF, EF normal 2. Abnormal chest x-ray with bilateral interstitial infiltrates, likely congestive heart failure. Good response to diuretics. 3. Chronic cough, which has been present for the last 6 months and most likely lisinopril-induced cough. 4. Morbid obesity. 5. Underlying obstructive sleep apnea with good compliance to CPAP. 6. Chronic respiratory failure with home oxygen at nighttime and p.r.n. during the day. Plan . 1. Continue with present oxygen, keep saturation 92% and above. 2. Continue diuresis per cardiology 3. she has made clinical improvement. 4. monitor renal function. 5. Continue bronchodilators. 6. taper steroids 7. dc oral antibiotics 8. discontinued lisinopril and changed to cozar. 9. echocardiogram.reviewed 10. Discussed with RN/ Pt ok with dc to [facility] Chinchilla MD Mar 11, 2019 10:02
--- NOTE | 2019-03-11 10:37 | PDOC3 ---
Discharge Summary Visit Information Date of Admission: Mar 07, 2019 Date of Discharge: Mar 11, 2019 Admitting Diagnosis Comment: Acute hypoxia - COPD exacerbation plus apparent CHF exacerbation, COPD - O2 dependent, 4 LNC Depression - Diabetes-Type II - Hypertensive urgency - Chronic back pain and chronic knee pain - Pulmonary congestion - Worst headache of life - GEn weakness- SNU PUlmo hypertension-high PA pressures Normal systolic function-EF 50-55% Final Diagnosis Problems Medical Problems: (1) Acute on chronic diastolic CHF (congestive heart failure) Status: Acute (2) Acute respiratory failure with hypoxia Status: Acute (3) Asthma Status: Chronic (4) CHF exacerbation Status: Acute (5) Chronic back pain Status: Chronic (6) Chronic knee pain Status: Chronic (7) COPD (chronic obstructive pulmonary disease) Status: Acute (8) COPD exacerbation Status: Acute (9) Depression Status: Chronic (10) DM type 2 (diabetes mellitus, type 2) Status: Chronic (11) Dyspnea Status: Acute (12) Headache Status: Acute (13) HTN (hypertension) Status: Chronic (14) Hyperlipidemia Status: Chronic (15) Hypertensive urgency Status: Acute (16) Pulmonary congestion Status: Acute Brief Hospital Course Allergies Allergies Coded Allergies Type Severity Reaction Last Updated Verified aspartame Allergy Severe THROAT SWELLS 03/07/19 Yes atorvastatin Allergy Severe ANAPHYLAXIS 03/10/19 Yes diclofenac Allergy Severe HIVES, THROAT SWELLS 03/10/19 Yes ibuprofen Allergy Severe Anaphylaxis -cuts off air supply per patient, TAKES ALLEVE 12/01/14 Yes phenytoin Allergy Severe HIVES, THROAT SWELLS 03/10/19 Yes Garlic. Allergy Intermediate 12/02/14 Yes Milk Containing Products Allergy Intermediate 12/02/14 Yes Penicillins Allergy Intermediate 03/10/19 Yes acetaminophen Allergy Intermediate Hives 03/07/19 No aspirin Allergy Intermediate 03/10/19 Yes cephalexin Allergy Intermediate HIVES, SWELLING 03/11/19 Yes cheese Allergy Intermediate 03/08/19 Yes chlorzoxazone Allergy Intermediate 03/10/19 Yes codeine Allergy Intermediate 03/10/19 Yes diphenhydramine Allergy Intermediate Hives 03/10/19 Yes doxycycline Allergy Intermediate Hives 03/10/19 Yes egg Allergy Intermediate 03/10/19 Yes erythromycin base Allergy Intermediate Hives 03/10/19 Yes etodolac Allergy Intermediate Hives 03/10/19 Yes ezetimibe Allergy Intermediate Hives 03/10/19 Yes glucosamine Allergy Intermediate 03/10/19 Yes guaifenesin Allergy Intermediate 03/10/19 Yes hydrocodone Allergy Intermediate Hives 03/10/19 Yes iodine Allergy Intermediate Hives 03/10/19 Yes kiwi Allergy Intermediate 03/10/19 Yes methylprednisolone Allergy Intermediate Hives 03/10/19 Yes orphenadrine Allergy Intermediate Hives 03/10/19 Yes peanut Allergy Intermediate 03/10/19 Yes phenazopyridine Allergy Intermediate Hives 03/10/19 Yes pork derived (porcine) Allergy Intermediate 03/08/19 Yes ranitidine Allergy Intermediate Hives 03/10/19 Yes rosuvastatin Allergy Intermediate 03/10/19 Yes salicylic acid Allergy Intermediate 03/10/19 Yes shellfish derived Allergy Intermediate 03/10/19 Yes simvastatin Allergy Intermediate Hives 03/10/19 Yes sulfite Allergy Intermediate 03/10/19 Yes tramadol Allergy Intermediate Hives 03/10/19 Yes tree nut Allergy Intermediate 12/02/14 Yes walnut Allergy Intermediate 03/08/19 Yes yellow dye Allergy Intermediate 03/08/19 Yes morphine Adverse Reaction Intermediate vomiting 03/10/19 Yes Vital Signs Vital Signs Date Time Temp Pulse Resp B/P (MAP) Pulse Ox O2 Delivery O2 Flow Rate FiO2 03/11/19 09:04 41 155/51 03/11/19 08:00 Nasal Cannula 4.0 03/11/19 07:56 98 03/11/19 07:00 97.6 20 97.6 Lab Results Laboratory Tests Test 03/09/19 11:19 03/09/19 20:00 03/10/19 03:00 03/10/19 07:41 Glucose (Fingerstick) 157 mg/dL (70-99) 178 mg/dL (70-99) 151 mg/dL (70-99) White Blood Count 11.2 x10^3/uL (4.0-11.0) Red Blood Count 4.22 x10^6/uL (3.50-5.40) Hemoglobin 12.9 g/dL (12.0-15.5) Hematocrit 38.6 % (36.0-47.0) Mean Corpuscular Volume 91 fL (79-100) Mean Corpuscular Hemoglobin 31 pg (25-35) Mean Corpuscular Hemoglobin Concent 33 g/dL (31-37) Red Cell Distribution Width 14.3 % (11.5-14.5) Platelet Count 216 x10^3/uL (140-400) Neutrophils (%) (Auto) 88 % (31-73) Lymphocytes (%) (Auto) 8 % (24-48) Monocytes (%) (Auto) 3 % (0-9) Eosinophils (%) (Auto) 0 % (0-3) Basophils (%) (Auto) 0 % (0-3) Neutrophils # (Auto) 9.9 x10^3/uL (1.8-7.7) Lymphocytes # (Auto) 0.9 x10^3/uL (1.0-4.8) Monocytes # (Auto) 0.4 x10^3/uL (0.0-1.1) Eosinophils # (Auto) 0.0 x10^3/uL (0.0-0.7) Basophils # (Auto) 0.0 x10^3/uL (0.0-0.2) Sodium Level 140 mmol/L (136-145) Potassium Level 4.3 mmol/L (3.5-5.1) Chloride Level 101 mmol/L (98-107) Carbon Dioxide Level 31 mmol/L (21-32) Anion Gap 8 (6-14) Blood Urea Nitrogen 26 mg/dL (7-20) Creatinine 1.1 mg/dL (0.6-1.0) Estimated GFR (Cockcroft-Gault) 49.4 BUN/Creatinine Ratio 24 (6-20) Glucose Level 163 mg/dL (70-99) Calcium Level 9.1 mg/dL (8.5-10.1) Total Bilirubin 0.4 mg/dL (0.2-1.0) Aspartate Amino Transf (AST/SGOT) 17 U/L (15-37) Alanine Aminotransferase (ALT/SGPT) 24 U/L (14-59) Alkaline Phosphatase 83 U/L (46-116) Total Protein 7.3 g/dL (6.4-8.2) Albumin 2.7 g/dL (3.4-5.0) Albumin/Globulin Ratio 0.6 (1.0-1.7) Triglycerides Level 176 mg/dL (0-150) Cholesterol Level 213 mg/dL (0-200) LDL Cholesterol, Calculated 130 mg/dL (0-100) VLDL Cholesterol, Calculated 35 mg/dL (0-40) Non-HDL Cholesterol Calculated 165 mg/dL (0-129) HDL Cholesterol 48 mg/dL (40-60) Cholesterol/HDL Ratio 4.4 Test 03/10/19 11:13 03/10/19 16:49 03/10/19 21:02 03/11/19 07:28 Glucose (Fingerstick) 161 mg/dL (70-99) 126 mg/dL (70-99) 137 mg/dL (70-99) 92 mg/dL (70-99) Laboratory Tests Test 03/10/19 11:13 03/10/19 16:49 03/10/19 21:02 03/11/19 07:28 Glucose (Fingerstick) 161 mg/dL (70-99) 126 mg/dL (70-99) 137 mg/dL (70-99) 92 mg/dL (70-99) Brief Hospital Course Ms. Reid is a 68 old obese white female who came in dyspnea COPD. She has some cardiac risk factors comanage with cardiology and pulmonary. Feels better with CPM of cardiac meds and some pulmonary supportive meds. Cardiology mentions 4 weeks outpatient MPI because of risk factors. Blood pressure was on the high side, losartan of 100 mg once a day that is a change from her home dose. No AV olive blocking agents because of some bradycardia as per cardiology Cards recommends Norvasc as a third agent if blood pressure remains high in SNU Full code Consults performed pulmonary, cardiology Procedures performed echocardiogram shows high pulmonary pressures 54 otherwise normal EF 50-55% Discharge Information Condition at Discharge: Improved, Stable Disposition/Orders: Other (snu) Scheduled Albuterol Sulfate (Proair Hfa Inhaler) 8.5 Gm Hfa.aer.ad, 2 PUFF IH PRN Q4-6HRS, #1 (Reported) Entered as Reported by: YUNIOR LOUIS on 11/29/142200 Last Action: Continued on 03/07/191655 by LEMUEL MURPHY MD Azelastine Hcl (Azelastine Hcl) 137 Mcg/0.137 Ml [place].pump, 2 SPRAY NS BID, #90 Ref 3 (Reported) Entered as Reported by: YUNIOR LOUIS on 11/29/142200 Last Action: Continued on 03/07/191655 by LEMUEL MURPHY MD Benzonatate (Benzonatate) 100 Mg Capsule, 100 MG PO [id number] for cough, #21 Prescribed by: CHIP DELUCA on 03/11/19 0815 Cyclobenzaprine Hcl (Cyclobenzaprine Hcl) 10 Mg Tablet, 1 TAB PO TID, #90 (Reported) Entered as Reported by: YUNIOR LOUIS on 11/29/142200 Last Action: Continued on 03/07/191655 by LEMUEL MURPHY MD Doxycycline Hyclate (Doxycycline Hyclate) 100 Mg Tablet, 100 MG PO BID for bronchitis for 7 Days, #14 Prescribed by: CHIP DELUCA on 03/11/19 0815 Empagliflozin (Jardiance) 10 Mg Tablet, 10 MG PO DAILY for HIGH BLOOD GLUCOSE, (Reported) Entered as Reported by: ISI DURAN on 03/08/19 1205 Last Action: Converted on 03/08/191209 by ISI DURAN Fluoxetine Hcl (Prozac) 40 Mg Capsule, 1 CAP PO DAILY, #30 Ref 3 (Reported) Entered as Reported by: YUNIOR LOUIS on 11/29/142200 Last Action: Converted on 03/07/192017 by LEMUEL MURPHY MD Fluticasone/Salmeterol (Advair 500-50 Diskus) 1 Each Disk.w.dev, 1 PUFF IH BID, #1 Ref 5 (Reported) Entered as Reported by: YUNIOR LOUIS on 11/29/142200 Folic Acid (Folic Acid) 1 Mg Tablet, 1 TAB PO DAILY, #90 Ref 1 (Reported) Entered as Reported by: YUNIOR LOUIS on 11/29/142200 Last Action: Continued on 03/07/191655 by LEMUEL MURPHY MD Furosemide (Furosemide) 40 Mg Tablet, 40 MG PO DAILY for diastolic heart failure, #30 Prescribed by: CHIP DELUCA on 03/11/19 0815 Gabapentin (Gabapentin ) 300 Mg Capsule, 1 CAP PO TID, #90 Ref 5 (Reported) Entered as Reported by: YUNIOR LOUIS on 11/29/142200 Last Action: Continued on 03/07/191655 by LEMUEL MURPHY MD Ipratropium/Albuterol Sulfate (Duoneb 0.5-3(2.5) Mg/3 Ml) 3 Ml Ampul.neb, 3 ML NEB RTQID for soa, #60 Prescribed by: CHIP DELUCA on 03/11/19814 Losartan Potassium (Cozaar ) 50 Mg Tablet, 100 MG PO DAILY for htn, #60 Prescribed by: CHIP DELUCA on 03/11/19814 Montelukast Sodium (Montelukast Sodium Tablet ) 10 Mg Tablet, 1 TAB PO DAILY, #30 Ref 5 (Reported) Entered as Reported by: YUNIOR LOUIS on 11/29/142200 Last Action: Continued on 03/07/191655 by LEMUEL MURPHY MD Ondansetron Hcl (Zofran) 8 Mg Tablet, 1 TAB PO Q8HRS, #30 Ref 1 (Reported) Entered as Reported by: YUNIOR LOUIS on 11/29/142200 Oxycodone Hcl (Oxycontin ) 10 Mg Tab.er.12h, 1 TAB PO BID, #60 (Reported) Entered as Reported by: YUNIOR LOUIS on 11/29/142200 Pantoprazole Sodium (Pantoprazole Sodium ) 40 Mg Tablet.dr, 1 TAB PO DAILY, #30 Ref 3 (Reported) Entered as Reported by: YUNIOR LOUIS on 11/29/142200 Last Action: Continued on 03/07/191655 by LEMUEL MURPHY MD Potassium Chloride (K-Tab ER) 20 Meq Tablet.er, 20 MEQ PO DAILY, (Reported) Entered as Reported by: YUNIOR LOUIS on 11/29/142200 Last Action: Converted on 03/07/191655 by LEMUEL MURPHY MD Pravastatin Sodium (Pravastatin Sodium) 80 Mg Tablet, 1 TAB PO DAILY, #30 Ref 5 (Reported) Entered as Reported by: YUNIOR LOUIS on 11/29/142200 Prednisone (Prednisone ) 10 Mg Tablet, 20 MG PO DAILY for cough, #3 Prescribed by: CHIP DELUCA on 03/11/19814 Scheduled PRN Celecoxib (Celebrex) 200 Mg Capsule, 200 MG PO BID PRN for PAIN for 30 Days, Ref 0 (Reported) Entered as Reported by: ALAINA MEADOWS on 12/02/14 1259 Oxycodone/Apap 5-325 (Percocet 5-325 Mg Tablet ) 1 Each Tablet, 1 TAB PO PRN Q6HRS PRN for PAIN, #30 Prescribed by: CHIP DELUCA on 03/11/19 08 [Nicotine 21MG] 1 PATCH PATCH, 1 PATCH TD PRN DAILY PRN for SMOKING CESSATION, #14 Prescribed by: CHIP DELUCA on 03/11/19 0815 Miscellaneous Medications Dimenhydrinate (Dimenhydrinate) 50 Mg Tablet, 50 MG PO, (Reported) Entered as Reported by: YUNIOR LOUIS on 11/29/142200 Docusate Sodium (Colace Clear) 50 Mg Capsule, 50 MG PO, (Reported) Entered as Reported by: YUNIOR LOUIS on 11/29/142200 Fluticasone Propionate (Flonase Allergy Relief) 9.9 Ml [place].susp, 9.9 ML NS, (Reported) Entered as Reported by: YUNIOR LOUIS on 11/29/142200 Discontinued Medications Lisinopril (Lisinopril) 40 Mg Tablet, 1 TAB PO DAILY, #30 Ref 5 (Reported) Entered as Reported by: YUNIOR LOUIS on 11/29/142200 Last Action: Continued on 03/07/19 1656 by LEMUEL MURPHY MD [atarax] , (Reported) Entered as Reported by: YUNIOR LOUIS on 11/29/142200 CHIP DELUCA MD Mar 11, 2019 10:37
[2019-03-11 11:25] VITALS: BP 134/62
--- NOTE | 2019-03-11 13:49 | SNU/HH DC ---
DISCHARGE WITH HOME HEALTH DISCHARGE INFORMATION: Discharge Date: Mar 11, 2019 Final Diagnosis: Problems Medical Problems: (1) Acute on chronic diastolic CHF (congestive heart failure) Status: Acute (2) Acute respiratory failure with hypoxia Status: Acute (3) Asthma Status: Chronic (4) CHF exacerbation Status: Acute (5) Chronic back pain Status: Chronic (6) Chronic knee pain Status: Chronic (7) COPD (chronic obstructive pulmonary disease) Status: Acute (8) COPD exacerbation Status: Acute (9) Depression Status: Chronic (10) DM type 2 (diabetes mellitus, type 2) Status: Chronic (11) Dyspnea Status: Acute (12) Headache Status: Acute (13) HTN (hypertension) Status: Chronic (14) Hyperlipidemia Status: Chronic (15) Hypertensive urgency Status: Acute (16) Pulmonary congestion Status: Acute Condition on Discharge: Stable CODE STATUS: Code Status: Full HOME HEALTH: Face to Face: I certify this patient is under my care and that I, or a nurse practitioner or physician's assistant wrestling coach working with me, had a face to face encounter that meets the physician face to face encounter requirements with this patient on []. RN For Eval/Treatment: Yes Physical Therapy For: Evalulation/Treatment Occupational Therapy For: Evaluation/Treatment Home Health Aide For: Self-care [employer] SERVER For: Community Resources Pt Meets Homebound Status: Unsteady balance w/ amb, POST DISCHARGE ORDERS: Activity Instructions for Disc: No restrictions, Activity as tolerated Weight Bearing Status after Di: As tolerated DIET AFTER DISCHARGE: Cardiac CHECKS AFTER DISCHARGE: Checks after discharge: Check blood press - daily FOLLOW-UP: PCP to follow Home Health: ff up pcp re htn 2-4 weeks TREATMENT/EQUIPMENT ORDERS: Adaptive Equipment Issued: None Discharge Respiratory Equipmen: Oxygen CERTIFICATION STATEMENT: Certification Statement: Certification Statement: Based on the above finding, I certify that this patient is confined to the home and needs intermittent fdc care, physical therapy and/or speech therapy, or continues to need occupational therapy.~ This patient is under my care, and I have initiated the establishment of the plan of care.~ This patient will be followed by myself or a community physician who will periodically review the plan of care. Home Meds Active Scripts [Nicotine 21MG] 1 PATCH PATCH No Conflict Check, 1 PATCH TD PRN DAILY PRN for SMOKING CESSATION, #14 Prov:CHIP DELUCA MD 03/11/19 Prednisone (PREDNISONE ) 10 Mg Tablet, 20 MG PO DAILY for cough, #3 TAB Prov:CHIP DELUCA MD 03/11/19 Benzonatate (BENZONATATE) 100 Mg Capsule, 100 MG PO [id number] for cough, #21 CAP Prov:CHIP DLEUCA MD 03/11/19 Furosemide (FUROSEMIDE) 40 Mg Tablet, 40 MG PO DAILY for diastolic heart failure, #30 TAB Prov:CHIP DELUCA MD 03/11/19 Oxycodone/Apap 5-325 (PERCOCET 5-325 MG TABLET ) 1 Each Tablet, 1 TAB PO PRN Q6HRS PRN for PAIN, #30 TAB Prov:CHIP DELUCA MD 03/11/19 Losartan Potassium (COZAAR ) 50 Mg Tablet, 100 MG PO DAILY for htn, #60 TAB Prov:CHIP DELUCA MD 03/11/19 Doxycycline Hyclate (DOXYCYCLINE HYCLATE) 100 Mg Tablet, 100 MG PO BID for bronchitis for 7 Days, #14 TAB Prov:CHIP DELUCA MD 03/11/19 Ipratropium/Albuterol Sulfate (DUONEB 0.5-3(2.5) MG/3 ML) 3 Ml Ampul.neb, 3 ML NEB RTQID for soa, #60 EACH Prov:CHIP DELUCA MD 03/11/19 Reported Medications Empagliflozin (Jardiance) 10 Mg Tablet, 10 MG PO DAILY for HIGH BLOOD GLUCOSE, TAB 03/08/19 Celecoxib (CELEBREX) 200 Mg Capsule, 200 MG PO BID PRN for PAIN for 30 Days, CAP 0 Refills 12/02/14 Pantoprazole Sodium (PANTOPRAZOLE SODIUM ) 40 Mg Tablet.dr, 1 TAB PO DAILY, #30 TAB 3 Refills 11/29/14 Fluticasone/Salmeterol (ADVAIR 500-50 DISKUS) 1 Each Disk.w.dev, 1 PUFF IH BID, #1 INHALER 5 Refills 11/29/14 Dimenhydrinate (DIMENHYDRINATE) 50 Mg Tablet, 50 MG PO 11/29/14 Docusate Sodium (Colace Clear) 50 Mg Capsule, 50 MG PO 11/29/14 Ondansetron Hcl (ZOFRAN) 8 Mg Tablet, 1 TAB PO Q8HRS, #30 TAB 1 Refill 11/29/14 Gabapentin (GABAPENTIN ) 300 Mg Capsule, 1 CAP PO TID, #90 CAP 5 Refills 11/29/14 Fluoxetine Hcl (PROZAC) 40 Mg Capsule, 1 CAP PO DAILY, #30 CAP 3 Refills 11/29/14 Oxycodone Hcl (OXYCONTIN ) 10 Mg Tab.er.12h, 1 TAB PO BID, #60 TAB 11/29/14 Pravastatin Sodium (PRAVASTATIN SODIUM) 80 Mg Tablet, 1 TAB PO DAILY, #30 TAB 5 Refills 11/29/14 Folic Acid (FOLIC ACID) 1 Mg Tablet, 1 TAB PO DAILY, #90 TAB 1 Refill 11/29/14 Albuterol Sulfate (PROAIR HFA INHALER) 8.5 Gm Hfa.aer.ad, 2 PUFF IH PRN Q4-6HRS, #1 INHALER 11/29/14 Cyclobenzaprine Hcl (CYCLOBENZAPRINE HCL) 10 Mg Tablet, 1 TAB PO TID, #90 TAB 11/29/14 Montelukast Sodium (MONTELUKAST SODIUM TABLET ) 10 Mg Tablet, 1 TAB PO DAILY, #30 TAB 5 Refills 11/29/14 Potassium Chloride (K-Tab ER) 20 Meq Tablet.er, 20 MEQ PO DAILY, TAB.SR 11/29/14 Azelastine Hcl (AZELASTINE HCL) 137 Mcg/0.137 Ml [place].pump, 2 SPRAY NS BID, #90 ML 3 Refills 11/29/14 Fluticasone Propionate (Flonase Allergy Relief) 9.9 Ml [place].susp, 9.9 ML NS 11/29/14 Discontinued Reported Medications Lisinopril (LISINOPRIL) 40 Mg Tablet, 1 TAB PO DAILY, #30 TAB 5 Refills 11/29/14 [atarax] No Conflict Check 11/29/14 CHIP DELUCA MD Mar 11, 2019 13:49
--- NOTE | 2019-03-11 14:30 | NUR ---
SS following up with discharge planning. [employer] denied pt for nursing home unit. landscape architect and planner, Nenita Preston, met with pt and discussed home healthcare. Pt agreeable to [facility], ; fax [phone]. SS phoned and faxed orders and referral to [facility].
[2019-03-11 15:24] VITALS: BP 134/71
--- NOTE | 2019-03-11 16:24 | NUR ---
This nurse assumed care for pt. around 1300. Pt. sitting up in chair wearing O2 4L NC. Pt. A&Ox4 pupils 4mm and reactive. Pt. pulses strong bilateral radial and dorsalis pedis. This nurse communicated with pt. during bedside shift report about concerns. Pt. wanting to know about DC. Pt. lungs CTA but diminished posteriorly. Pt. walked to restroom with walker and steady gait. Pt. bowel sounds active with BM today. Pt. hair clean. Skin clean, dry, intact. Pt. able to move all extremities with equal strength. Will continue to monitor pt.
--- NOTE | 2019-03-11 17:25 | NUR ---
Discharge Note: CHERY MITCHELL [address] Discharge instructions and discharge home medications reviewed with Patient and a copy given. All questions have been answered and understanding verbalized. F/u appoinments reviewed. The following instructions and handouts were given: COPD, COPD exacerbation. Discontinued lines and drains: peripheral IV removed, no complications. Patient discharged to home with home health via wc to private vehicle.
== END 2019-03-11 16:53 | disposition home or self-care (01) | DRG 291 ==
LOC: ER 13:23 → 6 SOUTH 15:49
PROVIDERS: ADMIT Internal Medicine; ATTEND Internal Medicine
DX: I11.0 Hypertensive heart disease with heart failure (principal); J96.21 Acute and chronic respiratory failure with hypoxia; J44.1 Chronic obstructive pulmonary disease with (acute) exacerbation; Z68.43 Body mass index [BMI] 50.0-59.9, adult; I50.33 Acute on chronic diastolic (congestive) heart failure; I16.0 Hypertensive urgency; E66.01 Morbid (severe) obesity due to excess calories; F32.9 Major depressive disorder, single episode, unspecified; G89.29 Other chronic pain; K21.9 Gastro-esophageal reflux disease without esophagitis; K57.90 Diverticulosis of intestine, part unspecified, without perforation or abscess without bleeding; M19.90 Unspecified osteoarthritis, unspecified site; F41.9 Anxiety disorder, unspecified; E78.5 Hyperlipidemia, unspecified; G47.33 Obstructive sleep apnea (adult) (pediatric); M81.0 Age-related osteoporosis without current pathological fracture; I27.20 Pulmonary hypertension, unspecified; E11.9 Type 2 diabetes mellitus without complications; Z96.653 Presence of artificial knee joint, bilateral; Z90.49 Acquired absence of other specified parts of digestive tract; Z82.49 Family history of ischemic heart disease and other diseases of the circulatory system; Z87.891 Personal history of nicotine dependence; Z99.81 Dependence on supplemental oxygen; Z88.8 Allergy status to other drugs, medicaments and biological substances; Z88.6 Allergy status to analgesic agent; Z88.1 Allergy status to other antibiotic agents; Z91.041 Radiographic dye allergy status; Z91.011 Allergy to milk products; Z88.5 Allergy status to narcotic agent; Z91.018 Allergy to other foods; Z88.0 Allergy status to penicillin; Z91.013 Allergy to seafood; Z79.899 Other long term (current) drug therapy; Z79.84 Long term (current) use of oral hypoglycemic drugs; Z79.51 Long term (current) use of inhaled steroids; Z90.710 Acquired absence of both cervix and uterus
CPT/HCPCS: 36415; 36600; 70450; 71045; 80048; 80053; 80061; 82805; 82962; 83605; 83690; 83735; 83880; 84443; 84484; 85007; 85025; 87040; 93005; 93306; 94618; 94640; 94760; J1650; J1940; J2920; J3475; J3490; J7512; J7613; J7620; J7626; 97116; 97530; 97535; 99285-25